=== PATIENT | male | born 1945 | race Two or more races ===

== ENCOUNTER → 2025-01-20 19:30 | Outpatient (REF) | payer OTHER, SELFPAY ==
--- OUTSIDE RECORDS SUMMARY | 2025-01-20 23:18 | XMS_ITS | Encounter Summary ---
Author Name [facility] [place] Address [address] [place] [id number] Care Team Providers Care Home Theater Experience Expert Name Role Phone KAJAL RUCKER Primary Care Provider Unavail able Insurance Providers: All historical and current Section Date Range: From patient's date of to the date document was created. This section includes the names of all active insurance providers for the patient. Insurance Provider Type of Coverage Plan Name Start of Policy Coverage End of Policy Coverage Group Number Member ID Insurance Provider's Telephone Number Policy Hilton's Name Patient's Relationship to Policy Hilton TITLE 19 MEDICAID TITLE 19 Nov 19, 2010 [id number] STEPHON BAUMANN [place] PATIENT Selected Encounter This section includes the information on record at [place] for the Encounter. Date/Time Encounter Type Encounter Description Reason Provider Source Nov 26, 2024 11:00 AM OFF/OP EST MARCH X REQ PHY/QHP PRIMARY CARE/MEDICINE ICD-10-CM Z71.89 Other specified counseling MARÍA GARCIA [facility] Encounter Template Text not used by [place] Assessments - Encounter Diagnoses This section includes the primary and secondary diagnoses documented for the Encounter. Date/Time Primary/Secondary Diagnosis Diagnosis Name Provider Source Nov 26, 2024 11:10 AM PRIMARY Other specified counseling [facility]ÍA [facility] [employer] Plan of Treatment: Future Appointments (+ 6 months) and Future Tests (+/- 45 days) The Plan of Treatment section includes future care activities for the patient from all [place] [facility]. This section includes future appointments and future orders which are active, pending or scheduled. Future Appointments This section includes appointments that were scheduled to occur 6 months from the date of the Encounter, up to a maximum of 20 appointments. The data comes from all [facility]. Appointment Date/Time Appointment Type Appointme nt Facility Name Dec 04, 2024 10:00 AM AMBULATORY - NONE [facility] Jan 28, 2025 12:30 PM AMBULATORY - MEDICINE [facility] Feb 04, 2025 01:00 PM AMBULATORY - NONE [facility] Feb 27, 2025 09:45 AM AMBULATORY - NONE [facility] Active, Pending, and Scheduled Orders This section includes a listing of several types of active, pending, and scheduled orders, including clinic medications orders, diagnostic test orders, procedure orders and consult orders; where the start date of the order is 45 days before the date of the Encounter or 45 days after the date of theEncounter. The data comes from all [facility]. Test Date/Time Test Type Test Details Facility Name Nov 05, 2024 06:28 PM Consult Order COMMUNITY CARE-NEUROLOGY [facility] Dec 02, 2024 11:30 AM Consult Order COMMUNITY [facility]-SLEEP STUDY [facility] Dec 23, 2024 12:00 AM Laboratory - Chemi stry Order LIVER FUNCTION BLOOD (SST-SERUM) [facility] Dec 23, 2024 12:00 AM Laboratory - Chemi stry Order ELECTROLYTE PANEL BLOOD (SST-SERUM) [facility] Vital Signs: All taken on the encounter date This section contains inpatient and outpatient Vital Signs collected on the date of the Encounter. Date/Time Temperature Pulse Blood Pressure Respiratory Rate SP02 Pain Height Weight Body Mass Index Source Nov 26, 2024 11:00 AM 97.6 58 148/92 18 95 161.6 26 [facility] Social History: Smoking Status (Most current) and Tobacco Use (All prior to encounter date) This section includes the most current, and the historical, smoking and tobacco- related health factors from the [place] facility where the Encounter took place. Current Smoking Status This section includes the most current smoking, or tobacco-related health factor, from the [place] facility where the Encounter took place. Date/Time Current Smoking Status Comment Ziyad granda Nov 29, 2023 12:43 PM VA-TOBACCO FORMER USER [facility] Tobacco Use History This section includes a history of the smoking, or tobacco-related health factors, that were collected on or before the date of the Encounter. The data comes from the [place] facility where the Encounter took place. Date/Time Smoking Status/Tobacco Use Comment F acian Nov 29, 2023 12:43 PM VA-TOBACCO QUIT 15 YRS OR MORE [facility] [employer] Nov 10, 2022 01:28 PM VA-TOBACCO [facility]ER [facility] [employer] Nov 10, 2022 01:28 PM [place]-TOBACCO QUIT 15 YRS OR MORE [facility] Advance Directives: All historical and current Section Date Range: From patient's date of to the date document was created. This section includes ALL of a patient's completed or amended [place] Advance and Rescinded Directives. The entries below indicate that a directive exists for the patient, but an actual copy is not included with this document. The data comes from all [place] facilities. Date Advance Directives Provider Source Dec 30, 2024 ADVANCE DIRECTIVE DISCUSSION JEFFREY BECKHAM Dec 09, 2010 ADVANCE DIRECTIVE CARINA AVERY Encounter Notes: All associated encounter notes This section contains the clinical notes associated to the Encounter. Date/Time Encounter Note(s) Provider Source Nov 26, 2024 11:01 AM PRIMARY CARE OUTCT RAYMUNDO NOTE: LOCAL TITLE: AMBULATORY/OUTPATIENT CARE NOTE STANDARD TITLE: PRIMARY CARE OUTPATIENT NOTE DATE OF NOTE: NOV 26, 2024@11:01 ENTRY DATE: NOV 26, 2024@11:01:32 AUTHOR: MARYJANE GARCIA EXP COSIGNER: URGENCY: STATUS: COMPLETED AMBULATORY/OUTPATIENT CARE NOTE Has ADDENDA F: Low back pain D&A: [place] presents to sick call endorsing x 1 month right sided low back pain with parestheias radiating down the right calf. Denies any issues with moving bowels, has dx of benign hypertrophy of prostate. 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 Infant And Toddler Teacher will reach out to pact team with addendum to this note. R: To be evaluated by sick call provider SHEYLA Blood Pressure: 148/92 (11/26/2024 11:00) Pain: 1 (11/05/2024 10:07) Patient Height: 66 in [167.6 cm] (05/23/2022 15:05) Patient Weight: 161.6 lb [73.30 kg] (11/26/2024 11:00) Pulse: 58 (11/26/2024 11:00) Respiration: 18 (11/26/2024 11:00) Temperature: 97.6 F [36.4 C] (11/26/2024 11:00) /ethan/ MARYJANE GARCIA Registered Nurse Signed: 11/26/2024 11:11 Receipt Acknowledged By: 11/26/2024 11:36 /ROSALIA Lin RN-BC REGISTERED NURSE 11/26/2024 ADDENDUM STATUS: COMPLETED Comment added to CC neurology consult requesting cc staff follow up with to update on status of consult. /ROSALIA Lin RN-BC REGISTERED NURSE Signed: 11/26/2024 11:31 MARYJANE GARCIA [place] [facility]
--- OUTSIDE RECORDS SUMMARY | 2025-01-20 23:18 | XMS_ITS | Encounter Summary ---
Author Name [facility] [place] Address [address] [place] [id number] Care Team Providers Care Sane Nurse Name Role Phone KAJAL RUCKER Primary Care [...] 19 MEDICAID TITLE 19 Nov 19, 2010 [id number] STEPHON BAUMANN [place] PATIENT Selected Encounter This section includes the information on record at [place] for the Encounter. Date/Time Encounter Type Encounter Description Reason Pro vider Source Dec 22, 2024 03:06 PM Outpatient Encounter PRIMARY CARE/MEDICINE IHE Encounter Template Text not used by [place] Plan of Treatment: Future Appointments (+ 6 months) and Future Tests (+/- 45 days) The Plan of Treatment section includes future care activities for the patient from all [place] treatmentfacilities. This section includes future appointments and future orders which are active, pending or scheduled. Future Appointments This section includes appointments that were scheduled to occur 6 months from the date of the Encounter, up to a maximum of 20 appointments. The data comes from all [place] treatment facilities. Appointment Date/Time Appointment Type Appointme nt Facility Name Jan 28, 2025 12:30 PM AMBULATORY - MEDICINE [facility] Feb 04, 2025 01:00 PM AMBULATORY - NONE [place] [facility] [place] [facility] Feb 27, 2025 09:45 AM [facility] [place] [facility] Active, Pending, and Scheduled Orders This section includes a listing of several types of active, pending, and scheduled orders, including clinic medications orders, diagnostic test orders, procedure orders and consult orders; where the start date of the order is 45 days before the date of the Encounter or 45 days after the date of theEncounter. The data comes from all [place] treatment facilities. Test Date/Time Test Type Test Details Facility Name Dec 02, 2024 11:30 AM Consult Order COMM[facility]ITY [facility]-SLEEP STUDY Cons Payment Rep's [facility] Dec 23, 2024 12:00 AM Laboratory - Chemi stry Order LIVER FUNCTION BLOOD (SST-SERUM) [facility] Dec 23, 2024 12:00 AM Laboratory - Chemi stry Order ELECTROLYTE PANEL BLOOD (SST-SERUM) [facility] Jan 20, 2025 01:59 PM Consult Order [facility]-PULMONARY Cons Payment Rep's [facility] Social History: Smoking Status (Most current) and Tobacco Use (All prior to encounter date) This section includes the most current, and the historical, smoking and tobacco- related health factors from the [place] facility where the Encounter took place. Current Smoking Status This section includes the most current smoking, or tobacco-related health factor, from the [place] facility where the Encounter took place. Date/Time Current Smoking Status Comment Facil ity Nov 29, 2023 12:43 PM VA-TOBACCO FORMER USER [facility] Tobacco Use History This section includes a history of the smoking, or tobacco-related health factors, that were collected on or before the date of the Encounter. The data comes from the [place] facility where the Encounter took place. Date/Time Smoking Status/Tobacco Use Comment F acility Nov 29, 2023 12:43 PM VA-TOBACCO QUIT 15 YRS OR MORE IN [facility] [place] [facility] Nov 10, 2022 01:28 PM VA-TOBACCO FORMER USER IN [facility] [place] [facility] Nov 10, 2022 01:28 PM VA-TOBACCO QUIT 15 YRS OR MORE [facility] Advance Directives: All historical and current Section Date Range: From patient's date of to the date document was created. This section includes ALL of a patient's completed or amended [place] Advance and Rescinded Directives. The entries below indicate that a directive exists for the patient, but an actual copy is not included with this document. The data comes from all [place] facilities. Date Advance Directives Provider Source Dec 30, 2024 ADVANCE DIRECTIVE DISCUSSION JEFFREY BECKHAM [place] Dec 09, 2010 ADVANCE DIRECTIVE CARINA AVERY JESUS Encounter Notes: All associated encounter notes This section contains the clinical notes associated to the Encounter. Date/Time Encounter Note(s) Provider Source Dec 22, 2024 03:11 PM ADDENDUM: LOCAL TITLE: Addendum STANDARD TITLE: ADDENDUM DATE OF NOTE: DEC 22, 2024@15:11:25 ENTRY DATE: DEC 22, 2024@15:11:26 AUTHOR: BG LAZAR COSIGNER: URGENCY: STATUS: COMPLETED Placed lab orders for electrolyte panel and liver function tests as recommended in [facility] discharge record noted above. /ethan/ ROSALIA BARRIOS RN-BC REGISTERED NURSE Signed: 12/22/2024 15:12 Receipt Acknowledged By: 12/23/2024 07:59 /ethan/ CANDACE ZABALA CERTIFIED NURSE PRACTITIONER ==== --- Original Document --- 12/22/24 NON-VA HOSPITALIZATIONS/ER: NON VA DISCHARGE SUMMARY This data contains relevant information copied & pasted from a NON [place] source. Efforts are made to ensure congruency between this note & the original. This note not DOES NOT contain the entirety of the original. Please see [employer] to view the original note/document. 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) General medical ([id number] ) GERD without esophagitis (K21.9) HLD (hyperlipidemia) (E78.5) Diarrhea (R19.7) Nausea and vomiting (R11.2) Disorder of electrolytes (E87.8) Transaminitis (R74.01) Vertigo (R42) _ Discharge Medications Albuterol (albuterol CFC free 90 mcg/inh inhalation aerosol) 2 puff(s) Inhalation Every 4 hours as needed as needed for wheezing Aspirin (aspirin 81 mg oral capsule) 1 capsule 81 Milligram By Mouth Daily Atorvastatin (Lipitor 40 mg oral tablet) 1 tab(s) 40 Milligram By Mouth Daily at bedtime Brimonidine Ophthalmic (brimonidine 0.2% ophthalmic solution) 1 Drops Eyes, Both Every 8 hours Finasteride (finasteride 5 mg oral tablet) 1 tab(s) 5 Milligram By Mouth Daily Fluticasone Nasal (fluticasone 50 mcg/inh nasal spray) 1 spray(s) Nares, Both 2 times a day Fluticasone-Salmeterol (Wixela Inhub 250 mcg-50 mcg inhalation powder) 1 inhalation Inhalation 2 times a day rinse mouth and throat after use Hydrochlorothiazide-Losartan (hydrochlorothiazide-losartan 25 mg-100 mg oral tablet) 1 tab(s) By Mouth Daily Loratadine (loratadine 10 mg oral tablet) 10 Milligram 1 tablet By Mouth Daily Montelukast (montelukast 10 mg oral tablet) 10 Milligram 1 tablet By Mouth Daily Omeprazole (omeprazole 20 mg oral delayed release tablet) 1 tab(s) 20 Milligram By Mouth Daily PCP Follow-Up/Heads-Up Electrolyte abnormalities/transaminitis - lab abnormalities found while inpatient like 2/2 norovirus gastroenteritis. Please monitor electrolytes and liver panel in 1 week. Patient Instructions You presented to the hospital for ongoing nausea, vomiting, and diarrhea. Testing was positive for norovirus which caused inflammation of your colon. Because of your vomiting and diarrhea you had some lab abnormalities that included low levels of electrolytes. Fortunately, your presenting symptoms have improved and your labs are normal. Please follow-up with your PCP to check your electrolytes in 1 week. Labs also showed possible inflammation of your liver. This may be due to to the viral infection. Please follow-up with your PCP to check liver tests to see if that has resolved. Upcoming Appointments: 01/28/2025 12:30 CWM/SO/PACT 7 02/04/2025 13:00 [facility] DMD 3 PM 02/27/2025 09:45 [facility] RDH 2 AM SENT TO SCANNING This note is entered for the sole purpose of scanning Non-VA documentation into [employer]. /ethan/ ROSALIA BARRIOS RN-BC REGISTERED NURSE Signed: 12/22/2024 15:09 BG LAZAR Dec 22, 2024 03:06 PM NONVA NOTE: LOCAL TITLE: NON-VA HOSPITALIZATIONS/ER STANDARD TITLE: NONVA NOTE DATE OF NOTE: DEC 22, 2024@15:06 ENTRY DATE: DEC 22, 2024@15:07:01 AUTHOR: BG LAZAR COSIGNER: URGENCY: STATUS: COMPLETED NON-VA HOSPITALIZATIONS/ER Has ADDENDA NON VA DISCHARGE SUMMARY This data contains relevant information copied & pasted from a NON [place] source. Efforts are made to ensure congruency between this note & the original. This note not DOES NOT contain the entirety of the original. Please see [employer] to view the original note/document. 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) General medical ([id number] ) GERD without esophagitis (K21.9) HLD (hyperlipidemia) (E78.5) Diarrhea (R19.7) Nausea and vomiting (R11.2) Disorder of electrolytes (E87.8) Transaminitis (R74.01) Vertigo (R42) _ Discharge Medications Albuterol (albuterol CFC free 90 mcg/inh inhalation aerosol) 2 puff(s) Inhalation Every 4 hours as needed as needed for wheezing Aspirin (aspirin 81 mg oral capsule) 1 capsule 81 Milligram By Mouth Daily Atorvastatin (Lipitor 40 mg oral tablet) 1 tab(s) 40 Milligram By Mouth Daily at bedtime Brimonidine Ophthalmic (brimonidine 0.2% ophthalmic solution) 1 Drops Eyes, Both Every 8 hours Finasteride (finasteride 5 mg oral tablet) 1 tab(s) 5 Milligram By Mouth Daily Fluticasone Nasal (fluticasone 50 mcg/inh nasal spray) 1 spray(s) Nares, Both 2 times a day Fluticasone-Salmeterol (Wixela Inhub 250 mcg-50 mcg inhalation powder) 1 inhalation Inhalation 2 times a day rinse mouth and throat after use Hydrochlorothiazide-Losartan (hydrochlorothiazide-losartan 25 mg-100 mg oral tablet) 1 tab(s) By Mouth Daily Loratadine (loratadine 10 mg oral tablet) 10 Milligram 1 tablet By Mouth Daily Montelukast (montelukast 10 mg oral tablet) 10 Milligram 1 tablet By Mouth Daily Omeprazole (omeprazole 20 mg oral delayed release tablet) 1 tab(s) 20 Milligram By Mouth Daily PCP Follow-Up/Heads-Up Electrolyte abnormalities/transaminitis - lab abnormalities found while inpatient like 2/2 norovirus gastroenteritis. Please monitor electrolytes and liver panel in 1 week. Patient Instructions You presented to the hospital for ongoing nausea, vomiting, and diarrhea. Testing was positive for norovirus which caused inflammation of your colon. Because of your vomiting and diarrhea you had some lab abnormalities that included low levels of electrolytes. Fortunately, your presenting symptoms have improved and your labs are normal. Please follow-up with your PCP to check your electrolytes in 1 week. Labs also showed possible inflammation of your liver. This may be due to to the viral infection. Please follow-up with your PCP to check liver tests to see if that has resolved. Upcoming Appointments: 01/28/2025 12:30 CWM/SO/PACT 7 02/04/2025 13:00 [facility] DMD 3 PM 02/27/2025 09:45 [facility] RDH 2 AM SENT TO SCANNING This note is entered for the sole purpose of scanning Non-VA documentation into [employer]. /ethan/ ROSALIA BARRIOS RN-BC REGISTERED NURSE Signed: 12/22/2024 15:09 12/22/2024 ADDENDUM STATUS: COMPLETED Placed lab orders for electrolyte panel and liver function tests as recommended in [facility] discharge record noted above. /ethan/ ROSALIA BARRIOS RN-BC REGISTERED NURSE Signed: 12/22/2024 15:12 Receipt Acknowledged By: * AWAITING SIGNATURE * CORAZON SIMPSON KRISTIN [place]
--- OUTSIDE RECORDS SUMMARY | 2025-01-20 23:18 | XMS_ITS | Encounter Summary ---
Author Name [facility] [place] Organization [place] Address [address] [place] [id number] Care Team Providers Care Manager Hospital Name Role Phone KAJAL RUCKER Primary Care [...] 19 MEDICAID TITLE 19 Nov 19, 2010 [id number] STEPHON BAUMANN [place] PATIENT Selected Encounter This section includes the information on record at [place] for the Encounter. Date/Time Encounter Type Encounter Description Reason Pro vider Source Jan 16, 2025 09:28 AM Outpatient Encounter PRIMARY CARE/MEDICINE IHE Encounter Template Text not used by [place] Plan of Treatment: Future Appointments (+ 6 months) and Future Tests (+/- 45 days) The Plan of Treatment section includes future care activities for the patient from all [place] treatmentfacilities. This section includes future appointments and future orders which are active, pending or scheduled. Future Appointments This section includes appointments that were scheduled to occur 6 months from the date of the Encounter, up to a maximum of 20 appointments. The data comes from all [place] treatment facilities. Appointment Date/Time Appointment Type Appointme nt Facility Name Jan 28, 2025 12:30 PM AMBULATORY - MEDICINE [facility] Feb 04, 2025 01:00 PM AMBULATORY - NONE [place] [facility] [place] [facility] Feb 27, 2025 09:45 AM [facility] [place] [facility] Active, Pending, and Scheduled Orders This section includes a listing of several types of active, pending, and scheduled orders, including clinic medications orders, diagnostic test orders, procedure orders and consult orders; where the start date of the order is 45 days before the date of the Encounter or 45 days after the date of theEncounter. The data comes from all [place] treatment facilities. Test Date/Time Test Type Test Details Facility Name Dec 02, 2024 11:30 AM Consult Order [facility]-SLEEP STUDY Cons Entry Writer's [facility] Dec 23, 2024 12:00 AM Laboratory - Chemi stry Order LIVER FUNCTION BLOOD (SST-SERUM) [facility] Dec 23, 2024 12:00 AM Laboratory - Chemi stry Order ELECTROLYTE PANEL BLOOD (SST-SERUM) [facility] Jan 20, 2025 01:59 PM Consult Order [facility]-PULMONARY Cons Entry Writer's [facility] Social History: Smoking Status (Most current) and Tobacco Use (All prior to encounter date) This section includes the most current, and the historical, smoking and tobacco- related health factors from the [place] facility where the Encounter took place. Current Smoking Status This section includes the most current smoking, or tobacco-related health factor, from the [place] facility where the Encounter took place. Date/Time Current Smoking Status Comment Facil ity Nov 29, 2023 12:43 PM [facility]ACCO [facility] Tobacco Use History This section includes a history of the smoking, or tobacco-related health factors, that were collected on or before the date of the Encounter. The data comes from the [place] facility where the Encounter took place. Date/Time Smoking Status/Tobacco Use Comment F acility Nov 29, 2023 12:43 PM VA-TOBACCO QUIT 15 YRS OR MORE [place] [facility] [place] [facility] Nov 10, 2022 01:28 PM VA-TOBACCO FORMER USER [place] [facility] [place] [facility] Nov 10, 2022 01:28 PM VA-TOBACCO QUIT 15 YRS OR MORE [facility] Advance Directives: All historical and current Section Date Range: From patient's date of to the date document was created. This section includes ALL of a patient's completed or amended [place] Advance and Rescinded Directives. The entries below indicate that a directive exists for the patient, but an actual copy is not included with this document. The data comes from all [place] facilities. Date Advance Directives Provider Source Dec 30, 2024 ADVANCE DIRECTIVE DISCUSSION JEFFREY BECKHAM Dec 09, 2010 ADVANCE DIRECTIVE CARINA AVERY Encounter Notes: All associated encounter notes This section contains the clinical notes associated to the Encounter. Date/Time Encounter Note(s) Provider Source Jan 16, 2025 09:28 AM MEDICATION MGT NOT E: LOCAL TITLE: MEDICATION RENEWAL STANDARD TITLE: MEDICATION MGT NOTE DATE OF NOTE: JAN 16, 2025@09:28 ENTRY DATE: JAN 16, 2025@09:28:43 AUTHOR: BG LAZAR EXP COSIGNER: URGENCY: STATUS: COMPLETED Please renew for mail HCTZ 25MG/LOSARTAN 100MG TAB TAKE 1 TABLET BY MOUTH ONCE ACTIVE DAILY Indication: FOR HIGH BLOOD PRESSURE /es/ ROSALIA BARRIOS RN-BC REGISTERED NURSE Signed: 01/16/2025 09:29 Receipt Acknowledged By: * AWAITING SIGNATURE * KAJAL RUCKER KRISTIN [place]
--- OUTSIDE RECORDS SUMMARY | 2025-01-20 23:18 | XMS_ITS | Encounter Summary ---
Author Name [facility] [place] Organization [facility] [place] Address [address] [place] [id number] Care Team Providers Care Control Systems Designer Name Role Phone KAJAL RUCKER Primary Care [...] 19 MEDICAID TITLE 19 Nov 19, 2010 [id number] STEPHON BAUMANN [place] PATIENT Selected Encounter This section includes the information on record at [place] for the Encounter. Date/Time Encounter Type Encounter Description Reason Provider Source Nov 05, 2024 09:45 AM OFF/OP EST [facility] PRIMARY CARE/MEDICINE ICD-10-CM H57.12 Ocular pain, left eye PARRISH,RAMONITA K Danisha Encounter Template Text not used by [facility] Assessments - Encounter Diagnoses This section includes the primary and secondary diagnoses documented for the Encounter. Date/Time Primary/Secondary Diagnosis Diagnosis Name Provider Source Nov 05, 2024 10:35 AM PRIMARY Ocular pain, left eye PARRISHRAMONITA K [place] Plan of Treatment: Future Appointments (+ 6 months) and Future Tests (+/- 45 days) The Plan of Treatment section includes future care activities for the patient from all VA treatmentfacilities. This section includes future appointments and future orders which are active, pending or scheduled. Future Appointments This section includes appointments that were scheduled to occur 6 months from the date of the Encounter, up to a maximum of 20 appointments. The data comes from all [facility]. Appointment Date/Time Appointment Type Appointme nt Facility Name Nov 26, 2024 10:00 AM AMBULATORY - NONE [facility] [place] [facility] Nov 26, 2024 11:00 AM AMBULATORY - MEDICINE [facility] [place] [facility] Nov 26, 2024 11:30 AM AMBULATORY - MEDICINE [facility] [place] [facility] Dec 04, 2024 10:00 AM AMBULATORY - NONE [facility] [place] [facility] Jan 28, 2025 12:30 PM [facility] Feb 04, 2025 01:00 PM AMBULATORY - NONE [facility] [place] [facility] Feb 27, 2025 09:45 AM [facility] Active, Pending, and Scheduled Orders This section includes a listing of several types of active, pending, and scheduled orders, including clinic medications orders, diagnostic test orders, procedure orders and consult orders; where the start date of the order is 45 days before the date of the Encounter or 45 days after the date of theEncounter. The data comes from all [facility]. Test Date/Time Test Type Test Details Facility Name Nov 05, 2024 06:28 PM Consult Order COMMUNITY [facility]-NEUROLOGY [facility] Dec 02, 2024 11:30 AM Consult Order COMM[facility]SLEEP STUDY [facility] Vital Signs: All taken on the encounter date This section contains inpatient and outpatient Vital Signs collected on the date of the Encounter. Date/Time Temperature Pulse Blood Pressure Respiratory Rate SP02 Pain Height Weight Body Mass Index Source Nov 05, 2024 10:07 AM 98 65 125/80 16 95 1 [place] Social History: Smoking Status (Most current) and Tobacco Use (All prior to encounter date) This section includes the most current, and the historical, smoking and tobacco- related health factors from the [place] facility where the Encounter took place. Current Smoking Status This section includes the most current smoking, or tobacco-related health factor, from the [place] facility where the Encounter took place. Date/Time Current Smoking Status Comment Ziyad granda Nov 28, 2021 01:00 PM VA-TOBACCO FORMER USER [place] Tobacco Use History This section includes a history of the smoking, or tobacco-related health factors, that were collected on or before the date of the Encounter. The data comes from the [place] facility where the Encounter took place. Date/Time Smoking Status/Tobacco Use Comment Alexandra acian Nov 28, 2021 01:00 PM VA-TOBACCO QUIT 15 YRS OR MORE [place] Feb 28, 2019 11:48 AM VA-TOBACCO FORMER USER [place] Feb 28, 2019 11:48 AM VA-TOBACCO QUIT 15 YRS OR MORE [place] Jan 30, 2018 11:32 AM QUIT TOBACCO USE IN PAST YEAR [place] April 02, 2017 10:33 AM QUIT TOBACCO USE IN PAST Y EAR reports quitting 4-5 months ago [place] May 01, 2016 02:52 PM QUIT TOBACCO USE > 7 YEARS AGO Last smoked when I was 23 [place] Dec 21, 2011 10:15 AM QUIT TOBACCO USE > 7 YEARS AGO Pt. quit when he was 23 years old. [place] Dec 01, 2010 01:04 PM QUIT TOBACCO USE 1 -7 YEARS AGO [place] Dec 01, 2010 01:04 PM QUIT TOBACCO USE IN PAST Y EAR Pt. quit smoking a few months ago!! [place] Advance Directives: All historical and current Section Date Range: From patient's date of to the date document was created. This section includes ALL of a patient's completed or amended [place] Advance and Rescinded Directives. The entries below indicate that a directive exists for the patient, but an actual copy is not included with this document. The data comes from all [place] facilities. Date Advance Directives Provider Source Dec 30, 2024 ADVANCE DIRECTIVE DISCUSSION JEFFREY BECKHAM [place] Dec 09, 2010 ADVANCE DIRECTIVE CARINA AVERY Encounter Notes: All associated encounter notes This section contains the clinical notes associated to the Encounter. Date/Time Encounter Note(s) Provider Source Nov 05, 2024 10:36 AM ADDENDUM: LOCAL TITLE: Addendum STANDARD TITLE: ADDENDUM DATE OF NOTE: NOV 05, 2024@10:36:03 ENTRY DATE: NOV 05, 2024@10:36:04 AUTHOR: RAMONITA SENIOR COSIGNER: URGENCY: STATUS: COMPLETED [place] was seen at [facility] on 10/26/24 for left arm numbness. I have pasted a part of note from [facility] in sick call note. He was told to follow up with neurology. I told him I would forward message to you to consider consult. /ethan/ RAMONITA SENIOR RN PRIMARY CARE RN Signed: 11/05/2024 10:37 Receipt Acknowledged By: 11/05/2024 18:23 /ethan/ CANDACE ZABALA CERTIFIED NURSE PRACTITIONER 11/06/2024 09:51 /ethan/ ZHANE PEREA RN REGISTERED NURSE ====== --- Original Document --- 11/05/24 WALK-IN NOTE PRIMARY CARE (T): Data: 79year old MALE [place] reports to Primary Care clinic for Walk-In visit. 's PCP is CORAZON SIMPSON, last visit with PCP was , next visit scheduled for . Today Vet walks in to clinic with complaint of left eye pain and states he was recently in ER states told to see neurology Last recorded Vital Signs are: Temperature:98 F [36.7 C] (11/05/2024 10:07) Pulse:65 (11/05/2024 10:07) Blood Pressure:125/80 (11/05/2024 10:07) Respiration:16 (11/05/2024 10:07) Pain:1 (11/05/2024 10:07) Vet reports current allergies are: Remote Allergy Data No Remote Allergy/ADR Data available for this patient Current Medications from Active Med list include: Active Outpatient Medications (including Supplies): Active Outpatient Medications Status ====== 1) ALBUTEROL 90MCG (CFC-F) 200D ORAL INHL INHALE 2 PUFFS BY ACTIVE MOUTH EVERY 4 HOURS NEEDED COUGH,WHEEZING OR SHORTNESS OF BREATH 2) ASPIRIN 81MG EC TAB TAKE ONE TABLET BY MOUTH ONCE DAILY TO ACTIVE PREVENT STROKE/HEART ATTACK 3) ATORVASTATIN CALCIUM 80MG TAB TAKE ONE-HALF TABLET BY MOUTH ACTIVE ONCE DAILY AT BEDTIME FOR CHOLESTEROL 4) CELECOXIB 200MG CAP TAKE ONE CAPSULE BY MOUTH TWICE DAILY ACTIVE FOR Indication: ARTHRITIS 5) COAL TAR 0.5% SHAMPOO SUFFICIENT AMOUNT TOPICALLY ACTIVE ONCE DAILY NEEDED Indication: FOR SEBORRHEIC DERMATITIS 6) FINASTERIDE 5MG TAB TAKE ONE TABLET BY MOUTH ONCE DAILY ACTIVE DIRECTED BY PROVIDER 7) FLUTICAS 250/SALMETEROL 50 INHL DISK 60 INHALE 1 PUFF BY ACTIVE MOUTH TWICE DAILY - RINSE MOUTH AFTER USE 8) FLUTICASONE PROP 50MCG 120D NASAL INHL INSTILL 1 SPRAY INTO ACTIVE EACH NOSTRIL ONCE DAILY Indication: FOR NASAL IRRITATION/INFLAMMATION 9) HCTZ 25MG/LOSARTAN 100MG TAB TAKE 1 TABLET BY MOUTH ONCE ACTIVE DAILY Indication: FOR HIGH BLOOD PRESSURE 10) HYDROPHILIC (EQV EUCERIN) TOP CREAM APPLY A SMALL AMOUNT ACTIVE TOPICALLY ONCE DAILY TO DRY,CRACKED SKIN ON FEET Indication: FOR DRY SKIN FEET 11) LORATADINE 10MG TAB TAKE ONE TABLET BY MOUTH ONCE DAILY FOR ACTIVE ALLERGY Indication: FOR ALLERGIC CONJUNCTIVITIS 12) MIRABEGRON 50MG SA TAB TAKE ONE TABLET BY MOUTH ONCE DAILY ACTIVE 13) MONTELUKAST NA 10MG TAB TAKE ONE TABLET BY MOUTH ONCE DAILY ACTIVE FOR ASTHMA Indication: FOR SEASONAL RUNNY NOSE 14) NAPHAZOLINE HCL 0.012% OPH SOLN INSTILL 1 DROP INTO EACH EYE ACTIVE TWICE DAILY NEEDED Indication: FOR EYE IRRITATION 15) TRIAMCINOLONE ACETONIDE 0.1% CREAM APPLY A THIN LAYER ACTIVE TOPICALLY TWICE DAILY NEEDED Indication: FOR ITCHING Action: reports 2 days of increase pain to the left eye. States left upper lid with pain, states eye feels like it is burning and feels irritated Denies visual changes Denies trauma Denies crusty drainage on waking up in am. Reports tearing more over the past 2 days. Left upper lid with some edema and erythema, noted with a small white pimple area on the middle part of the upper lid just on the underside. Advised on warm compresses throughout the day Advised to gently cleanse area with baby shampoo. Advised to use otc pain med for comfort. Return to clinic if no improvement or if condition worsens. [place] reports going to ED 10/26/24 [facility] paper work states the following On reevaluation patient appears well. No further symptoms, no return of any numbness. Mostly this reproducible numbness in the hands occurring in the morning after sleeping with his neck to 1 side. I believe this is more likely to be cervical radiculopathy. CT head CT angio head and neck no obvious occlusion, no mass, no subacute CVA to explain patient's symptoms. Feel less likely that this is TIA given he has had this nearly daily for almost a month. Discussed close PCP follow-up, strict return precautions states he was told by the ER to follow up with neurology Advised message to be sent to provider for consideration. Reminders Advance Directive Screen MH AD Nov 29 Suicide Screen Nov 29 Follow Up Colonoscopy Jan 05 Depression Screening Nov 29 Tobacco Use Screening Nov 29 Medication Reconciliation DUE NOW Td / Tdap Immunization Apr 19 Alcohol Use Screen (AUDIT-C) Nov 29 Sexual Orientation Nov 29 (Optional) Whole Health Documentation DUE NOW Suicide Screen: C-SSRS Screening [place] Suicide Severity Rating Scale (C-SSRS) screener 1. Over the past month, have you wished you were or wished you could go to sleep and not wake up? No 2. Over the past month, have you had any actual thoughts of killing yourself? No 3. Over the past month, have you been thinking about how you might do this? Response not required due to responses to other questions. 4. Over the past month, have you had these thoughts and had some intention of acting on them? Response not required due to responses to other questions. 5. Over the past month, have you started to work out or worked out the details of how to kill yourself? Response not required due to responses to other questions. 6. If yes, at any time in the past month did you intend to carry out this plan? Response not required due to responses to other questions. 7. In your lifetime, have you ever done anything, started to do anything, or prepared to do anything to end your life (for example, collected pills, obtained a gun, gave away valuables, went to the roof but didn't jump)? No 8. If YES, was this within the past 3 months? Response not required due to responses to other questions. Sexual Orientation: The patient thinks of their sexual orientation as: Straight or Heterosexual Alcohol Use Screen (AUDIT-C): Alcohol Screen: SCREEN FOR ALCOHOL (AUDIT-C) An alcohol screening test (AUDIT-C) was negative (score=1). 1. How often did you have a drink containing alcohol in the past year? Consider a drink to be a 12 ounce can or bottle of regular beer, 8 ounces of malt liquor, a 5 ounce glass of table wine, or a 1.5 ounce shot of liquor (like scotch, gin, or vodka). Monthly or less 2. How many drinks containing alcohol did you have on a typical day when you were drinking in the past year? One or two drinks 3. How often did you have six or more drinks on one occasion in the past year? Never /es/ RAMONITA SENIOR RN PRIMARY CARE RN Signed: 11/05/2024 10:35 RAMONITA SENIOR [place] Nov 05, 2024 10:08 AM PRIMARY CARE NOTE: LOCAL TITLE: WALK-IN NOTE PRIMARY CARE (T) STANDARD TITLE: PRIMARY CARE NOTE DATE OF NOTE: NOV 05, 2024@10:08 ENTRY DATE: NOV 05, 2024@10:08:05 AUTHOR: RAMONITA SENIOR EXP COSIGNER: URGENCY: STATUS: COMPLETED WALK-IN NOTE PRIMARY CARE (T) Has ADDENDA Data: 79year old MALE [place] reports to Primary Care clinic for Walk-In visit. 's PCP is CORAZON SIMPSON, last visit with PCP was , next visit scheduled for . Today Mike walks in to clinic with complaint of left eye pain and states he was recently in ER states told to see neurology Last recorded Vital Signs are: Temperature:98 F [36.7 C] (11/05/2024 10:07) Pulse:65 (11/05/2024 10:07) Blood Pressure:125/80 (11/05/2024 10:07) Respiration:16 (11/05/2024 10:07) Pain:1 (11/05/2024 10:07) Vet reports current allergies are: Remote Allergy Data No Remote Allergy/ADR Data available for this patient Current Medications from Active Med list include: Active Outpatient Medications (including Supplies): Active Outpatient Medications Status ====== 1) ALBUTEROL 90MCG (CFC-F) 200D ORAL INHL INHALE 2 PUFFS BY ACTIVE MOUTH EVERY 4 HOURS NEEDED COUGH,WHEEZING OR SHORTNESS OF BREATH 2) ASPIRIN 81MG EC TAB TAKE ONE TABLET BY MOUTH ONCE DAILY TO ACTIVE PREVENT STROKE/HEART ATTACK 3) ATORVASTATIN CALCIUM 80MG TAB TAKE ONE-HALF TABLET BY MOUTH ACTIVE ONCE DAILY AT BEDTIME FOR CHOLESTEROL 4) CELECOXIB 200MG CAP TAKE ONE CAPSULE BY MOUTH TWICE DAILY ACTIVE FOR Indication: ARTHRITIS 5) COAL TAR 0.5% SHAMPOO SUFFICIENT AMOUNT TOPICALLY ACTIVE ONCE DAILY NEEDED Indication: FOR SEBORRHEIC DERMATITIS 6) FINASTERIDE 5MG TAB TAKE ONE TABLET BY MOUTH ONCE DAILY ACTIVE DIRECTED BY PROVIDER 7) FLUTICAS 250/SALMETEROL 50 INHL DISK 60 INHALE 1 PUFF BY ACTIVE MOUTH TWICE DAILY - RINSE MOUTH AFTER USE 8) FLUTICASONE PROP 50MCG 120D NASAL INHL INSTILL 1 SPRAY INTO ACTIVE EACH NOSTRIL ONCE DAILY Indication: FOR NASAL IRRITATION/INFLAMMATION 9) HCTZ 25MG/LOSARTAN 100MG TAB TAKE 1 TABLET BY MOUTH ONCE ACTIVE DAILY Indication: FOR HIGH BLOOD PRESSURE 10) HYDROPHILIC (EQV EUCERIN) TOP CREAM APPLY A SMALL AMOUNT ACTIVE TOPICALLY ONCE DAILY TO DRY,CRACKED SKIN ON FEET Indication: FOR DRY SKIN FEET 11) LORATADINE 10MG TAB TAKE ONE TABLET BY MOUTH ONCE DAILY FOR ACTIVE ALLERGY Indication: FOR ALLERGIC CONJUNCTIVITIS 12) MIRABEGRON 50MG SA TAB TAKE ONE TABLET BY MOUTH ONCE DAILY ACTIVE 13) MONTELUKAST NA 10MG TAB TAKE ONE TABLET BY MOUTH ONCE DAILY ACTIVE FOR ASTHMA Indication: FOR SEASONAL RUNNY NOSE 14) NAPHAZOLINE HCL 0.012% OPH SOLN INSTILL 1 DROP INTO EACH EYE ACTIVE TWICE DAILY NEEDED Indication: FOR EYE IRRITATION 15) TRIAMCINOLONE ACETONIDE 0.1% CREAM APPLY A THIN LAYER ACTIVE TOPICALLY TWICE DAILY NEEDED Indication: FOR ITCHING Action: [place] reports 2 days of increase pain to the left eye. States left upper lid with pain, states eye feels like it is burning and feels irritated Denies visual changes Denies trauma Denies crusty drainage on waking up in am. Reports tearing more over the past 2 days. Left upper lid with some edema and erythema, noted with a small white pimple area on the middle part of the upper lid just on the underside. Advised on warm compresses throughout the day Advised to gently cleanse area with baby shampoo. Advised to use otc pain med for comfort. Return to clinic if no improvement or if condition worsens. [place] reports going to ED 10/26/24 [facility] paper work states the following On reevaluation patient appears well. No further symptoms, no return of any numbness. Mostly this reproducible numbness in the hands occurring in the morning after sleeping with his neck to 1 side. I believe this is more likely to be cervical radiculopathy. CT head CT angio head and neck no obvious occlusion, no mass, no subacute CVA to explain patient's symptoms. Feel less likely that this is TIA given he has had this nearly daily for almost a month. Discussed close PCP follow-up, strict return precautions [place] states he was told by the ER to follow up with neurology Advised message to be sent to provider for consideration. Reminders Advance Directive Screen MH AD Nov 29 Suicide Screen Nov 29 Follow Up Colonoscopy Jan 05 Depression Screening Nov 29 Tobacco Use Screening Nov 29 Medication Reconciliation DUE NOW Td / Tdap Immunization Apr 19 Alcohol Use Screen (AUDIT-C) Nov 29 Sexual Orientation Nov 29 (Optional) Whole Health Documentation DUE NOW Suicide Screen: C-SSRS Screening [place] Suicide Severity Rating Scale (C-SSRS) screener 1. Over the past month, have you wished you were or wished you could go to sleep and not wake up? No 2. Over the past month, have you had any actual thoughts of killing yourself? No 3. Over the past month, have you been thinking about how you might do this? Response not required due to responses to other questions. 4. Over the past month, have you had these thoughts and had some intention of acting on them? Response not required due to responses to other questions. 5. Over the past month, have you started to work out or worked out the details of how to kill yourself? Response not required due to responses to other questions. 6. If yes, at any time in the past month did you intend to carry out this plan? Response not required due to responses to other questions. 7. In your lifetime, have you ever done anything, started to do anything, or prepared to do anything to end your life (for example, collected pills, obtained a gun, gave away valuables, went to the roof but didn't jump)? No 8. If YES, was this within the past 3 months? Response not required due to responses to other questions. Sexual Orientation: The patient thinks of their sexual orientation as: Straight or Heterosexual Alcohol Use Screen (AUDIT-C): Alcohol Screen: SCREEN FOR ALCOHOL (AUDIT-C) An alcohol screening test (AUDIT-C) was negative (score=1). 1. How often did you have a drink containing alcohol in the past year? Consider a drink to be a 12 ounce can or bottle of regular beer, 8 ounces of malt liquor, a 5 ounce glass of table wine, or a 1.5 ounce shot of liquor (like scotch, gin, or vodka). Monthly or less 2. How many drinks containing alcohol did you have on a typical day when you were drinking in the past year? One or two drinks 3. How often did you have six or more drinks on one occasion in the past year? Never /ethan/ RAMONITA SENIOR RN PRIMARY CARE RN Signed: 11/05/2024 10:35 11/05/2024 ADDENDUM STATUS: COMPLETED [place] was seen at [facility] on 10/26/24 for left arm numbness. I have pasted a part of note from [facility] in sick call note. He was told to follow up with neurology. I told him I would forward message to you to consider consult. /ethan/ RAMONITA SENIOR RN PRIMARY CARE RN Signed: 11/05/2024 10:37 Receipt Acknowledged By: * AWAITING SIGNATURE * CORAZON SIMPSON * AWAITING SIGNATURE * ZHANE PEREA ERIC [place]
--- OUTSIDE RECORDS SUMMARY | 2025-01-20 23:18 | XMS_ITS | Encounter Summary ---
Author Name [facility] [place] [facility] [place] Organization [facility] [place] [facility] [place] Address [address] [place] [id number] Care Team Providers Care Chemistry Technical Officer Name Role Phone KAJAL RUCKER Primary Care [...] 19 MEDICAID TITLE 19 Nov 19, 2010 [id number] STEPHON BAUMANN [place] PATIENT Selected Encounter This section includes the information on record at [place] for the Encounter. Date/Time Encounter Type Encounter Description Reason Provider Source Jan 23, 2024 11:30 AM OFF/OP EST [facility] PRIMARY CARE/MEDICINE ICD-10-CM R68.89 Other general symptoms and signs RAMONITA SENIOR [facility] Encounter Template Text not used by [place] Assessments - Encounter Diagnoses This section includes the primary and secondary diagnoses documented for the Encounter. Date/Time Primary/Secondary Diagnosis Diagnosis Name Provider Source Jan 23, 2024 11:52 AM PRIMARY Other general symptoms and signs RAMONITA SENIOR DAVID Plan of Treatment: Future Appointments (+ 6 [...] 20 appointments. The data comes from all [place] treatment facilities. Appointment Date/Time Appointment Type Appointme nt Facility Name Jan 24, 2024 11:30 AM AM[place]UL[place]ORY [place]IC[place] [facility] [place] [facility] Feb 25, 2024 08:00 AM [facility] Feb 27, 2024 09:15 AM [facility] Feb 27, 2024 09:30 AM [facility] Mar 06, 2024 11:15 AM [facility] Mar 07, 2024 03:00 PM [facility] May 21, 2024 12:45 PM AMBULATORY - NONE [facility] [place] [facility] May 30, 2024 01:30 PM [facility] May 30, 2024 03:00 PM [facility] Jun 17, 2024 03:00 PM AMBULATORY - NONE [place] [facility] [place] [facility] Jun 20, 2024 11:30 AM [facility] Jul 09, 2024 07:30 AM AMBULATORY - NONE [facility] [place] [facility] Jul 16, 2024 10:10 AM [place] [facility] [place] [facility] Jul 17, 2024 09:10 AM [place] [facility] [place] [facility] Vital Signs: All taken on the encounter date This section contains inpatient and outpatient Vital Signs collected on the date of the Encounter. Date/Time Temperature Pulse Blood Pressure Respiratory Rate SP02 Pain Height Weight Body Mass Index Source Jan 23, 2024 11:40 AM 97 72 122/75 16 92 0 [place] Jan 23, 2024 09:17 AM 72 122/75 [place] Social History: Smoking Status (Most current) and Tobacco Use (All prior to encounter date) This section includes the most current, and the historical, smoking and tobacco- related health factors from the [facility] facility where the Encounter took place. Current Smoking Status This section includes the most current smoking, or tobacco-related health factor, from the [facility] facility where the Encounter took place. Date/Time Current Smoking Status Comment Facil ity Nov 28, 2021 01:00 PM VA-TOBACCO FORMER USER [facility] Tobacco Use History This section includes a history of the smoking, or tobacco-related health factors, that were collected on or before the date of the Encounter. The data comes from the [place] facility where the Encounter took place. Date/Time Smoking Status/Tobacco Use Comment Alexandra maxwell Nov 28, 2021 01:00 PM VA-TOBACCO QUIT 15 YRS OR MORE [facility] Feb 28, 2019 11:48 AM VA-TOBACCO FORMER USER [facility] Feb 28, 2019 11:48 AM VA-TOBACCO QUIT 15 YRS OR MORE [facility] Jan 30, 2018 11:32 AM QUIT TOBACCO USE IN PAST YEAR [facility] April 02, 2017 10:33 AM QUIT TOBACCO USE IN PAST Y EAR reports quitting 4-5 months ago [facility] May 01, 2016 02:52 PM QUIT TOBACCO USE > 7 YEARS AGO Last smoked when I was 23 [facility] Dec 21, 2011 10:15 AM QUIT TOBACCO USE > 7 YEARS AGO Pt. quit when he was 23 years old. [facility] Dec 01, 2010 01:04 PM QUIT TOBACCO USE 1 -7 YEARS AGO [facility] Dec 01, 2010 01:04 PM QUIT TOBACCO USE IN PAST Y EAR Pt. quit smoking a few months ago!! [facility] Advance Directives: All historical and current Section Date Range: From patient's date of to the date document was created. This section includes ALL of a patient's completed or amended [place] Advance and Rescinded Directives. The entries below indicate that a directive exists for the patient, but an actual copy is not included with this document. The data comes from all [facility]. Date Advance Directives Provider Source Dec 30, 2024 ADVANCE DIRECTIVE DISCUSSION JEFFREY BECKHAM [facility] Dec 09, 2010 ADVANCE DIRECTIVE CARINA AVERY Encounter Notes: All associated encounter notes This section contains the clinical notes associated to the Encounter. Date/Time Encounter Note(s) Provider Source Jan 23, 2024 11:42 AM PRIMARY CARE NOTE: LOCAL TITLE: WALK-IN NOTE PRIMARY CARE (T) STANDARD TITLE: PRIMARY CARE NOTE DATE OF NOTE: JAN 23, 2024@11:42 ENTRY DATE: JAN 23, 2024@11:42:20 AUTHOR: DAYO BOWEN COSIGNER: URGENCY: STATUS: COMPLETED <====Click to Start Advanced Medical Support presents to the Primary Care clinic with the following request: [ ]Medication Renewal/Refill [ ]Consultation with Team RN [ X ]Symptoms [ ]Other The Bude states they are: [ X ]Waiting [ ]Not Waiting Yes Walk in visit scheduled with PACT Nurse [ X ] At this encounter the Bude's demographics were verified. [ X ] At this encounter the 's Insurance information was verified. [ ] At this encounter the below scheduled visits for the Bude were discussed and appointment reminder card was offered. Future appointments: 01/23/2024 11:45 CWM/SO/SICK CALL SNOWBOARDER 01/24/2024 11:30 CWM/NO/PODIATRY A 05/21/2024 16:00 CWM/NO/DENTAL/DMD3 PM 05/30/2024 13:00 CWM/SO/PACT 4 06/17/2024 15:00 CWM/NO/DENTAL/DMD3 PM 07/04/2024 11:00 CWM/NO/DENTAL/RDH1 AM 07/15/2024 13:45 CWM/NO/DENTAL/DMD3 PM 08/12/2024 13:45 CWM/NO/DENTAL/DMD3 PM 09/09/2024 13:45 CWM/NO/DENTAL/DMD3 PM 10/07/2024 13:45 CWM/NO/DENTAL/DMD3 PM SICK CALL removal of ana in head /es/ DAYO BOWEN ADVANCED HOT METAL MIXER OPERATOR HELPER Signed: 01/23/2024 11:43 Receipt Acknowledged By: 01/23/2024 11:46 /es/ CANDACE ZABALA CERTIFIED NURSE PRACTITIONER 01/23/2024 13:03 /es/ RAMONITA SENIOR RN PRIMARY CARE RN 01/23/2024 11:50 /es/ ZHANE PEREA RN REGISTERED NURSE DAYO BOWEN Jan 23, 2024 11:41 AM PRIMARY CARE NOTE: LOCAL TITLE: WALK-IN NOTE PRIMARY CARE (T) STANDARD TITLE: PRIMARY CARE NOTE DATE OF NOTE: JAN 23, 2024@11:41 ENTRY DATE: JAN 23, 2024@11:41:22 AUTHOR: RAMONITA SENIOR EXP COSIGNER: URGENCY: STATUS: COMPLETED Data: 78year old MALE Bude reports to Primary Care clinic for Walk-In visit. Bude's PCP is WONG VALENCIA Today Vet walks in to clinic with complaint of needing ana removed. Last recorded Vital Signs are: Temperature:97 F [36.1 C] (01/23/2024 11:40) Pulse:72 (01/23/2024 11:40) Blood Pressure:122/75 (01/23/2024 11:40) Respiration:16 (01/23/2024 11:40) Pain:0 (01/23/2024 11:40) Vet reports current allergies are:Remote Allergy Data No Remote Allergy/ADR Data available for this patient Current Medications from Active Med list include: Active Outpatient Medications (including Supplies): Active Outpatient Medications Status === 1) ALBUTEROL 90MCG (CFC-F) 200D ORAL INHL INHALE 2 PUFFS ACTIVE BY MOUTH EVERY 4 HOURS NEEDED COUGH,WHEEZING OR SHORTNESS OF BREATH 2) ATORVASTATIN CALCIUM 80MG TAB TAKE ONE-HALF TABLET BY ACTIVE MOUTH ONCE DAILY AT BEDTIME FOR CHOLESTEROL 3) CARBOXYMETHYLCELLULOSE NA 0.5% OPH SOLN INSTILL 1 ACTIVE DROP INTO EACH EYE FOUR TIMES DAILY NEEDED 4) CELECOXIB 200MG CAP TAKE ONE CAPSULE BY MOUTH TWICE ACTIVE DAILY FOR ARTHRITIS 5) CETIRIZINE HCL 10MG TAB TAKE ONE TABLET BY MOUTH ONCE ACTIVE DAILY 6) DEXAMETHASONE 0.1/TOBRAMYC 0.3% OPH SUSP INSTILL 1 ACTIVE DROP INTO EACH EYE THREE TIMES A DAY 7) FLUTICAS 250/SALMETEROL 50 INHL DISK 60 INHALE 1 PUFF ACTIVE BY MOUTH TWICE DAILY - RINSE MOUTH AFTER USE 8) FLUTICASONE PROP 50MCG 120D NASAL INHL INSTILL 1 ACTIVE SPRAY INTO EACH NOSTRIL ONCE DAILY PLEASE SPRAY 2 SPRAYS IN EACH NOSTRIL DAILY FOR 3-4 WEEKS , THEN DECREASE TO 1 SPRAY DAILY THEREAFTER 9) HCTZ 25MG/LOSARTAN 100MG TAB TAKE 1 TABLET BY MOUTH ACTIVE ONCE DAILY 10) LUBRICATING (PF) OPH OINT APPLY SMALL AMOUNT INTO ACTIVE EACH EYE AT BEDTIME NEEDED 11) MIRABEGRON 50MG SA TAB TAKE ONE TABLET BY MOUTH ONCE ACTIVE DAILY 12) SILDENAFIL CITRATE 25MG TAB TAKE ONE TABLET BY MOUTH ACTIVE ONCE DAILY NEEDED FOR ERECTILE DYSFUNCTION TAKE 1 HOUR PRIOR TO SEXUAL ACTIVITY 13) TRIAMCINOLONE ACETONIDE 0.1% CREAM APPLY A THIN LAYER ACTIVE TOPICALLY TWICE DAILY NEEDED Action: Bude states he fell over a week ago hitting his head requiring ana. States he went to ED today for removal, [facility] come to [facility]. denies headache or dizziness 6 ana left front of scalp scabbing noted, no drainage removed without concern educated signs of infection. Verbalized understanding. Reminders Homelessness/Food Insecurity Screen Jan 12 [facility] Referral DUE NOW Medication Reconciliation DUE NOW RHS Screen DUE NOW /ethan/ RAMONITA SENIOR RN PRIMARY CARE RN Signed: 01/23/2024 11:52 RAMONITA SENIOR [facility]
--- OUTSIDE RECORDS SUMMARY | 2025-01-20 23:18 | XMS_ITS | Encounter Summary ---
Author Organization [facility] Address [address] [place] [address] Care Team Providers Care Hydrochloric Manufacturing Supervisor Name Role Phone Chica Harmon MD Primary Care Provider [phone] Encounter Details Date Type Department Care Team (Late st Contact Info) Description 12/29/2024 Nurse Triage Adult [address] [phone] Edelmira Marquez, RN Social History Tobacco Use Types Packs/Day Years Used Date Smoking Tobacco: Former Cigarettes Q uit: 11/19/1969 Smokeless Tobacco: Never Alcohol Use Standard Drinks/Week Comments Yes 2 (1 standard drink = 0.6 oz pur e alcohol) Sex and Gender Information Value Date Recorded Sex Assigned at Not on file Legal Sex Male 10:45 AM EST Gender Identity Not on file Sexual Orientation Not on file documented as of this encounter Progress Notes * Edelmira Marquez RN - 12/29/2024 11:04 AM EST Pt received in the Adult Medicine [facility] waiting room. He was reporting shortness of breath and dizziness. He follows with Valentina, tearoom host, at [address] [place] [address]. He states he has had intermittent shortness of breath and dizziness for years worsening over past 6months to 1 year. He rates his dizziness as 5/10 currently. His industrial/organizational psychologist strengths are equal bilaterally. No facial droop noted. He is alert and oriented. Symptoms reviewed with Dr. Erickson. Per Dr. Erickson pt should follow up with his PCP. He was instructed to follow up with his PCP and tearoom host. He is in agreement with this plan. Reason for Disposition ??? [1] MODERATE longstanding difficulty breathing (e.g., speaks in phrases, SOB even at rest, pulse 100-120) AND [2] SAME as normal Answer Assessment - Initial Assessment Questions 1. RESPIRATORY STATUS: Describe your breathing? (e.g., wheezing, shortness of breath, unable to speak, severe coughing) He reports shortness of breath which is improving. 2. ONSET: When did this breathing problem begin? Years ago. Today his symptoms started 10 minutes ago 3. PATTERN Does the difficult breathing come and go, or has it been constant since it started? Intermittent 4. SEVERITY: How bad is your breathing? (e.g., mild, moderate, severe) - MILD: No SOB at rest, mild SOB with walking, speaks normally in sentences, can lie down, no retractions, pulse < 100. - MODERATE: SOB at rest, SOB with minimal exertion and prefers to sit, cannot lie down flat, speaksin phrases, mild retractions, audible wheezing, pulse 100 to 120. - SEVERE: Very SOB at rest, speaks in single words, struggling to breathe, sitting hunched forward,retractions, pulse > 120 He reports shortness of breath with activity 5. RECURRENT SYMPTOM: Have you had difficulty breathing before? If Yes, ask: When was the last time? and What happened that time? Yes. Pt was admitted to [facility] approximately 2 weeks ago for similar symptoms and norovirus 6. CARDIAC HISTORY: Do you have any history of heart disease? (e.g., heart attack, angina, bypasssurgery, angioplasty) No history of heart disease 7. LUNG HISTORY: Do you have any history of lung disease? (e.g., pulmonary embolus, asthma, emphysema) Pingeon lung 8. CAUSE: What do you think is causing the breathing problem? He states he was on supplemental oxygen in the past and it was stopped a couple of years ago. He thinks he needs oxygen again 9. OTHER SYMPTOMS: Do you have any other symptoms? (e.g., chest pain, cough, dizziness, fever, runny nose) No chest pain, He is reporting dizziness but states it is improving. 10. O2 SATURATION MONITOR: Do you use an oxygen saturation monitor (pulse oximeter) at home? If Yes, ask: What is your reading (oxygen level) today? What is your usual oxygen saturation reading? (e.g., 95%) He does not have a pulse oximeter at home 11. : Is there any chance you are ? When was your last menstrual period? No. Pt is a male. 12. TRAVEL: Have you traveled out of the country in the last month? (e.g., travel history, exposures) No. Protocols used: Breathing [id number] documented in this encounter Plan of Treatment Upcoming Encounters Date Type Department Care Team ([facility] st Contact Info) Description 02/04/2025 1:40 PM EDT Office Visit Pulmonolgy - [place] [address] [facility] [address] [place] [phone] Jennie Gonzalez NP [address] [phone] documented as of this encounter Visit Diagnoses Not on filedocumented in this encounter Care Teams Hydrochloric Manufacturing Supervisor Relationship Specialty Start Date End Date Chica Harmon MD [address] [place] [phone] PCP - General 06/20/23 documented as of this encounter
--- OUTSIDE RECORDS SUMMARY | 2025-01-20 23:18 | XMS_ITS ---
Author Name [facility] Organization [facility] [place] Address [address] [place] [address] Care Team Providers Care Train Dispatcher Name Role Phone CHAIM KAJAL Primary Care Provider Unavail able Insurance Providers: [...] 19 MEDICAID TITLE 19 Nov 19, 2010 [id number] STEPHON BAUMANN [place] PATIENT Selected Encounter This section includes the information on record at [place] for the Encounter. Date/Time Encounter Type Encounter Description Reason Provider Source Nov 26, 2024 11:30 AM OFFICE O/P EST MOD 30 MIN PRIMARY CARE/MEDICINE ICD-10-CM M54.50 Low back pain, unspecified ZBIGNIEW [place] [facility] Encounter Template Text not used by [place] Assessments - Encounter Diagnoses This section includes the primary and secondary diagnoses documented for the Encounter. Date/Time Primary/Secondary Diagnosis Diagnosis Name Provider Source Nov 26, 2024 03:09 PM PRIMARY Low back pain, unspecified ZBIGNIEW [place] [facility] [place] [facility] Nov 26, 2024 03:09 PM SECONDARY Essential (primary) hypertension [place],[facility] Plan of Treatment: Future Appointments (+ 6 months) and Future Tests (+/- 45 days) The Plan of Treatment section includes future care activities for the patient [facility] This section includes future appointments and future orders which are active, pending or scheduled. Future Appointments This section includes appointments that were scheduled to occur 6 months from the date of the Encounter, up to a maximum of 20 appointments. The data comes from all [facility]. Appointment Date/Time Appointment Type Appointme nt Facility Name Dec 04, 2024 10:00 AM AMBULATORY - NONE [facility] Jan 28, 2025 12:30 PM AMBULATORY - MEDICINE [facility] Feb 04, 2025 01:00 PM AMBULATORY - NONE [facility] Feb 27, 2025 09:45 AM AMBULATORY - NONE [facility] Active, Pending, and Scheduled Orders This section includes a listing of several types of active, pending, and scheduled orders, including clinic medications orders, diagnostic test orders, procedure orders and consult orders; where the start date of the order is 45 days before the date of the Encounter or 45 days after the date of theEncounter. The data comes from all [facility]. Test Date/Time Test Type Test Details Facility Name Nov 05, 2024 06:28 PM Consult Order COMMUNITY CARE-NEUROLOGY [facility] [employer] Operator's [facility] Dec 02, 2024 11:30 AM Consult Order COMMUNITY [facility]-SLEEP STUDY [facility] [employer] [facility] Dec 23, 2024 12:00 AM Laboratory - Chemi stry Order LIVER FUNCTION BLOOD (SST-SERUM) [facility] Dec 23, 2024 12:00 AM Laboratory - Chemi stry Order ELECTROLYTE PANEL BLOOD (SST-SERUM) [facility] Vital Signs: All taken on the encounter date This section contains inpatient and outpatient Vital Signs collected on the date of the Encounter. Date/Time Temperature Pulse Blood Pressure Respiratory Rate SP02 Pain Height Weight Body Mass Index Source Nov 26, 2024 11:00 AM 97.6 58 148/92 18 95 161.6 26 [facility] Social History: Smoking Status (Most current) and Tobacco Use (All prior to encounter date) This section includes the most current, and the historical, smoking and tobacco- related health factors from the [place] facility where the Encounter took place. Current Smoking Status This section includes the most current smoking, or tobacco-related health factor, from the [place] facility where the Encounter took place. Date/Time Current Smoking Status Comment Ziyad granda Nov 29, 2023 12:43 PM VA-TOBACCO FORMER USER [facility] Tobacco Use History This section includes a history of the smoking, or tobacco-related health factors, that were collected on or before the date of the Encounter. The data comes from the [place] facility where the Encounter took place. Date/Time Smoking Status/Tobacco Use Comment Alexandra maxwell Nov 29, 2023 12:43 PM VA-TOBACCO QUIT 15 YRS OR MORE [facility] Nov 10, 2022 01:28 PM VA-TOBACCO FORMER USER [facility] Nov 10, 2022 01:28 PM VA-TOBACCO QUIT 15 YRS OR MORE [facility] Advance Directives: All historical and current Section Date Range: From patient's date of to the date document was created. This section includes ALL of a patient's completed or amended [place] Advance and Rescinded Directives. The entries below indicate that a directive exists for the patient, but an actual copy is not included with this document. The data comes from all [place] facilities. Date Advance Directives Provider Source Dec 30, 2024 ADVANCE DIRECTIVE DISCUSSION JEFFREY BECKHAM Dec 09, 2010 ADVANCE DIRECTIVE CARINA AVERY Encounter Notes: All associated encounter notes This section contains the clinical notes associated to the Encounter. Date/Time Encounter Note(s) Provider Source Nov 26, 2024 11:24 AM PHYSICIAN COOLER TENDER NOTE: LOCAL TITLE: PA NOTE STANDARD TITLE: PHYSICIAN COOLER TENDER NOTE DATE OF NOTE: NOV 26, 2024@11:24 ENTRY DATE: NOV 26, 2024@11:24:30 AUTHOR: ZBIGNIEW [place]ROE EXP COSIGNER: URGENCY: STATUS: COMPLETED SICK CALL VISIT HPI: 79 year old male presents with below noted PMHx endorsing 1 month of right sided LBP with sharp pain radiating down to the right calf. He has no change in B/B control; no other paraesthesias. He is able to walk. He has had relief from using his mother's (age 96 years) Lidocaine patches and would like to have the prescribed for himself. He is also agreeable to use of diclofenac gel 1% to the area. He also mentions he has a massage scheduled today. REVIEW OF SYSTEMS: A 12 point review of systems is negative except as noted in the HPI. 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 02/14/2021 WILIAM CARDOZA Osteoarthritis of multiple joints M 10/26/2024 CORAZON SIMPSON Recurrent sinusitis R69. 10/26/2024 KELLY GARCIA Colonoscopy Screening R69. 06/18/2020 WILIAM CARDOZA Pulmonary fibrosis J84.10 10/26/2024 TELLY RUBIO Hypertension I10. 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 06/18/2020 WILIAM CARDOZA Bradycardia R69. 06/18/2020 WILIAM CARDOZA Benign prostatic hypertrophy withou 10/26/2024 WILIAM CARDOZA Cortical senile cataract (ICD-9-CM 02/10/2011 TRINY RHODES Hyperlipidemia E78.2 07/05/2020 WILIAM CARDOZA Allergic rhinitis J30.9 07/05/2020 WILIAM CARDOZA History of cholecystectomy R69., On 06/18/2020 WILIAM CARDOZA Meds: Active Outpatient Medications (including Supplies): ALBUTEROL 90MCG (CFC-F) 200D ORAL INHL INHALE 2 PUFFS BY ACTIVE MOUTH EVERY 4 HOURS NEEDED COUGH,WHEEZING OR SHORTNESS OF BREATH ATORVASTATIN CALCIUM 80MG TAB TAKE ONE-HALF TABLET BY ACTIVE MOUTH ONCE DAILY AT BEDTIME FOR CHOLESTEROL CELECOXIB 200MG CAP TAKE ONE CAPSULE BY MOUTH TWICE DAILY ACTIVE FOR Indication: ARTHRITIS COAL TAR 0.5% SHAMPOO SHAMPOO SUFFICIENT AMOUNT TOPICALLY ACTIVE ONCE DAILY NEEDED Indication: FOR SEBORRHEIC DERMATITIS DICLOFENAC NA 1% TOP GEL APPLY 4 GRAMS TOPICALLY FOUR PENDING TIMES A DAY FOR OSTEOARTHRITIS - USE DOSING CARD PROVIDED IN BOX Indication: FOR JOINT PAIN FINASTERIDE 5MG TAB TAKE ONE TABLET BY MOUTH ONCE DAILY ACTIVE DIRECTED BY PROVIDER FLUTICAS 250/SALMETEROL 50 INHL DISK 60 INHALE 1 PUFF BY ACTIVE MOUTH TWICE DAILY - RINSE MOUTH AFTER USE FLUTICASONE PROP 50MCG 120D NASAL INHL INSTILL 1 SPRAY ACTIVE INTO EACH NOSTRIL ONCE DAILY Indication: FOR NASAL IRRITATION/INFLAMMATION HCTZ 25MG/LOSARTAN 100MG TAB TAKE 1 TABLET BY MOUTH ONCE ACTIVE DAILY Indication: FOR HIGH BLOOD PRESSURE HYDROPHILIC (EQV EUCERIN) TOP CREAM APPLY A SMALL AMOUNT ACTIVE TOPICALLY ONCE DAILY TO DRY,CRACKED SKIN ON FEET Indication: FOR DRY SKIN FEET LIDOCAINE 5% PATCH APPLY 1 PATCH TOPICALLY ONCE DAILY PENDING NEEDED (LEAVE PATCH ON FOR 12 HOURS, THEN REMOVE PATCH) Indication: FOR NERVE PAIN LORATADINE 10MG TAB TAKE ONE TABLET BY MOUTH ONCE DAILY ACTIVE FOR ALLERGY Indication: FOR ALLERGIC CONJUNCTIVITIS MIRABEGRON 50MG SA TAB TAKE ONE TABLET BY MOUTH ONCE DAILY ACTIVE MONTELUKAST NA 10MG TAB TAKE ONE TABLET BY MOUTH ONCE ACTIVE DAILY FOR ASTHMA Indication: FOR SEASONAL RUNNY NOSE NAPHAZOLINE HCL 0.012% OPH SOLN INSTILL 1 DROP INTO EACH ACTIVE EYE TWICE DAILY NEEDED Indication: FOR EYE IRRITATION TRIAMCINOLONE ACETONIDE 0.1% CREAM APPLY A THIN LAYER ACTIVE TOPICALLY TWICE DAILY NEEDED Indication: FOR ITCHING Allergies: POLLEN, ANTIVERT Date Vital Measurement Qualifiers 11/26/2024 11:00 Temp F (C) 97.6 (36.4) Pulse 58 Respir 18 BP 148/92 Wt lbs (kg)[BMI] 161.6 (73.30)[26] POx (L/Min)(%) 95 At Rest FOCUSED EXAMINATION GEN: WDWN, able to bear own weight, moving about the room freely without external display of weakness/pain Vascular: well perfused Neuro: nonfocal MSK: SP/PSP bilat of the LS spine is NTTP. Tenderness of the right QL region with palpable ropey texture without spasm noted. No tenderness of the trocanteric region. Calves are bilaterally unremarkable. ROM uninhibited MDM: No evidence of acute NV/NS or gross functional deficit. Lidocaine patches and Diclofenac gel 1% 4 g as prescribed. Continue with conservative measures. RTC PRN. ASSESSMENT/PLAN Low back pain HTN: slight elevation without symptoms: follow as above On this date of the encounter, I spent 30 minutes on some or all of the following: chart review, history, physical examination, treatment planning, education and counseling of the patient/family/resident care associate, placing orders, communicating with other health care providers and documentation in the electronic health record. able to verbalize understanding of plan of care and agrees. >> MEDICATIONS Reviewed and reconciled with /ethan/ ZBIGNIEW PUGA MS,PA-C PHYSICIAN COOLER TENDER Signed: 11/26/2024 15:09 ZBIGNIEW [place] [facility]
--- OUTSIDE RECORDS SUMMARY | 2025-01-20 23:18 | XMS_ITS | Clinical Summary ---
Author Organization [address] [facility] Address [address] [place] [address] Phone Care Team Providers Care Biometrics Head Name Role Phone Chica Harmon MD Primary Care Provider [phone] Allergies Active Allergy Reactions Criticality Noted Date Comments Grass Pollen 03/01/2020 House Dust Low 01/20/2020 Other Reaction(s): sneezing, watery eyes, itching Meclizine Nausea And Vomiting 03/05/2020 Medications omeprazole 20 mg tablet,disinteg rat, delay rel Take 20 mg by mouth 1 (one) time each day. Active simvastatin (ZOCOR) 10 mg tablet Take 0.5 tablets (5 mg total) by mouth at bedtime. Active naproxen (NAPROSYN) 250 mg tablet Take 250 mg by mouth every 6 hours Active hydroCHLOROthia zide (HYDRODIURIL) 25 mg tablet Take 1 tablet (25 mg total) by mouth 1 (one) time each day. Active fluticasone propionate (FLONASE) 50 mcg/actuation nasal spray 1 [place] by Nasal route daily. Please spray 2 sprays in each nostrils daily for 3-4 weeks, then down to 1 spray in each nostril daily 06/20/2023 Active fluticasone-bereket meterol (ADVAIR DISKUS) 250-50 mcg/dose diskus inhaler Inhale 1 Puff into the lungs 2 times daily. 06/20/2023 Active finasteride (PROSCAR) 5 mg tablet Take 1 tablet (5 mg total) by mouth at bedtime. 02/07/2020 Active cetirizine (ZyrTEC) 10 mg tablet Take 1 tablet (10 mg total) by mouth 1 (one) time each day. 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 Cardiac dysrhythmia 03/05/2020 Hypertension 03/05/2020 Hyperlipidemia 03/05/2020 Prediabetes 03/05/2020 GERD (gastroesophageal reflux disease) 0 Polycythemia 03/05/2020 BPH (benign prostatic hyperplasia) 03/05/2020 Migraine 03/05/2020 Mood disorder 03/05/2020 Allergic rhinitis 03/05/2020 Cataract 03/05/2020 [place]' lung 03/05/2020 RSV (respiratory syncytial virus pneumonia) 02/17 Overview (08/22/2024): 02/11/20 [place] Nursing Telephone Note: Pt states was admitted to [facility] on 02/06/20 for cough, sob, & congestion which ended up being RSV pneumonia, was given antibiotics & steroids & was d/c'd after 1 1/2 days with a steroid inhaler & po prednisone. He was tested for coronavirus, but had not heard the results. Was urged to self quarrantine for 14 days Encounters Date Type Department Care Team Description 12/29/2024 Nurse Triage Adult Medicine [address] [phone] Edelmira Marquez, KODI from Last 3 Months Immunizations Name Administration Dates Next Due Moderna SARS-CoV-2 COVID-19, mRNA, LNP-S, preservative free 10/20/2021,02/19/2021,01/22/2021 Pneumococcal polysaccharide 23 valent (Pneumovax 23) 2yo and older 06/20/2023 Tdap Tetanus diptheria acell ular pertussis (Boostrix; Adacel) 7yo and older 01/15/2024 Surgical History Surgery Date Site/Laterality Comments UPPER GASTROINTESTINAL ENDOSCOPY 03/03/2020 PROCEDURE: ID UPPER GI ENDOSCOPY PERFORMED; COMMENT: Normal COLONOSCOPY 12/31/2014 PROCEDURE: HISTORICAL COLONOSCOPY; COMMENT: Normal, Repeat 10 yrs CHOLECYSTECTOMY 1994 PROCEDURE: ID LAPAROSCOPY SURG CHOLECYSTECTOMY Medical History Medical History Date Comments Odynophagia 03/05/2020 DX:Odynophagia GERD (gastroesophageal reflux disease) 03/05/2020 DX:GERD (gastroesophageal reflux disease) BPH (benign prostatic hyperplasia) 03/05/2020 DX:BPH (benign prostatic hyperplasia) Allergic rhinitis 03/05/2020 DX:Allergic rh initis Hyperlipidemia 03/05/2020 DX:Hyperlipidemi a Hypertension 03/05/2020 DX:Hypertension [place]' lung (CMS/HCC) 03/05/2020 DX:[place]' lung (HCC) Prediabetes 03/05/2020 DX:Prediabetes Liver function study, abnormal 03/05/2020 D X:Liver function study, abnormal Cardiac dysrhythmia 03/05/2020 DX:Cardiac d ysrhythmia Chronic periodontitis 03/05/2020 DX:Chronic periodontitis Disease of gallbladder 03/05/2020 DX:Diseas e of gallbladder Enlarged lymph nodes 03/05/2020 DX:Enlarged lymph nodes Polycythemia 03/05/2020 DX:Polycythemia Cataract 03/05/2020 DX:Cataract Mood disorder (CMS/HCC) 03/05/2020 DX:Mood disorder (HCC) History of traumatic brain injury 03/05/2020 DX:History of traumatic brain injury Migraine 03/05/2020 DX:Migraine RSV (respiratory syncytial v irus pneumonia) 03/05/2020 DX:RSV (respiratory syncytia l virus pneumonia); COMMENT: 02/11/20 [place] [facility] Telephone Note: Pt states was admitted to [facility] on 02/06/20 for cough, sob, & congestion which ended up being RSV pneumonia, was given antibiotics & steroids & was d/c'd after 1 1/2 days with a steroid inhaler & po prednisone. He was tested for coronavirus, but had not heard the results. Was urged to self quarrantine for 14 d* Ground glass opacity present on imaging of lung 05/30/2020 DX:Ground glass opacity pres ent on imaging of lung Interstitial pulmonary fibro sis (CMS/HCC) 05/30/2020 DX:Interstitial pulmonary fi brosis (HCC) Family History Medical History Relation Name Comments Heart attack Father Hypertension Father DANTE disease Mother Hypertension Mother DANTE disease Sister Relation Name Status Comments Father Maternal Grandfather Maternal Grandmother Mother Alive Paternal Grandfather Paternal Grandmother Sister Alive Social History Tobacco Use Types Packs/Day Years [...] on file Sexual Orientation Not on file Obstetrics History Last Filed Vital Signs Vital Sign Reading Time Taken Comments Blood Pressure 118/70 07/16/2024 10:22 AM EDT Pulse 74 07/16/2024 10:22 AM EDT Temperature - - Respiratory Rate - - Oxygen Saturation - - Inhaled Oxygen Concentration - - Weight 70.8 kg (156 lb) 07/16/2024 10:22 AM EDT Height 167.6 cm (5' 6 ) 07/16/2024 10:22 AM EDT Body Mass Index 25.18 07/16/2024 10:22 AM EDT Plan of Treatment Upcoming Encounters Date Type Department Care Team (Late st Contact Info) Description 02/04/2025 1:40 PM EDT Office Visit Pulmonolgy - [place] [address] [facility] [address] [place] [phone] Jennie Gonzalez NP [address] [place] [address] Health Maintenance Due Date Last Done Comments Zoster Vaccines (1 of 2) 1997 RSV Immunization Patients 60+ Years Old (1 - 1-dose 75+ series) 2022 Cholesterol Screening (Lipid Panel) 10/28/2022 Depression Screening 10/28/2022 Falls Risk Assessment 10/28/2022 Hepatitis C Screening 10/28/2022 Social Influencers of Health Screening 10/28/2022 Hypertension/CHF/CAD Annual BMP Blood Test 01/05/2023 01/05/2022 Pneumococcal Vaccine: 50+ Years (2 of 2 - PCV) 06/20/2024 06/20/2023, 07/31/2011, 11/05/1995 COVID-19 Vaccine ( - season) 2024 10/20/2021, 02/19/2021, 01/22/2021 Influenza Vaccine (#1) 2024 1, 11/04/2009, 09/01/2009, Additional history exists DTaP,Tdap,and Td Vaccines (4 - Td or Tdap) 01/15/2034 01/15/2024, 04/30/2008, 11/05/1994 Hepatitis B Vaccines Completed 12/06/2006, 01/11/2004, 12/04/2003 HIB Vaccines Aged Out No longer eligi ble based on patient's age to complete this topic HPV Vaccines Aged Out No longer eligi ble based on patient's age to complete this topic Hepatitis A Vaccines Aged Out No long er eligible based on patient's age to complete this topic IPV Vaccines Aged Out No longer eligi ble based on patient's age to complete this topic MMR Vaccines Aged Out No longer eligi ble based on patient's age to complete this topic Meningococcal ACWY Vaccine Aged Out N o longer eligible based on patient's age to complete this topic Meningococcal B Vacine Aged Out No lo nger eligible based on patient's age to complete this topic RSV Immunization Patients Under 20 months Aged Out No longer eligible based on patient's age to complete this topic Varicella Vaccines Aged Out No longer eligible based on patient's age to complete this topic Procedures Procedure Name Priority Date/Time Associated Diagnosis Comments ANNUAL BMP BLOOD TEST Routine 01/05/2022 from Last 3 Months or Most Recently Relevant to Health Maintenance Results * Annual BMP Blood Test (01/05/2022) Annual BMP Blood Test Abstracted Historical Provider HEALTH MAINTENANCE Final Result from Last 3 Months or Most Recently Relevant to Health Maintenance Insurance [facility] Care Teams Biometrics Head Relationship Specialty Start Date End Date Chica Harmon MD [address] [place] [address] [facility] - General 06/20/23
--- OUTSIDE RECORDS SUMMARY | 2025-01-20 23:19 | XMS_ITS ---
Author Name [facility] [place] Organization [facility] [place] Address [address] [place] [address] Care Team Providers Care Magician Helper Name Role Phone KAJAL RUCKER Primary Care [...] 19 MEDICAID TITLE 19 Nov 19, 2010 [id number] STEPHON BAUMANN [place] PATIENT Selected Encounter This section includes the information on record at [place] for the Encounter. Date/Time Encounter Type Encounter Description Reason Pro vider Source Jan 16, 2025 08:46 AM Outpatient Encounter ADMIN PAT ACTIVTIES (MASNONCT) IHE Encounter Template Text not used by MS Plan of Treatment: Future Appointments (+ 6 months) and Future Tests (+/- 45 days) The Plan of Treatment section includes future care activities for the patient from all [place] treatmentfacilities. This section includes future appointments and future orders which are active, pending or scheduled. Future Appointments This section includes appointments that were scheduled to occur 6 months from the date of the Encounter, up to a maximum of 20 appointments. The data comes from all [place] treatment facilities. Appointment Date/Time Appointment Type Appointme nt Facility Name Jan 28, 2025 12:30 PM [facility] Feb 04, 2025 01:00 PM AMBULATORY - NONE [facility] [place] [facility] Feb 27, 2025 09:45 AM AMBULATORY - NONE [facility] [place] [facility] Active, Pending, and Scheduled Orders This section includes a listing of several types of active, pending, and scheduled orders, including clinic medications orders, diagnostic test orders, procedure orders and consult orders; where the start date of the order is 45 days before the date of the Encounter or 45 days after the date of theEncounter. The data comes from all [place] treatment facilities. Test Date/Time Test Type Test Details Facility Name Dec 02, 2024 11:30 AM Consult Order [facility]-SLEEP STUDY Cons [facility] Dec 23, 2024 12:00 AM Laboratory - Chemi stry Order LIVER FUNCTION BLOOD (SST-SERUM) [facility] Dec 23, 2024 12:00 AM Laboratory - Chemi stry Order ELECTROLYTE PANEL BLOOD (SST-SERUM) [facility] Jan 20, 2025 01:59 PM Consult Order COMMUNITY CARE-PULMONARY [facility] Social History: Smoking Status (Most current) and Tobacco Use (All prior to encounter date) This section includes the most current, and the historical, smoking and tobacco- related health factors from the [place] facility where the Encounter took place. Current Smoking Status This section includes the most current smoking, or tobacco-related health factor, from the [place] facility where the Encounter took place. Date/Time Current Smoking Status Comment Facil ity Nov 29, 2023 12:43 PM VA-TOBACCO [facility] Tobacco Use History This section includes a history of the smoking, or tobacco-related health factors, that were collected on or before the date of the Encounter. The data comes from the [place] facility where the Encounter took place. Date/Time Smoking Status/Tobacco Use Comment F acility Nov 29, 2023 12:43 PM VA-TOBACCO QUIT 15 YRS OR MORE [facility] [place] [facility] Nov 10, 2022 01:28 PM VA-TOBACCO [facility] Nov 10, 2022 01:28 PM VA-TOBACCO QUIT 15 YRS OR MORE [facility] Advance Directives: All historical and current Section Date Range: From patient's date of to the date document was created. This section includes ALL of a patient's completed or amended [place] Advance and Rescinded Directives. The entries below indicate that a directive exists for the patient, but an actual copy is not included with this document. The data comes from all [place] facilities. Date Advance Directives Provider Source Dec 30, 2024 ADVANCE DIRECTIVE DISCUSSION JEFFREY BECKHAMFIELD Dec 09, 2010 ADVANCE DIRECTIVE CARINA AVERY Encounter Notes: All associated encounter notes This section contains the clinical notes associated to the Encounter. Date/Time Encounter Note(s) Provider Source Jan 16, 2025 08:46 AM ADMINISTRATIVE NOTE: LOCAL TITLE: CCC: SCHEDULING ADMINISTRATION STANDARD TITLE: ADMINISTRATIVE NOTE DATE OF NOTE: JAN 16, 2025@08:46:10 ENTRY DATE: JAN 16, 2025@08:46:10 AUTHOR: DOROTEO VALDIVIA EXP COSIGNER: URGENCY: STATUS: COMPLETED Patient Demographics Patient Name: LEONOR BAUMANN Patient Primary Phone: [phone] Patient Primary Address: [address] [place] [address] Patient : 1945 Patient Age: 79 Caller/Recipient Relation to Patient: Self Caller Name: LEONOR BAUMANN Administrative Administrative Note Reason: Medication Renewal [place] Medications Refill/Renewal Request: 1. HCTZ 25MG/LOSARTAN 100MG TAB () - to be mailed. IMPORTANT: This note was created by [facility] Contact [facility] staff. Please do not alert the staff member by adding them as a signer for future communications. Alerts are not monitored by this user. /ethan/ DOROTEO VIZCAINO 1 [facility] AMSA Signed: 01/16/2025 08:46 Receipt Acknowledged By: * AWAITING SIGNATURE * KAJAL RUCKER 01/16/2025 09:28 /ethan/ KRISTI BARRIOSN RN-BC REGISTERED NURSE DOROTEO VALDIVIA [facility]
--- OUTSIDE RECORDS SUMMARY | 2025-01-20 23:19 | XMS_ITS | Encounter Summary ---
Author Name [facility] [place] [facility] Address [address] [place] [id number] Care Team Providers Care Junior Loan Processor Name Role Phone DEVINRICHAR THOMASRALPHROGERIO Primary Care Provider Unavail able Insurance Providers: [...] 19 MEDICAID TITLE 19 Nov 19, 2010 [id number] STEPHON BAUMANN [place] PATIENT Selected Encounter This section includes the information on record at [place] for the Encounter. Date/Time Encounter Type Encounter Description Reason Provider Source Feb 27, 2024 09:30 AM OFFICE O/P EST MOD 30 MIN PRIMARY CARE/MEDICINE ICD-10-CM J30.2 Other seasonal allergic rhinitis CORAZON SIMPSON Danisha Encounter Template Text not used by [facility] Assessments - Encounter Diagnoses This section includes the primary and secondary diagnoses documented for the Encounter. Date/Time Primary/Secondary Diagnosis Diagnosis Name Provider Source Feb 27, 2024 02:45 PM PRIMARY Other seasonal allergic rhinitis CORAZON SIMPSON DAVID Feb 27, 2024 02:45 PM SECONDARY Other chronic allergic conjunctivitis CORAZON SIMPSON DAVID Plan of Treatment: Future Appointments (+ 6 months) and Future Tests (+/- 45 days) The Plan of Treatment section includes future care activities for the patient from all [place] [facility]. This section includes future appointments and future orders which are active, pending or scheduled. Future Appointments This section includes appointments that were scheduled to occur 6 months from the date of the Encounter, up to a maximum of 20 appointments. The data comes from all [place] treatment facilities. Appointment Date/Time Appointment Type Appointme nt Facility Name Mar 06, 2024 11:15 AM [facility]ULATORY - [facility]ICINE [facility] Mar 07, 2024 03:00 PM AMBULATORY - MEDICINE [facility] May 21, 2024 12:45 PM AMBULATORY - NONE [facility] [place] [facility] May 30, 2024 01:30 PM AM[facility]ULATORY - MEDICINE [facility] May 30, 2024 03:00 PM AMBULATORY - MEDICINE [facility] Jun 17, 2024 03:00 PM AMBULATORY - NONE [facility] [place] [facility] Jun 20, 2024 11:30 AM AMBULATORY - MEDICINE [facility] Jul 09, 2024 07:30 AM AMBULATORY - NONE [facility] [place] [facility] Jul 16, 2024 10:10 AM AMBULATORY - MEDICINE [facility] [place] [facility] Jul 17, 2024 09:10 AM AMBULATORY - MEDICINE [facility] [place] [facility] Aug 12, 2024 01:30 PM AMBULATORY - NONE [facility] [place] [facility] Aug 19, 2024 03:00 PM [facility]ATORY - MEDICINE [facility] Vital Signs: All taken on the encounter date This section contains inpatient and outpatient Vital Signs collected on the date of the Encounter. Date/Time Temperature Pulse Blood Pressure Respiratory Rate SP02 Pain Height Weight Body Mass Index Source Feb 27, 2024 10:06 AM 97.8 84 129/72 18 93 0 [place] Social History: Smoking Status (Most current) and Tobacco Use (All prior to encounter date) This section includes the most current, and the historical, smoking and tobacco- related health factors from the [place] facility where the Encounter took place. Current Smoking Status This section includes the most current smoking, or tobacco-related health factor, from the [place] facility where the Encounter took place. Date/Time Current Smoking Status Simon granda Nov 28, 2021 01:00 PM VA-TOBACCO FORMER USER [facility] Tobacco Use History This section includes a history of the smoking, or tobacco-related health factors, that were collected on or before the date of the Encounter. The data comes from the [place] facility where the Encounter took place. Date/Time Smoking Status/Tobacco Use Comment F acility Nov 28, 2021 01:00 PM VA-TOBACCO QUIT 15 YRS OR MORE [facility] Feb 28, 2019 11:48 AM VA-TOBACCO FORMER USER [facility] Feb 28, 2019 11:48 AM VA-TOBACCO QUIT 15 YRS OR MORE [facility] Jan 30, 2018 11:32 AM QUIT TOBACCO USE IN PAST YEAR [facility] April 02, 2017 10:33 AM QUIT TOBACCO USE IN PAST Y EAR reports quitting 4-5 months ago [facility] May 01, 2016 02:52 PM QUIT TOBACCO USE > 7 YEARS AGO Last smoked when I was 23 [facility] Dec 21, 2011 10:15 AM QUIT TOBACCO USE > 7 YEARS AGO Pt. quit when he was 23 years old. [facility] Dec 01, 2010 01:04 PM QUIT TOBACCO USE 1 -7 YEARS AGO [facility] Dec 01, 2010 01:04 PM QUIT TOBACCO USE IN PAST Y EAR Pt. quit smoking a few months ago!! [facility] Advance Directives: All historical and current Section Date Range: From patient's date of to the date document was created. This section includes ALL of a patient's completed or amended [place] Advance and Rescinded Directives. The entries below indicate that a directive exists for the patient, but an actual copy is not included with this document. The data comes from all [facility]. Date Advance Directives Provider Source Dec 30, 2024 ADVANCE DIRECTIVE DISCUSSION JEFFREY BECKHAM [facility] Dec 09, 2010 ADVANCE DIRECTIVE CARINA AVERY Encounter Notes: All associated encounter notes This section contains the clinical notes associated to the Encounter. Date/Time Encounter Note(s) Provider Source Feb 27, 2024 10:08 AM NURSE PRACTITIONER NOTE: LOCAL TITLE: NURSE PRACTIONER/SICK VISIT STANDARD TITLE: NURSE PRACTITIONER NOTE DATE OF NOTE: FEB 27, 2024@10:08 ENTRY DATE: FEB 27, 2024@10:08:47 AUTHOR: CORAZON SIMPSON EXP COSIGNER: URGENCY: STATUS: COMPLETED SICK CALL VISIT LEONOR BAUMANN is a 78 y/o DECLINED TO ANSWER MALE who presents to [facility] sick call with c/o Seasonal allergies, sneezing and itchy watery eyes. Has occasional wheezing, [place]. Has been taking cetirizine without relief, has also tried Benadryl. Reports multiple outdoor allergens and [place] 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 Followed by pulmonology. [facility] PCP: ======= ANATOLY CASTAÑEDA VITAL SIGNS: Blood Pressure: 129/72 (02/27/2024 10:06) Pain: 0 (02/27/2024 10:06) Patient Height: 66 in [167.6 cm] (05/23/2022 15:05) Patient Weight: 156.6 lb [71.03 kg] (11/29/2023 12:38) Pulse: 84 (02/27/2024 10:06) Respiration: 18 (02/27/2024 10:06) Temperature: 97.8 F [36.6 C] (02/27/2024 10:06) REVIEW OF SYSTEMS: see HPI PHYSICAL EXAMINATION: General: Well-appearing [place] in no obvious distress. Mental Status: Alert and oriented x4. Head: no frontal or maxillary sinus pain with palpation Eyes: PERRL. EOMI. Eyes are tearing. Conjunctivae clear. ENT: TM and ear canals normal bilaterally. Nares boggy, congested, clear rhinorrhea. Moist oral mucosa. Posterior pharynx unremarkable. Neck: Supple. No lymphadenopathy. Lungs: CTAB. Normal chest excursion. Eupneic respirations. CV: Heart tones S1, S2. RRR. No M/G/R. Psych: Normal mood and affect. Normal judgment. Cooperative with exam, follows commands. ASSESSMENT/PLAN: 1. allergic rhinitis - stop cetirizine and Benadryl. Trial loratadine daily. Adding Singulair daily as well for chronic symptoms. 2. allergic conjunctivitis - naphazoline eye drops PRN ordered. Avoid allergy triggers when able. MEDICATIONS reviewed with [place] FOLLOW UP: Return to clinic 3-5 days if no improvement in symptoms. UPCOMING APPOINTMENTS: No data available /ethan/ CANDACE ZABALA CERTIFIED NURSE PRACTITIONER Signed: 02/27/2024 14:45 CORAZON SIMPSON [facility]
--- OUTSIDE RECORDS SUMMARY | 2025-01-20 23:19 | XMS_ITS | Continuity of Care Document ---
Author Name [facility] Organization [facility] Care Team Providers Care Silver [place]are Assembler Name Role Phone [facility] Unavailable Unavailable Problems Combined list of problems from Department of Defense and Veterans Affairs facilities. It does not include entries that were removed or entered in error. 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 [facility] Allergic rhinitis Active Condition [place] Bwvrw-1-elzwdwbzzzq deficiency Active Condition May 23, 2022 Entered By: WILIAM CARDOZA Comment: Seen by [facility] liver clinic 12/22/21Jul 2021 Entered By: WILIAM CARDOZA Comment: Has a low protein level and genotype associated with severe deficiency (~35% of normal)May 23, 2022 Entered By: WILIAM CARDOZA Comment: From a liver perspective, management is supportive, avoid alcoholDec 2023 Entered By: CORAZON SIMPSON Comment: 08/12/24 HGB 18, AST 52, ALT 85 [facility] Benign prostatic hypertrophy without outflow obstruction Active Condition Oct 26, 2024 Entered By: CORAZON SIMPSON Comment: with [facility] DAVID Bradycardia Active Condition [place] Chronic periodontitis Active Condition [facility] Colonoscopy Screening Active Condition Jun 18, 2020 Entered By: WILIAM CARDOZA Comment: 12/31/14 - repeat 10 yrs [facility] Cortical senile cataract (ICD-9-CM 366.15/366.10) Active Condition [facility] Gastroesophageal reflux disease Active Condition [facility] Hyperlipidemia Active Condition Nov Entered By: DOMENICA DUNCAN Comment: no primary arterial vascular disease [facility] Hypertension Active Condition [facility] Lymphadenopathy * (ICD-9-CM 785.6) Active Condition [facility] Migraine Active Condition Oct 26 Entered By: CORAZON SIMPSON Comment: hx TBI [facility] Osteoarthritis of multiple joints Active Condition Oct 26, 2024 Entered By: CORAZON SIMPSON Comment: on CelebrexDec 2023 Entered By: CORAZON SIMPSON Comment: low back pain - MRI 11/27/22 [facility] Polycythemia Active Condition Oct 07, 2018 Entered By: RAVEN HU Comment: 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 [facility] Pulmonary fibrosis Active Condition A ug 2021 Entered By: TELLY RUBIO Comment: Request Surveillance CT of Thorax; h/o Pulmo FibrosisAug 2021 Entered By: TELLY RUBIO Comment: Incidental Finding on CT of ABD/Pelvis Done ED JUN 30;Jul 06, 2022 Entered By: TELLY RUBIO Comment: CT Done to Eval ABD and Flank Pain (was a stone)Jul 06, 2022 Entered By: TELLY RUBIO Comment: Incidental Baslilar Fibrosis Bilat Lungs Noted;Jul 06, 2022 Entered By: TELLY RUBIO Comment: Is Progression of ILD; Get Full Lung CT in AUG 10Sep 2021 Entered By: TELLY RUBIO Comment: CT, Throax AUG 10: +Progression Interstitial Lung DiseaseDec 2023 Entered By: CORAZON SIMPSON Comment: hx [place] Breeders Disease [facility] Recurrent sinusitis Active Condition Feb 11, 2021 Entered By: ANGELA GARCIA Comment: followed of [facility] 2023 Entered By: CORAZON SIMPSON Comment: 01/12/23 CT sinuses [facility] Seborrheic dermatitis of scalp Active Condition [facility] Abnormal Liver Function Tests (ICD-9-CM 794.8) Inactive Condition 06/18/2020 Mar 19, 201 3 Entered By: TELLY RUBIO Comment: US, ABD JAN 29: Unremarkable Liver [place] Atypical Chest Pain Inactive Condition 03/28/2019 Dec 01, 2010 Entered By: CRISTINA MORRELL RA Comment: 09-28: [facility]: CP r/o AL [facility] Carbuncle and furuncle of hand Inactive Condition 08/23/2015 [facility] Inactive Condition 11/20/2013 [place] Dizziness and giddiness Inactive Condition 03/28/2019 [place] FAM HX-[facility] DIS Inactive Condition 11/20/2013 Dec 01, 2010 Entered By: CRISTINA MORRELL RA Comment: CAD DM [facility] Gross Hematuria Inactive Condition 08/23/2015 [facility] Impaired Fasting Glucose (ICD-9-CM 790.21) Inactive Condition 11/20/2013 [place] Itching (SNOMED CT [id number]) Inactive Condition 10/26/2024 Jun 23, 2022 Entered By: ANGELA GARCIA Comment: Blood panel testing May 2022 [facility] Kidney stone Inactive Condition 10/26/2024Jun Entered By: TELLY RUBIO Comment: Seen ED JUL 10: Dx of Non-Obstruc Renal Stone Right SideAug 2021 Entered By: TELLY RUBIO Comment: Self-Resolved; Pt. Sees No Need to Consult [facility] at this Time [place] Knee: arthralgia Inactive Condition 03/28/2019 Ja n 2010 Entered By: CRISTINA MORRELL RA Comment: Right Knee Pain [facility] Low Back Pain Inactive Condition 06/18/2020 [facility] Microscopic Hematuria Inactive Condition 06/18/2020 [place] Microscopic Hematuria (ICD-9-CM 599.72) Inactive Condition 02/16/2012 [facility] Mother: yfn; [id number] Inactive Condition 11/20/2013 [place] Obesity * (ICD-9-CM 278.00) Inactive Condition 02/16/2012 [place] Other Malaise and Fatigue (ICD-9-CM 780.79) Inactive Condition 06/18/2020 [place] PCP: Gracia Sandoval MD: [facility] Inactive Condition 11/20/2013 [place] Tinea * (ICD-9-CM 110.9) Inactive Condition 06/18/2020 [place] Diagnosis: ICD-10-CM Z71.9 Counseling, unspecified Active Diagnosis [place] Diagnosis: ICD-10-CM K08.9 Disorder of teeth and supporting structures, unspecified Active Diagnosis [facility] Diagnosis: ICD-10-CM M54.50 Low back pain, unspecified Active Diagnosis [facility] Diagnosis: ICD-10-CM Z71.89 Other specified counseling Active Diagnosis [facility] Diagnosis: ICD-10-CM H57.12 Ocular pain, left eye Active Diagnosis [place] Diagnosis: ICD-10-CM K03.6 Deposits [accretions] on teeth Active Diagnosis [facility] Diagnosis: ICD-10-CM I10 Essential (primary) hypertension Active Diagnosis [place] Diagnosis: ICD-10-CM Z23 Encounter for immunization Active Diagnosis [place] Diagnosis: ICD-10-CM K08.409 Partial loss of teeth, unspecified cause, unspecified class Active Diagnosis [facility] Diagnosis: ICD-10-CM H61.23 Impacted cerumen, bilateral Active Diagnosis [place] Diagnosis: ICD-10-CM R05.9 Cough, unspecified Active Diagnosis [facility] Diagnosis: ICD-10-CM J30.2 Other seasonal allergic rhinitis Active Diagnosis [facility] [place] Diagnosis: ICD-10-CM R06.7 Sneezing Active Diagnosis [place] Diagnosis: ICD-10-CM Q66.50 Congenital pes planus, unspecified foot Active Diagnosis [facility] Diagnosis: ICD-10-CM S01.01XS Laceration without foreign body of scalp, sequela Active Diagnosis [facility] Diagnosis: ICD-10-CM R68.89 Other general symptoms and signs Active Diagnosis [facility] Diagnosis: ICD-10-CM R23.2 [place] Active Diagnosis [place] Diagnosis: ICD-10-CM L71.8 Other rosacea Active Diagnosis [facility] Diagnosis: ICD-10-CM H02.846 Edema of left eye, unspecified eyelid Active Diagnosis [facility] Diagnosis: ICD-10-CM K76.0 Fatty (change of) liver, not elsewhere classified Active Diagnosis [facility] Diagnosis: ICD-10-CM R35.0 Frequency of micturition Active Diagnosis [place] Medications Combined list of outpatient medications from Department of Defense and Veterans Affairs facilities.Medications provided include 1) outpatient medications from the last 15 months, and 2) patient-reported medications. Medication Details Route Status Patient Instructions Prescription Expires Prescription Number Last Dispense Date Ordering Provider Order Date Order Qty Source ALBUTEROL 90MCG/ACTUA T (CFC-F) INHL,ORAL,8 .5GM DOSE COUNTER INHALE 2 PUFFS BY MOUTH EVERY 4 HOURS NEEDED COUGH,WH EEZING OR SHORTNES S OF BREATH RESPIR ATORY (INHAL ATION) ACTIVE 08/20/2025 [id number] ADRIANA CASTAÑEDA RMEN F 2023 3 [place] ALBUTEROL 90MCG/ACTUA T (CFC-F) INHL,ORAL,8 .5GM DOSE COUNTER INHALE 2 PUFFS BY MOUTH EVERY 4 HOURS NEEDED COUGH,WH EEZING OR SHORTNES S OF BREATH RESPIR ATORY (INHAL ATION) DISCONT INUED 06/20/2024 [id number] 4 NATHAN OVA,DENIZ MARKY 2022 3 [place] AMOXICILLIN TRIHYDRATE 875MG/CLAVU LANATE K 125MG TAB TAKE 1 TABLET BY MOUTH TWICE DAILY FOR 5 DAYS FOR INFECTIO N ORAL DISCONT INUED BY LORENA R 03/29/2024 [id number] 4 OCTAVIO DE LA O MMABen 2023 10 [place] ASPIRIN 81MG TAB,EC TAKE ONE TABLET BY MOUTH ONCE DAILY TO PREVENT STROKE/H EART ATTACK ORAL 11/25/2024 [id number] 4 DARRON MCFARLANE 2023 30 [place] ATORVASTATI N CA 80MG TAB TAKE ONE-HALF TABLET BY MOUTH ONCE DAILY AT BEDTIME FOR CHOLESTE ROL ORAL ACTIVE 05/31/2025 [id number] 5 ADRIANA CASTAÑEDA F 2023 45 [place] ATORVASTATI N CA 80MG TAB TAKE ONE-HALF TABLET BY MOUTH ONCE DAILY AT BEDTIME FOR CHOLESTE ROL ORAL DISCONT INUED 08/06/2024 [id number] 4 ADRIANA CASTAÑEDA F 2023 45 [place] ATORVASTATI N CA 80MG TAB TAKE ONE-HALF TABLET BY MOUTH ONCE DAILY AT BEDTIME FOR CHOLESTE ROL ORAL DISCONT INUED 04/03/2024 [id number] 4 IDALIA YOU 2022 45 [place] AZITHROMYCI N 250MG TAB TAKE TWO TABLETS BY MOUTH ONCE DAILY FOR 5 DAYS ORAL DISCONT INUED BY PROVIDE R 03/29/2024 [id number] 4 OCTAVIO DE LA O MMABen 2023 10 [place] CARBAMIDE PEROXIDE 6.5%/GLYCER IN SOLN,OTIC INSTILL 5 DROPS INTO THE AFFECTED EAR(S) TWICE DAILY FOR EAR WAX BLOCKAGE AURICU LAR (OTIC) 2024 [id number] 4 ADRIANA CSATAÑEDA RMMIGUEL ÁNGEL F 2023 15 [place] CEFUROXIME AXETIL 500MG TAB TAKE ONE TABLET BY MOUTH TWICE DAILY ORAL 11/22/2023 [id number] BLOCK,YOT AM 2022 10 [place] CELECOXIB 200MG CAP TAKE ONE CAPSULE BY MOUTH TWICE DAILY FOR ARTHRITI S ORAL ACTIVE 12/02/2025 [id number] 5 Boris SIMPSON 2024 180 [place] CELECOXIB 200MG CAP TAKE ONE CAPSULE BY MOUTH TWICE DAILY FOR ARTHRITI S ORAL DISCONT INUED 11/29/2024 [id number] 4 IDALIA YOU 2023 60 [place] CELECOXIB 200MG CAP TAKE ONE CAPSULE BY MOUTH TWICE DAILY FOR ARTHRITI S ORAL DISCONT INUED (EDIT) 11/28/2024 [id number] 4 IDALIA YOU 2023 60 [place] CETIRIZINE HCL 10MG TAB TAKE ONE TABLET BY MOUTH ONCE DAILY FOR ALLERGIE S ORAL DISCONT INUED BY PROVIDE R 05/31/2025 [id number] 4 ADRIANA CASTAÑEDA RMMIGUEL ÁNGEL F 2023 90 [place] CETIRIZINE HCL 10MG TAB TAKE ONE TABLET BY MOUTH ONCE DAILY ORAL DISCONT INUED BY PROVIDE R 06/20/2024 [id number] 4 DENIZ GUTIERREZ MARKY 2022 90 [place] COAL TAR 0.5% SHAMPOO SHAMPOO SUFFICIE NT AMOUNT TOPICALL Y ONCE DAILY NEEDED FOR SEBORRHE IC DERMATIT IS TOPICA L ACTIVE 05/31/2025 [id number] 4 ADRIANA CASTAÑEDA RMEN F 2023 255 [place] DEXTROMETHO RPHAN HBR 10MG/GUAIFE NESIN 100MG/5ML (AF & SF) LIQUID TAKE 5 MLS BY MOUTH EVERY 4 HOURS NEEDED FOR 14 DAYS FOR COUGH ORAL DISCONT INUED BY PROVIDE R 04/09/2024 [id number] 4 ERIC AYALA MAN 2023 120 [place] DICLOFENAC NA 1% GEL,TOP APPLY 4 GRAMS TOPICALL Y FOUR TIMES A DAY DIRECTED FOR JOINT PAIN - USE DOSING CARD PROVIDED IN BOX TOPICA L 12/26/2024 [id number] 5 AV MONROE 2024 200 [facility] DOXYCYCLINE HYCLATE 100MG TAB TAKE ONE TABLET BY MOUTH TWICE DAILY ORAL 11/22/2023 [id number] 3 VENKATESH TRAN AM 2022 10 [place] FINASTERIDE 5MG TAB TAKE ONE TABLET BY MOUTH ONCE DAILY DIRECTED BY PROVIDER ORAL ACTIVE 12/02/2025 [id number] 5 Boris SIMPSON 2024 90 [place] FINASTERIDE 5MG TAB TAKE ONE TABLET BY MOUTH ONCE DAILY DIRECTED BY PROVIDER ORAL DISCONT INUED 08/01/2025 [id number] 4 TREVON RHODES RY D 2023 90 [place] FLUTICASONE 250MCG/SALM ETEROL 50MCG INHL,ORAL,D ISKUS,60 INHALE 1 PUFF BY MOUTH TWICE DAILY - RINSE MOUTH AFTER USE RESPIR ATORY (INHAL ATION) ACTIVE 07/17/2025 [id number] 4 DENIZ GUTIERREZ MARKY 2023 3 [place] FLUTICASONE 250MCG/SALM ETEROL 50MCG INHL,ORAL,D ISKUS,60 INHALE 1 PUFF BY MOUTH TWICE DAILY - RINSE MOUTH AFTER USE RESPIR ATORY (INHAL ATION) 06/20/2024 [id number] 4 DENIZ GUTIERREZ 2022 3 [place] FLUTICASONE PROPIONATE 50MCG/SPRAY SOLN,NASAL, 16GM INSTILL 1 SPRAY INTO EACH NOSTRIL ONCE DAILY FOR NASAL IRRITATI ON/INFLA MMATION NASAL ACTIVE 07/17/2025 [id number] 4 NATHAN GILMORE,DENIZ MARKY 2023 3 [place] FLUTICASONE PROPIONATE 50MCG/SPRAY SOLN,NASAL, 16GM INSTILL 1 SPRAY INTO EACH NOSTRIL ONCE DAILY PLEASE SPRAY 2 SPRAYS IN EACH NOSTRIL DAILY FOR 3-4 WEEKS , THEN DECREASE TO 1 SPRAY DAILY THEREAFT ER NASAL 06/20/2024 [id number] 4 DENIZ GUTIERREZ MARKY 2022 3 [place] HYDROCHLORO THIAZIDE 25MG/LOSART AN POTASSIUM 100MG TAB TAKE 1 TABLET BY MOUTH ONCE DAILY ORAL ACTIVE 05/31/2025 [id number] 4 ADRIANA CASTAÑEDA RMMIGUEL ÁNGEL F 2023 90 [place] HYDROCHLORO THIAZIDE 25MG/LOSART AN POTASSIUM 100MG TAB TAKE 1 TABLET BY MOUTH ONCE DAILY ORAL DISCONT INUED 02/11/2025 [id number] 4 ADRIANA CASTAÑEDA RMMIGUEL ÁNGEL F 2023 60 [place] HYDROCHLORO THIAZIDE 25MG/LOSART AN POTASSIUM 100MG TAB TAKE 1 TABLET BY MOUTH ONCE DAILY ORAL DISCONT INUED 11/29/2024 [id number] 4 IDALIA YOU 2023 60 [place] HYDROPHILIC (EQV EUCERIN) CREAM,TOP APPLY A SMALL AMOUNT TOPICALL Y ONCE DAILY TO DRY,CRAC KED SKIN ON FEET TOPICA L ACTIVE 01/24/2025 [id number] 4 KELLIE MURDOKC D 2023 454 [facility] LIDOCAINE 5% PATCH APPLY 1 PATCH TOPICALL Y ONCE DAILY NEEDED FOR NERVE PAIN (LEAVE PATCH ON FOR 12 HOURS, THEN REMOVE PATCH) TOPICA L 12/26/2024 [id number] 5 AV MONROE 2024 30 [facility] LORATADINE 10MG TAB TAKE ONE TABLET BY MOUTH ONCE DAILY FOR ALLERGY ORAL ACTIVE 07/04/2025 [id number] 5 ADRIANA CASTAÑEDA RMMIGUEL ÁNGEL F 2023 90 [place] LORATADINE 10MG TAB TAKE ONE TABLET BY MOUTH ONCE DAILY FOR ALLERGY ORAL DISCONT INUED BY LORENA R 02/27/2025 [id number] 4 Boris SIMPSON 2023 90 [place] LOSARTAN POTASSIUM 100MG TAB TAKE ONE TABLET BY MOUTH ONCE DAILY FOR BLOOD PRESSURE /HEART ORAL DISCONT INUED 09/17/2024 [id number] 4 IDALIA YOU 2022 90 [facility] MECLIZINE HCL 25MG TAB TAKE ONE TABLET BY MOUTH TWICE DAILY NEEDED FOR VERTIGO ORAL 09/18/2024 [id number] 4 ADRIANA CASTAÑEDA RMEN F 2023 30 [place] MINERAL OIL,LIGHT/P ETROLATUM (PF) OINT,OPH APPLY SMALL AMOUNT INTO EACH EYE AT BEDTIME NEEDED OPHTHA LMIC 08/14/2024 [id number] 4 Leodan MCCRAY ICHELE 2022 3 [facility] MIRABEGRON 50MG TAB,SA TAKE ONE TABLET BY MOUTH ONCE DAILY ORAL ACTIVE 07/08/2025 [id number] 4 TREVON RHODES D 2023 90 [place] MIRABEGRON 50MG TAB,SA TAKE ONE TABLET BY MOUTH ONCE DAILY ORAL DISCONT INUED 11/08/2024 [id number] 4 TREVON RHODES RY D 2022 90 [place] MONTELUKAST NA 10MG TAB TAKE ONE TABLET BY MOUTH ONCE DAILY FOR ASTHMA ORAL ACTIVE 02/27/2025 [id number] 4 Boris SIMPSON 2023 90 [place] NAPHAZOLINE HCL 0.012% SOLN,OPH INSTILL 1 DROP INTO EACH EYE TWICE DAILY NEEDED FOR EYE IRRITATI ON OPHTHA LMIC ACTIVE 02/27/2025 [id number] 4 Boris SIMPSON 2023 45 [place] OSELTAMIVIR PO4 75MG CAP TAKE ONE CAPSULE BY MOUTH TWICE DAILY FOR 3 DAYS ORAL DISCONT INUED BY PROVIDE R 04/09/2024 [id number] 4 ERIC AYALA MAN 2023 6 [place] PREDNISONE 20MG TAB TAKE TWO TABLETS BY MOUTH ONCE DAILY ORAL DISCONT INUED 04/10/2024 [id number] 4 JANENEMARYSOLY C 2023 8 [place] TRIAMCINOLO NE ACETONIDE 0.1% CREAM,TOP APPLY A THIN LAYER TOPICALL Y TWICE DAILY NEEDED TOPICA L 11/29/2024 [id number] 4 IDALIA YOU 2023 454 [place] Allergies, Adverse Reactions, Alerts Combined list of allergies from Department of Defense and Veterans Affairs facilities. It does not include entries that were removed or entered in error. Substance Category Reaction Severity Reaction type Status Date Reported Comments Source ANTIVERT Propensity to adverse reactions to drug (finding) Nausea and vomiting active 9 [facility] POLLEN Propensity to adverse reaction (finding) Sneezing active 1 [facility] Immunizations Combined list of available immunizations from the Department of Defense and Veterans Affairs facilities. Immunization Series Date Given Administered By Site Reaction Lot Number CVX Code Drug Aircraft Stress Analyst Status Comments Source COVID-19 (MODERNA), MRNA, LNP-S, PF, 50 MCG/0.5 ML (AGES 12+ YEARS) 2023 MILTON WREN RIGHT DELTO ID [id number] 312 complet ed [place] INFLUENZA, HIGH-DOSE, TRIVALENT, PF 2023 MIL[place] WREN LEFT DELTO ID [id number] A 135 complet ed [place] COVID-19 (MODERNA), MRNA, LNP-S, PF, 50 MCG/0.5 ML (AGES 12+ YEARS) 2023 YANIRA VANEGAS ABBEY RIGHT DELTO ID [id number] 312 complet ed [place] INFLUENZA, HIGH-DOSE, QUADRIVALENT 2022 MACEY PEREA COLE RIGHT DELTO ID [id number] A 197 complet ed [place] COVID-19 (MODERNA), MRNA, LNP-S, BIVALENT BOOSTER, PF, 50 MCG/0.5 ML OR 25MCG/0.25 ML DOSE 1 2022 BG LAZAR RIGHT DELTO ID [id number] 229 complet ed [place] COVID-19 (MODERNA), MRNA, LNP-S, BIVALENT BOOSTER, PF, 50 MCG/0.5 ML OR 25MCG/0.25 ML DOSE 1 2021 229 complet ed MOD; [id number]; 3 [place] INFLUENZA, UNSPECIFIED FORMULATION 2021 88 complet ed [facility] COVID-19 (MODERNA), MRNA, LNP-S, PF, 100 MCG/0.5ML DOSE OR 50 MCG/0.25ML DOSE 4 2021 207 complet ed MOD; [id number]; 2 [facility] [place] COVID-19 (MODERNA), MRNA, LNP-S, PF, 100 MCG OR 50 MCG DOSE 3 2020 207 complet ed MOD; [id number]; 2 [facility] [place] INFLUENZA VACCINE, QUADRIVALENT, ADJUVANTED 2020 205 complet ed [place] ZOSTER RECOMBINANT 2 2020 187 complet ed [place] ZOSTER RECOMBINANT 1 2020 187 complet ed [place] COVID-19 (MODERNA), MRNA, LNP-S, PF, 100 MCG/0.5 ML DOSE 2 2020 207 complet ed MOD; [id number]; 1 [place] COVID-19 (MODERNA), MRNA, LNP-S, PF, 100 MCG/0.5 ML DOSE 1 2020 207 complet ed MOD; [id number]; 1 [place] INFLUENZA, INJECTABLE, QUADRIVALENT, PRESERVATIVE FREE 2019 150 complet ed [place] INFLUENZA, INJECTABLE, QUADRIVALENT, PRESERVATIVE FREE 2018 150 complet ed Site: Left Deltoid [place] INFLUENZA, SEASONAL, INJECTABLE 2017 141 complet ed [place] PNEUMOCOCCAL POLYSACCHARID E [id number] 2017 33 complet ed [place] FLU,3 YRS (HISTORICAL) 2016 88 complet ed Site: Right Deltoid [place] PNEUMOCOCCAL CONJUGATE PCV 13 2016 133 complet ed [place] FLU,3 YRS (HISTORICAL) 2015 88 complet ed Site: Right Deltoid [place] FLU,3 YRS (HISTORICAL) 2014 88 complet ed Site: Left Deltoid [place] DTAP, UNSPECIFIED FORMULATION 2014 107 complet ed [place] FLU,3 YRS (HISTORICAL) 2013 88 complet ed Site: Left Deltoid [place] FLU,3 YRS (HISTORICAL) 2012 88 complet ed Site: Right Deltoid [place] ZOSTER LIVE 2012 121 complet ed [place] FLU,3 YRS (HISTORICAL) 2011 88 complet ed Pt. was vaccinate d at [facility] HistoryFile [employer] [facility] DTAP, UNSPECIFIED FORMULATION 2011 107 complet ed Site: Right Deltoid [place] FLU,3 YRS (HISTORICAL) 2010 88 complet ed Site: Left Deltoid [place] PNEUMOCOCCAL, UNSPECIFIED FORMULATION 2010 109 complet ed Site: Right Deltoid [place] PNEUMOCOCCAL, UNSPECIFIED FORMULATION 2010 109 complet ed pt does not remember getting this vaccine, [place] form [place] [facility]File [employer] [place] [employer] [facility] FLU,3 YRS (HISTORICAL) 2009 88 complet ed Pt. was admittted to [facility] he got his vacine!! [place] [facility]FileR [employer] [facility] Results Combined list of recent chemistry, hematology and other laboratory results from Department of Defense and Veterans Affairs, ranging from 15 months to all on record, depending upon the facility. Order Name Results Value Reference Range Date Interpretation Specimen Comments Source LIPID PANEL FASTING CHOLESTERO L [MASS/VOLU ME] IN SERUM OR PLASMA 119 mg/dL 08/12 Specimen Type: SERUM No comment entered. Ordering Provider: AVERY CASTAÑEDA Report Released Date/Time: Aug 07, 2024 08:33 AM Reporting Lab: [facility] [address] [address] Performing Lab: [facility] [address] [place] LIPID PANEL FASTING TRIGLYCERI DE [MASS/VOLU ME] IN SERUM OR PLASMA 62 mg/dL 0 - 150 08/12 Specimen Type: SERUM No comment entered. Ordering Provider: AVERY CASTAÑEDA Report Released Date/Time: Aug 07, 2024 08:33 AM Reporting Lab: [facility] [address] Performing Lab: [facility] [address] [place] LIPID PANEL FASTING CHOLESTERO L IN LDL [MASS/VOLU ME] IN SERUM OR PLASMA BY CALCCHRISTIANE N 67 mg/dL 0 - 129 08/12 Specimen Type: SERUM No comment entered. Ordering Provider: AVERY CASTAÑEDA Report Released Date/Time: Aug 07, 2024 08:33 AM Reporting Lab: [facility] [address] [address] Performing Lab: [facility] [address] [address] [place] LIPID PANEL FASTING CHOLESTERO L.TOTAL/CH OLESTEROL IN HDL [MASS RATIO] IN SERUM OR PLASMA 3.0 08/12 Specimen Type: SERUM No comment entered. Ordering Provider: AVERY CASTAÑEDA Report Released Date/Time: Aug 07, 2024 08:33 AM Reporting Lab: [facility] [address] Performing Lab: [facility] [address] [facility] [address] [place] LIPID PANEL FASTING CHOLESTERO L IN HDL [MASS/VOLU ME] IN SERUM OR PLASMA 40 mg/dL 40 - 60 08/12 Specimen Type: SERUM No comment entered. Ordering Provider: AVERY CASTAÑEDA Report Released Date/Time: Aug 07, 2024 08:33 AM Reporting Lab: [facility] [address] [address] Performing Lab: [facility] [address] [address] [place] TSH THYROTROPI N [UNITS/VOL UME] IN SERUM OR PLASMA 2.07 u[IU]/mL 0.35 - 5.00 08/12 Specimen Type: SERUM No comment entered. Ordering Provider: AVERY CASTAÑEDA Report Released Date/Time: Aug 07, 2024 08:33 AM Reporting Lab: [facility] [address] Performing Lab: [facility] [address] [place] LIVER FUNCTION PROTEIN [MASS/VOLU ME] IN SERUM OR PLASMA 8.1 g/dL 6.0 - 8.3 08/12 Specimen Type: SERUM Comment: Hemolysis present analysis cannot be performed. Hemolysis present may falsly elevate Potassium Total and Direct Bili, Iron, AST, %Fe. BILIRUBIN, TOTAL reported incorrectly as 1.2 by [[id number] 31]. Changed to comment on Aug 12, 2024@11:39 by [[id number] 31]. BILIRUBIN, DIRECT reported incorrectly as 0.4 by [[id number] 31]. Changed to comment on Aug 12, 2024@11:39 by [[id number] 31]. Ordering Provider: AVERY CASTAÑEDA Report Released Date/Time: Aug 07, 2024 08:33 AM Reporting Lab: [facility] [address] [address] Performing Lab: [address] [address] [facility] LIVER FUNCTION ALBUMIN [MASS/VOLU ME] IN SERUM OR PLASMA 4.4 g/dL 3.5 - 5.0 08/12 Specimen Type: SERUM Comment: Hemolysis present analysis cannot be performed. Hemolysis present may falsly elevate Potassium Total and Direct Bili, Iron, AST, %Fe. BILIRUBIN, TOTAL reported incorrectly as 1.2 by [[id number] 31]. Changed to comment on Aug 12, 2024@11:39 by [[id number]]. BILIRUBIN, DIRECT reported incorrectly as 0.4 by [[id number]]. Changed to comment on Aug 12, 2024@11:39 by [[id number] 31]. Ordering Provider: AVERY CASTAÑEDA Report Released Date/Time: Aug 07, 2024 08:33 AM Reporting Lab: [address] [id number] Performing Lab: [address] [id number] [facility] LIVER FUNCTION ALKALINE PHOSPHATAS E [ENZYMATIC ACTIVITY/V OLUME] IN SERUM OR PLASMA 68 U/L 40 - 150 08/12 Specimen Type: SERUM Comment: Hemolysis present analysis cannot be performed. Hemolysis present may falsly elevate Potassium Total and Direct Bili, Iron, AST, %Fe. BILIRUBIN, TOTAL reported incorrectly as 1.2 by [[id number] 31]. Changed to comment on Aug 12, 2024@11:39 by [[id number] 31]. BILIRUBIN, DIRECT reported incorrectly as 0.4 by [[id number] 31]. Changed to comment on Aug 12, 2024@11:39 by [[id number] 31]. Ordering Provider: AVERY CASTAÑEDA Report Released Date/Time: Aug 07, 2024 08:33 AM Reporting Lab: [address] [address] Performing Lab: [address] [address] [facility] LIVER FUNCTION ASPARTATE AMINOTRANS FERASE [ENZYMATIC ACTIVITY/V OLUME] IN SERUM OR PLASMA 52 U/L 5 - 34 08/12 H Specimen Type: SERUM Comment: Hemolysis present analysis cannot be performed. Hemolysis present may falsly elevate Potassium Total and Direct Bili, Iron, AST, %Fe. BILIRUBIN, TOTAL reported incorrectly as 1.2 by [[id number] 31]. Changed to comment on Aug 12, 2024@11:39 by [[id number] 31]. BILIRUBIN, DIRECT reported incorrectly as 0.4 by [[id number] 31]. Changed to comment on Aug 12, 2024@11:39 by [[id number] 31]. Ordering Provider: AVERY CASTAÑEDA Report Released Date/Time: Aug 07, 2024 08:33 AM Reporting Lab: [address] [address] Performing Lab: [address] [address] [facility] LIVER FUNCTION ALANINE AMINOTRANS FERASE [ENZYMATIC ACTIVITY/V OLUME] IN SERUM OR PLASMA 85 U/L 08/12 H Specimen Type: SERUM Comment: Hemolysis present analysis cannot be performed. Hemolysis present may falsly elevate Potassium Total and Direct Bili, Iron, AST, %Fe. BILIRUBIN, TOTAL reported incorrectly as 1.2 by [[id number] 31]. Changed to comment on Aug 12, 2024@11:39 by [[id number] 31]. BILIRUBIN, DIRECT reported incorrectly as 0.4 by [[id number] 31]. Changed to comment on Aug 12, 2024@11:39 by [[id number] 31]. Ordering Provider: AVERY CASTAÑEDA Report Released Date/Time: Aug 07, 2024 08:33 AM Reporting Lab: [address] [address] Performing Lab: [address] [address] [facility] LIVER FUNCTION BILIRUBIN. TOTAL [MASS/VOLU ME] IN SERUM OR PLASMA commentm g/dL 0.2 - 1.2 08/12 Specimen Type: SERUM Comment: Hemolysis present analysis cannot be performed. Hemolysis present may falsly elevate Potassium Total and Direct Bili, Iron, AST, %Fe. BILIRUBIN, TOTAL reported incorrectly as 1.2 by [[id number] 31]. Changed to comment on Aug 12, 2024@11:39 by [[id number] 31]. BILIRUBIN, DIRECT reported incorrectly as 0.4 by [[id number] 31]. Changed to comment on Aug 12, 2024@11:39 by [[id number] 31]. Ordering Provider: AVERY CASTAÑEDA Report Released Date/Time: Aug 07, 2024 08:33 AM Reporting Lab: [address] [address] Performing Lab: [address] [address] [place] L[place] FUNCTION BILIRUBIN. DIRECT [MASS/VOLU ME] IN SERUM OR PLASMA commentm g/dL 0 - 0.5 08/12 Specimen Type: SERUM Comment: Hemolysis present analysis cannot be performed. Hemolysis present may falsly elevate Potassium Total and Direct Bili, Iron, AST, %Fe. BILIRUBIN, TOTAL reported incorrectly as 1.2 by [[id number] 31]. Changed to comment on Aug 12, 2024@11:39 by [[id number] 31]. BILIRUBIN, DIRECT reported incorrectly as 0.4 by [[id number] 31]. Changed to comment on Aug 12, 2024@11:39 by [[id number] 31]. Ordering Provider: AVERY CASTAÑEDA Report Released Date/Time: Aug 07, 2024 08:33 AM Reporting Lab: [address] [address] Performing Lab: [address] [address] [place] BASIC METABOLI C PANEL (fasting ) UREA NITROGEN [MASS/VOLU ME] IN SERUM OR PLASMA 12 mg/dL 7 - 25 08/12 Specimen Type: SERUM No comment entered. Ordering Provider: AVERY CASTAÑEDA Report Released Date/Time: Aug 07, 2024 08:33 AM Reporting [facility]: [facility] [address] [facility] [address] Performing Lab: [facility] [address] [facility] [address] [place] BASIC METABOLI C PANEL (fasting ) GLUCOSE [MASS/VOLU ME] IN SERUM OR PLASMA 107 mg/dL 65 - 100 08/12 H Specimen Type: SERUM No comment entered. Ordering Provider: AVERY CASTAÑEDA Report Released Date/Time: Aug 07, 2024 08:33 AM Reporting Lab: [address] [address] Performing Lab: [facility] [address] [address] [place] BASIC METABOLI C PANEL (fasting ) SODIUM [MOLES/VOL UME] IN SERUM OR PLASMA 132 mmol/L 135 - 145 08/12 L Specimen Type: SERUM No comment entered. Ordering Provider: AVERY CASTAÑEDA Report Released Date/Time: Aug 07, 2024 08:33 AM Reporting Lab: [address] [address] Performing Lab: [facility] [address] [address] [place] BASIC METABOLI C PANEL (fasting ) POTASSIUM [MOLES/VOL UME] IN SERUM OR PLASMA 4.3 mmol/L 3.5 - 5.0 08/12 Specimen Type: SERUM No comment entered. Ordering Provider: AVERY CASTAÑEDA Report Released Date/Time: Aug 07, 2024 08:33 AM Reporting Lab: [facility] [address] [address] Performing Lab: [facility] [address] [address] [place] BASIC METABOLI C PANEL (fasting ) CHLORIDE [MOLES/VOL UME] IN SERUM OR PLASMA 97 mmol/L 100 - 110 08/12 L Specimen Type: SERUM No comment entered. Ordering Provider: AVERY CASTAÑEDA Report Released Date/Time: Aug 07, 2024 08:33 AM Reporting Lab: [facility] [address] [address] Performing Lab: [facility] [address] [address] [place] BASIC METABOLI C PANEL (fasting ) CARBON DIOXIDE, TOTAL [MOLES/VOL UME] IN SERUM OR PLASMA 27 meq/L 20 - 30 08/12 Specimen Type: SERUM No comment entered. Ordering Provider: AVERY CASTAÑEDA Report Released Date/Time: Aug 07, 2024 08:33 AM Reporting Lab: [facility] [address] [address] Performing Lab: [facility] [address] [address] [place] BASIC METABOLI C PANEL (fasting ) CREATININE [MASS/VOLU ME] IN SERUM OR PLASMA 0.84 mg/dL 0.50 - 1.40 08/12 Specimen Type: SERUM No comment entered. Ordering Provider: AVERY CASTAÑEDA Report Released Date/Time: Aug 07, 2024 08:33 AM Reporting Lab: [facility] [address] [address] Performing Lab: [facility] [address] [address] [place] BASIC METABOLI C PANEL (fasting ) GLOMERULAR FILTRATION RATE/1.73 SQ M.PREDICTE D [VOLUME RATE/AREA] IN SERUM, PLASMA OR BLOOD BY CREATININE -BASED FORMULA (CKD-EPI 2020) 90 mL/min 60 08/12 Specimen Type: SERUM No comment entered. Ordering Provider: AVERY CASTAÑEDA Report Released Date/Time: Aug 07, 2024 08:33 AM Reporting Lab: [facility] [address] [address] Performing Lab: [facility] [address] [address] [place] CBC AND DIFF (AUTO) LEUKOCYTES [#/VOLUME] IN BLOOD BY AUTOMATED COUNT 10.65 10*3/uL 4.50 - 11.00 08/12 Specimen Type: BLOOD No comment entered. Ordering Provider: AVERY CASTAÑEDA Report Released Date/Time: Aug 07, 2024 08:33 AM Reporting Lab: [facility] [address] [facility] [address] Performing Lab: [facility] [address] [address] [place] CBC AND DIFF (AUTO) ERYTHROCYT ES [#/VOLUME] IN BLOOD BY AUTOMATED COUNT 6.09 10*6/uL 4.23 - 5.66 08/12 H Specimen Type: BLOOD No comment entered. Ordering Provider: AVERY CASTAÑEDA Report Released Date/Time: Aug 07, 2024 08:33 AM Reporting Lab: [facility] [address] [address] Performing Lab: [facility] [address] [address] [place] CBC AND DIFF (AUTO) HEMOGLOBIN [MASS/VOLU ME] IN BLOOD 18.0 g/dL 12.8 - 17 08/12 H Specimen Type: BLOOD No comment entered. Ordering Provider: AVERY CASTAÑEDA Report Released Date/Time: Aug 07, 2024 08:33 AM Reporting Lab: [facility] [address] [address] Performing Lab: [facility] [address] [address] [place] CBC AND DIFF (AUTO) HEMATOCRIT [VOLUME FRACTION] OF BLOOD BY AUTOMATED COUNT 52.1 39.2 - 50.4 08/12 H Specimen Type: BLOOD No comment entered. Ordering Provider: AVERY CASTAÑEDA Report Released Date/Time: Aug 07, 2024 08:33 AM Reporting Lab: [facility] [address] [address] Performing Lab: [facility] [address] [address] [place] CBC AND DIFF (AUTO) MCV [ENTITIC VOLUME] BY AUTOMATED COUNT 85.6 fL 82 - 99 08/12 Specimen Type: BLOOD No comment entered. Ordering Provider: AVERY CASTAÑEDA Report Released Date/Time: Aug 07, 2024 08:33 AM Reporting Lab: [facility] [address] [address] Performing Lab: [facility] [address] [place] CBC AND DIFF (AUTO) MCHC [MASS/VOLU ME] BY AUTOMATED COUNT 34.5 g/dL 30.8 - 35.1 08/12 Specimen Type: BLOOD No comment entered. Ordering Provider: AVERY CASTAÑEDA Report Released Date/Time: Aug 07, 2024 08:33 AM Reporting Lab: [facility] [address] [address] Performing Lab: [facility] [address] [place] CBC AND DIFF (AUTO) PLATELETS [#/VOLUME] IN BLOOD BY AUTOMATED COUNT 126 10*3/uL 140 - 360 08/12 L Specimen Type: BLOOD No comment entered. Ordering Provider: AVERY CASTAÑEDA Report Released Date/Time: Aug 07, 2024 08:33 AM Reporting Lab: [facility] [address] [address] Performing Lab: [facility] [address] [address] [place] CBC AND DIFF (AUTO) ERYTHROCYT E DISTRIBUTI ON WIDTH [RATIO] BY AUTOMATED COUNT 13.6 12.0 - 16.0 08/12 Specimen Type: BLOOD No comment entered. Ordering Provider: AVERY CASTAÑEDA Report Released Date/Time: Aug 07, 2024 08:33 AM Reporting Lab: [facility] [address] Performing Lab: [facility] [address] [place] CBC AND DIFF (AUTO) MONOCYTES [#/VOLUME] IN BLOOD BY AUTOMATED COUNT 0.74 10*3/uL 0.30 - 1.10 08/12 Specimen Type: BLOOD No comment entered. Ordering Provider: AVERY CASTAÑEDA Report Released Date/Time: Aug 07, 2024 08:33 AM Reporting Lab: [facility] [place] [address] [address] Performing Lab: [facility] [place] [address] [address] [place] CBC AND DIFF (AUTO) MCH [ENTITIC MASS] BY AUTOMATED COUNT 29.6 pg 26.2 - 32.6 08/12 Specimen Type: BLOOD No comment entered. Ordering Provider: AVERY CASTAÑEDA Report Released Date/Time: Aug 07, 2024 08:33 AM Reporting Lab: [facility] [place] [address] [address] Performing Lab: [facility] [place] [address] [address] [place] CBC AND DIFF (AUTO) NEUTROPHIL S/100 LEUKOCYTES IN BLOOD BY AUTOMATED COUNT 44.3 43.7 - 75.8 08/12 Specimen Type: BLOOD No comment entered. Ordering Provider: AVERY CASTAÑEDA Report Released Date/Time: Aug 07, 2024 08:33 AM Reporting Lab: [facility] [place] [address] [address] Performing Lab: [facility] [place] [address] [address] [place] CBC AND DIFF (AUTO) LYMPHOCYTE S/100 LEUKOCYTES IN BLOOD BY AUTOMATED COUNT 44.1 14.0 - 42.3 08/12 H Specimen Type: BLOOD No comment entered. Ordering Provider: AVERY CASTAÑEDA Report Released Date/Time: Aug 07, 2024 08:33 AM Reporting Lab: [facility] [place] [address] [address] Performing Lab: [facility] [place] [address] [address] [place] CBC AND DIFF (AUTO) MONOCYTES/ 100 LEUKOCYTES IN BLOOD BY AUTOMATED COUNT 6.9 5.1 - 13.7 08/12 Specimen Type: BLOOD No comment entered. Ordering Provider: AVERY CASTAÑEDA Report Released Date/Time: Aug 07, 2024 08:33 AM Reporting Lab: [facility] [place] [address] [address] Performing Lab: [facility] [address] [address] [place] CBC AND DIFF (AUTO) EOSINOPHIL S/100 LEUKOCYTES IN BLOOD BY AUTOMATED COUNT 3.5 0.4 - 6.8 08/12 Specimen Type: BLOOD No comment entered. Ordering Provider: AVERY CASTAÑEDA Report Released Date/Time: Aug 07, 2024 08:33 AM Reporting Lab: [facility] [address] [address] Performing Lab: [facility] [address] [address] [place] CBC AND DIFF (AUTO) BASOPHILS/ 100 LEUKOCYTES IN BLOOD BY AUTOMATED COUNT 1.0 0.1 - 2.0 08/12 Specimen Type: BLOOD No comment entered. Ordering Provider: AVERY CASTAÑEDA Report Released Date/Time: Aug 07, 2024 08:33 AM Reporting Lab: [facility] [address] [address] Performing Lab: [facility] [place] [address] [address] [place] CBC AND DIFF (AUTO) NEUTROPHIL S [#/VOLUME] IN BLOOD BY AUTOMATED COUNT 4.71 10*3/uL 2.20 - 7.60 08/12 Specimen Type: BLOOD No comment entered. Ordering Provider: AVERY CASTAÑEDA Report Released Date/Time: Aug 07, 2024 08:33 AM Reporting Lab: [facility] [address] [address] Performing Lab: [facility] [place] [address] [place] CBC AND DIFF (AUTO) LYMPHOCYTE S [#/VOLUME] IN BLOOD BY AUTOMATED COUNT 4.70 10*3/uL 1.00 - 3.20 08/12 H Specimen Type: BLOOD No comment entered. Ordering Provider: AVERY CASTAÑEDA Report Released Date/Time: Aug 07, 2024 08:33 AM Reporting Lab: [facility] [address] [address] Performing Lab: [facility] [address] [place] CBC AND DIFF (AUTO) EOSINOPHIL S [#/VOLUME] IN BLOOD BY AUTOMATED COUNT 0.37 10*3/uL 0.03 - 0.44 08/12 Specimen Type: BLOOD No comment entered. Ordering Provider: AVERY CASTAÑEDA Report Released Date/Time: Aug 07, 2024 08:33 AM Reporting Lab: [facility] [address] [address] Performing Lab: [facility] [address] [address] [place] CBC AND DIFF (AUTO) BASOPHILS [#/VOLUME] IN BLOOD BY AUTOMATED COUNT 0.11 10*3/uL 0.01 - 0.13 08/12 Specimen Type: BLOOD No comment entered. Ordering Provider: AVERY CASTAÑEDA Report Released Date/Time: Aug 07, 2024 08:33 AM Reporting Lab: [facility] [address] [address] Performing Lab: [facility] [address] [address] [place] CBC AND DIFF (AUTO) IMMATURE GRANULOCYT ES/100 LEUKOCYTES IN BLOOD BY AUTOMATED COUNT 0.2 0.0 - 0.7 08/12 Specimen Type: BLOOD No comment entered. Ordering Provider: AVERY CASTAÑEDA Report Released Date/Time: Aug 07, 2024 08:33 AM Reporting Lab: [facility] [address] Performing Lab: [facility] [place] [address] [address] [place] CBC AND DIFF (AUTO) IMMATURE GRANULOCYT ES [#/VOLUME] IN BLOOD 0.02 10*3/uL 0.00 - 0.06 08/12 Specimen Type: BLOOD No comment entered. Ordering Provider: AVERY CASTAÑEDA Report Released Date/Time: Aug 07, 2024 08:33 AM Reporting Lab: [facility] [place] [address] [address] Performing Lab: [facility] [address] [address] [place] CBC AND DIFF (AUTO) NRBC % 0.0 0.0 - 0.0 08/12 Specimen Type: BLOOD No comment entered. Ordering Provider: AVERY CASTAÑEDA Report Released Date/Time: Aug 07, 2024 08:33 AM Reporting Lab: [facility] [place] [address] [address] Performing Lab: [facility] [place] [address] [address] [place] CBC AND DIFF (AUTO) NRBC, ABS 0.00 10*3/uL 0.00 - 0.00 08/12 Specimen Type: BLOOD No comment entered. Ordering Provider: AVERY CASTAÑEDA Report Released Date/Time: Aug 07, 2024 08:33 AM Reporting Lab: [facility] [place] [address] [address] Performing Lab: [facility] [place] [address] [address] [place] MICROALB UMIN CREATINI NE RATIO PANEL MICROALBUM IN/CREATIN INE [MASS RATIO] IN URINE 23.7 mg/g 0 - 29.9 11/23 Specimen Type: URINE No comment entered. Ordering Provider: CHAMP YOU Report Released Date/Time: Nov 01, 2023 01:25 PM Reporting Lab: [place] [facility] [place] [address] [address] Performing Lab: [address] [address] [place] MICROALB UMIN CREATINI NE RATIO PANEL MICROALBUM IN [MASS/VOLU ME] IN URINE 1.0 mg/dL 11/23 Specimen Type: URINE No comment entered. Ordering Provider: CHAMP YOU IE Report Released Date/Time: Nov 01, 2023 01:25 PM Reporting Lab: [address] [address] Performing Lab: [address] [address] [place] MICROALB UMIN CREATINI NE RATIO PANEL CREATININE [MASS/VOLU ME] IN URINE 42.17 mg/dL 11/23 Specimen Type: URINE No comment entered. Ordering Provider: CHAMP YOU IE Report Released Date/Time: Nov 01, 2023 01:25 PM Reporting Lab: [address] [address] Performing Lab: [address] [address] [place] HEMOGLOB IN A1C PANEL HEMOGLOBIN A1C/HEMOGL OBIN.TOTAL IN BLOOD BY HPLC 5.8 4.0 - 5.6 11/23 H Specimen Type: BLOOD Comment: Values obtained from A1C measurement s can vary. For atypical A1C assays, a reported value of 7.0 could actually be between 6.72 and 7.28 if measured by a reference method. A reported value of 9.0 could actually be between 8.73 and 9.27. Ref: http://www. ngsp.org/[place] Pdata.asp Ordering Provider: CHAMP YOU IE Report Released Date/Time: Nov 01, 2023 01:27 PM Reporting Lab: [address] [address] Performing Lab: [address] [address] [place] BASIC METABOLI C PANEL (fasting ) UREA NITROGEN [MASS/VOLU ME] IN SERUM OR PLASMA 10 mg/dL 7 - 25 11/23 Specimen Type: SERUM No comment entered. Ordering Provider: CHAMP OYU IE Report Released Date/Time: Nov 01, 2023 01:27 PM Reporting Lab: [facility] [address] [facility] [address] Performing Lab: [address] [address] [place] BASIC METABOLI C PANEL (fasting ) GLUCOSE [MASS/VOLU ME] IN SERUM OR PLASMA 92 mg/dL 65 - 100 11/23 Specimen Type: SERUM No comment entered. Ordering Provider: CHAMP YOU IE Report Released Date/Time: Nov 01, 2023 01:27 PM Reporting Lab: [address] [address] Performing Lab: [address] [address] [place] BASIC METABOLI C PANEL (fasting ) SODIUM [MOLES/VOL UME] IN SERUM OR PLASMA 137 mmol/L 135 - 145 11/23 Specimen Type: SERUM No comment entered. Ordering Provider: CHAMP YOU IE Report Released Date/Time: Nov 01, 2023 01:27 PM Reporting Lab: [address] [address] Performing Lab: [address] [address] [place] BASIC METABOLI C PANEL (fasting ) POTASSIUM [MOLES/VOL UME] IN SERUM OR PLASMA 4.1 mmol/L 3.5 - 5.0 11/23 Specimen Type: SERUM No comment entered. Ordering Provider: CHAMP YOU IE Report Released Date/Time: Nov 01, 2023 01:27 PM Reporting Lab: [address] [address] Performing Lab: [address] [address] [place] BASIC METABOLI C PANEL (fasting ) CHLORIDE [MOLES/VOL UME] IN SERUM OR PLASMA 104 mmol/L 100 - 110 11/23 Specimen Type: SERUM No comment entered. Ordering Provider: CHAMP YOU IE Report Released Date/Time: Nov 01, 2023 01:27 PM Reporting Lab: [facility] [address] [address] Performing Lab: [address] [address] [place] BASIC METABOLI C PANEL (fasting ) CARBON DIOXIDE, TOTAL [MOLES/VOL UME] IN SERUM OR PLASMA 25 meq/L 20 - 30 11/23 Specimen Type: SERUM No comment entered. Ordering Provider: CHAMP YOU IE Report Released Date/Time: Nov 01, 2023 01:27 PM Reporting Lab: [address] [address] Performing Lab: [address] [address] [place] BASIC METABOLI C PANEL (fasting ) CREATININE [MASS/VOLU ME] IN SERUM OR PLASMA 0.79 mg/dL 0.50 - 1.40 11/23 Specimen Type: SERUM No comment entered. Ordering Provider: CHAMP YOU IE Report Released Date/Time: Nov 01, 2023 01:27 PM Reporting Lab: [address] [address] Performing Lab: [address] [address] [place] BASIC METABOLI C PANEL (fasting ) GLOMERULAR FILTRATION RATE/1.73 SQ M.PREDICTE D [VOLUME RATE/AREA] IN SERUM, PLASMA OR BLOOD BY CREATININE -BASED FORMULA (CKD-EPI 2020) >90mL/mi n 60 11/23 Specimen Type: SERUM No comment entered. Ordering Provider: CHAMP YOU IE Report Released Date/Time: Nov 01, 2023 01:27 PM Reporting Lab: [address] [address] Performing Lab: [address] [address] [place] URINALYS IS CLEAN CATCH COLOR OF URINE Light-Ye llow 11/23 Specimen Type: URINE Comment: If Glucose = >500 and Ketones are positive, please alert the Physician. Ordering Provider: CHAMP YOU Report Released Date/Time: Nov 01, 2023 01:25 PM Reporting Lab: [facility] [address] [address] Performing Lab: [facility] [place] [address] [address] [place] URINALYS IS CLEAN CATCH APPEARANCE OF URINE Clear 11/23 Specimen Type: URINE Comment: If Glucose = >500 and Ketones are positive, please alert the Physician. Ordering Provider: CHAMP YOU Report Released Date/Time: Nov 01, 2023 01:25 PM Reporting Lab: [facility] [address] Performing [facility]: [facility] [address] [address] [place] URINALYS IS CLEAN CATCH GLUCOSE [MASS/VOLU ME] IN URINE NEGATIVE mg/dL 11/23 Specimen Type: URINE Comment: If Glucose = >500 and Ketones are positive, please alert the Physician. Ordering Provider: CHAMP YOU Report Released Date/Time: Nov 01, 2023 01:25 PM Reporting Lab: [facility] [address] [address] Performing Lab: [facility] [place] [address] [address] [place] URINALYS IS CLEAN CATCH KETONES [MASS/VOLU ME] IN URINE BY TEST STRIP NEGATIVE mg/dL 11/23 Specimen Type: URINE Comment: If Glucose = >500 and Ketones are positive, please alert the Physician. Ordering Provider: CHAMP YOU Report Released Date/Time: Nov 01, 2023 01:25 PM Reporting Lab: [facility] [place] [address] [address] Performing Lab: [email or web address] [address] [place] URINALYS IS CLEAN CATCH ERYTHROCYT ES [PRESENCE] IN URINE SEDIMENT BY LIGHT MICROSCOPY NEGATIVE mg/dL 11/23 Specimen Type: URINE Comment: If Glucose = >500 and Ketones are positive, please alert the Physician. Ordering Provider: CHAMP YOU IE Report Released Date/Time: Nov 01, 2023 01:25 PM Reporting Lab: [facility] [address] Performing Lab: [facility] [address] [place] URINALYS IS CLEAN CATCH PROTEIN [MASS/VOLU ME] IN URINE BY TEST STRIP NEGATIVE mg/dL 11/23 Specimen Type: URINE Comment: If Glucose = >500 and Ketones are positive, please alert the Physician. Ordering Provider: CHAMP YOU IE Report Released Date/Time: Nov 01, 2023 01:25 PM Reporting Lab: [facility] [address] [address] Performing Lab: [facility] [address] [place] URINALYS IS CLEAN CATCH NITRITE [PRESENCE] IN URINE NEGATIVE mg/dL 11/23 Specimen Type: URINE Comment: If Glucose = >500 and Ketones are positive, please alert the Physician. Ordering Provider: CHAMP YOU IE Report Released Date/Time: Nov 01, 2023 01:25 PM Reporting Lab: [facility] [address] [address] Performing Lab: [facility] [address] [place] URINALYS IS CLEAN CATCH BILIRUBIN. TOTAL [PRESENCE] IN URINE NEGATIVE mg/dL 11/23 Specimen Type: URINE Comment: If Glucose = >500 and Ketones are positive, please alert the Physician. Ordering Provider: CHAMP YOU IE Report Released Date/Time: Nov 01, 2023 01:25 PM Reporting Lab: [facility] [address] Performing Lab: [facility] [address] [facility] [address] [place] URINALYS IS CLEAN CATCH SPECIFIC GRAVITY OF URINE BY REFRACTOME TRY 1.008 1.016 - 1.022 11/23 L Specimen Type: URINE Comment: If Glucose = >500 and Ketones are positive, please alert the Physician. Ordering Provider: CHAMP YOU IE Report Released Date/Time: Nov 01, 2023 01:25 PM Reporting Lab: [address] [address] Performing Lab: [address] [address] [place] URINALYS IS CLEAN CATCH PH OF URINE BY TEST STRIP 6.5 5.0 - 9.0 11/23 Specimen Type: URINE Comment: If Glucose = >500 and Ketones are positive, please alert the Physician. Ordering Provider: CHAMP YOU IE Report Released Date/Time: Nov 01, 2023 01:25 PM Reporting Lab: [address] [address] Performing Lab: [address] [address] [place] URINALYS IS CLEAN CATCH UROBILINOG EN [MASS/VOLU ME] IN URINE BY TEST STRIP <2.0mg/d L <2.0 - 2.0 11/23 Specimen Type: URINE Comment: If Glucose = >500 and Ketones are positive, please alert the Physician. Ordering Provider: CHAMP YOU IE Report Released Date/Time: Nov 01, 2023 01:25 PM Reporting Lab: [address] [address] Performing Lab: [address] [address] [place] URINALYS IS CLEAN CATCH LEUKOCYTE ESTERASE [PRESENCE] IN URINE BY TEST STRIP NEGATIVE 11/23 Specimen Type: URINE Comment: If Glucose = >500 and Ketones are positive, please alert the Physician. Ordering Provider: CHAMP YOU IE Report Released Date/Time: Nov 01, 2023 01:25 PM Reporting Lab: [facility] [address] Performing Lab: [facility] [address] [address] [place] URINALYS IS COLOR OF URINE Colorles s 08/01 Specimen Type: URINE Comment: If Glucose = >500 and Ketones are positive, please alert the Physician. Ordering Provider: CHAMP YOU IE Report Released Date/Time: Aug 01, 2023 09:58 AM Reporting Lab: [facility] [address] [address] Performing Lab: [address] [address] [place] URINALYS IS APPEARANCE OF URINE Clear 08/01 Specimen Type: URINE Comment: If Glucose = >500 and Ketones are positive, please alert the Physician. Ordering Provider: CHAMP YOU IE Report Released Date/Time: Aug 01, 2023 09:58 AM Reporting Lab: [facility] [address] [address] Performing Lab: [facility] [address] [address] [place] URINALYS IS GLUCOSE [MASS/VOLU ME] IN URINE NEGATIVE mg/dL 08/01 Specimen Type: URINE Comment: If Glucose = >500 and Ketones are positive, please alert the Physician. Ordering Provider: CHAMP YOU IE Report Released Date/Time: Aug 01, 2023 09:58 AM Reporting Lab: [facility] [address] [address] Performing Lab: [facility] [address] [place] URINALYS IS KETONES [MASS/VOLU ME] IN URINE BY TEST STRIP NEGATIVE mg/dL 08/01 Specimen Type: URINE Comment: If Glucose = >500 and Ketones are positive, please alert the Physician. Ordering Provider: CHAMP YOU IE Report Released Date/Time: Aug 01, 2023 09:58 AM Reporting Lab: [address] [address] Performing Lab: [facility] [address] [facility] [address] [place] URINALYS IS ERYTHROCYT ES [PRESENCE] IN URINE SEDIMENT BY LIGHT MICROSCOPY NEGATIVE mg/dL 08/01 Specimen Type: URINE Comment: If Glucose = >500 and Ketones are positive, please alert the Physician. Ordering Provider: CHAMP YOU IE Report Released Date/Time: Aug 01, 2023 09:58 AM Reporting Lab: [address] [address] Performing Lab: [address] [address] [place] URINALYS IS PROTEIN [MASS/VOLU ME] IN URINE BY TEST STRIP NEGATIVE mg/dL 08/01 Specimen Type: URINE Comment: If Glucose = >500 and Ketones are positive, please alert the Physician. Ordering Provider: CHAMP YOU IE Report Released Date/Time: Aug 01, 2023 09:58 AM Reporting Lab: [address] [address] Performing Lab: [address] [address] [place] URINALYS IS NITRITE [PRESENCE] IN URINE NEGATIVE mg/dL 08/01 Specimen Type: URINE Comment: If Glucose = >500 and Ketones are positive, please alert the Physician. Ordering Provider: CHAMP YOU IE Report Released Date/Time: Aug 01, 2023 09:58 AM Reporting Lab: [address] [address] Performing Lab: [address] [address] [place] URINALYS IS BILIRUBIN. TOTAL [PRESENCE] IN URINE NEGATIVE mg/dL 08/01 Specimen Type: URINE Comment: If Glucose = >500 and Ketones are positive, please alert the Physician. Ordering Provider: CHAMP YOU IE Report Released Date/Time: Aug 01, 2023 09:58 AM Reporting Lab: [facility] [address] [address] Performing Lab: [address] [address] [place] URINALYS IS SPECIFIC GRAVITY OF URINE BY REFRACTOME TRY 1.003 1.016 - 1.022 08/01 L Specimen Type: URINE Comment: If Glucose = >500 and Ketones are positive, please alert the Physician. Ordering Provider: CHAMP YOU IE Report Released Date/Time: Aug 01, 2023 09:58 AM Reporting Lab: [address] [address] Performing Lab: [address] [address] [place] URINALYS IS PH OF URINE BY TEST STRIP 7.0 5.0 - 9.0 08/01 Specimen Type: URINE Comment: If Glucose = >500 and Ketones are positive, please alert the Physician. Ordering Provider: CHAMP YOU Report Released Date/Time: Aug 01, 2023 09:58 AM Reporting Lab: [facility] [address] [address] Performing Lab: [address] [address] [place] URINALYS IS UROBILINOG EN [MASS/VOLU ME] IN URINE BY TEST STRIP <2.0mg/d L <2.0 - 2.0 08/01 Specimen Type: URINE Comment: If Glucose = >500 and Ketones are positive, please alert the Physician. Ordering Provider: CHAMP YOU IE Report Released Date/Time: Aug 01, 2023 09:58 AM Reporting Lab: [facility] [address] [address] Performing Lab: [address] [address] [place] URINALYS IS LEUKOCYTE ESTERASE [PRESENCE] IN URINE BY TEST STRIP NEGATIVE 08/01 Specimen Type: URINE Comment: If Glucose = >500 and Ketones are positive, please alert the Physician. Ordering Provider: CHAMP YOU Report Released Date/Time: Aug 01, 2023 09:58 AM Reporting Lab: [facility] [facility] [address] [facility] [address] Performing Lab: [facility] [place] [facility] [address] [facility] [address] [facility] Vital Signs Combined list of inpatient and outpatient Vital Signs from Department of Defense and Veterans Affairs, ranging from 12 months to all on record, depending upon the facility. Vital Sign Value Date Comments Source SYSTOLIC BLOOD PRESSURE 148 11/26/19 25 11:00:48 [facility] [place] [facility] DIASTOLIC BLOOD PRESSURE 92 025 11:00:48 [facility] [place] [facility] PULSE OXIMETRY 95 11/26/2024 11:00:48 [facility] [place] [facility] WEIGHT 161.6 11/26/2024 11:00:48 [facility] [place] [facility] BMI 26 kg/m2 11/26/2024 11[facility]00:48 [facility] [place] [facility] TEMPERATURE 97.6 11/26/2024 11:00:48 [facility] [place] [facility] PULSE 58 11/26/2024 11:00:48 [facility] [place] [facility] RESPIRATION 18 11/26/2024 11:00:48 [facility] [place] [facility] SYSTOLIC BLOOD PRESSURE 125 11/05/20 24 10:07:23 [facility] DIASTOLIC BLOOD PRESSURE 80 024 10:07:23 [facility] PULSE OXIMETRY 95 11/05/2024 10:07:23 [facility] PAIN 1 11/05/2024 10:07:23 [facility] TEMPERATURE 98 11/05/2024 10:07:23 [facility] PULSE 65 11/05/2024 10:07:23 [facility] RESPIRATION 16 11/05/2024 10:07:23 [facility] SYSTOLIC BLOOD PRESSURE 137 08/19/20 24 15:01:27 [facility] DIASTOLIC BLOOD PRESSURE 84 15:01:27 [facility] PULSE OXIMETRY 94 08/19/2024 15:01:27 [facility] WEIGHT 161 08/19/2024 15:01:27 [facility] BMI 26 kg/m2 08/19/2024 15:01:27 [facility] PULSE 64 08/19/2024 15:01:27 [facility] SYSTOLIC BLOOD PRESSURE 121 05/30/20 14:56:25 [facility] DIASTOLIC BLOOD PRESSURE 76 024 14:56:25 [facility] PULSE OXIMETRY 95 05/30/2024 14:56:25 [facility] WEIGHT 152 05/30/2024 14:56:25 [facility] BMI 25 kg/m2 05/30/2024 14:56:25 [facility] PULSE 62 05/30/2024 14:56:25 [facility] SYSTOLIC BLOOD PRESSURE 111 03/06/20 11:24:22 [facility] DIASTOLIC BLOOD PRESSURE 79 024 11:24:22 [facility] PULSE OXIMETRY 93 03/06/2024 11:24:22 [facility] PAIN 2 03/06/2024 11:24:22 [facility] TEMPERATURE 99.3 03/06/2024 11:24:22 [facility] PULSE 81 03/06/2024 11:24:22 [facility] RESPIRATION 18 03/06/2024 11:24:22 [facility] Encounters Combined list of: 1) Encounters from Department of Veterans Affairs facilities going backup to the last 18 months, not all [place] inpatient encounters are included; 2) Encounters from the Department of Defense facilities going backup to 280 months. Location Location Details Encounter Type Encounter Number Reason For Visit Attending Provider ADM Date DC Date Status Disposition Source [facility] Outpatient Encounter [id number] 07/31 [facility] [id number] 07/31 [facility] Out[facility] Encounter [id number] 08/01 [facility] [place] OFF/OP EST MAY X REQ PHY/QHP [id number] Diagnos is: ICD-10- CM R35.0 Frequen cy of micturi tion PARRISHRAJESH Escalante 08/01 [place] [facility] OFFICE O/P EST MOD 30-39 MIN [id number] Diagnos is: ICD-10- CM K76.0 Fatty (change of) liver, not elsewhe re classif ied PASTORA TEAGUE 08/02 [facility] [place] [facility] F[facility] [id number] Diagnos is: ICD-10- CM K76.0 Fatty (change of) liver, not elsewhe re classif ied PASTORA TEAGUE 08/02 [facility] [place] [facility] Outpatient Encounter [id number] 08/06 [facility] [place] OFF/OP EST MAY X REQ PHY/QHP [id number] Diagnos is: ICD-10- CM I10 Essenti al (primar y) hyperte ZHANE Lewis 08/09 [facility] [place] [facility] Outpatient Encounter [id number] 08/13 [facility] [place] OFF/OP EST MAY X REQ PHY/QHP [id number] Diagnos is: ICD-10- CM H02.846 Edema of left eye, unspeci fied eyelid PARRISHRAJESH 08/13 [place] [facility] Outpatient Encounter [id number] 08/13 [facility] Outpatient Encounter [id number] 08/13 [facility] EYE EXAM ESTABLISH PATIENT [id number] Diagnos is: ICD-10- CM L71.8 Other rosaPREETHI Chaney 08/14 [facility] En[facility] [id number] 08/14 [facility] En[facility] [id number] 09/10 [facility] En[facility] [id number] 09/20 [facility] [place] OFF/OP EST MARCH X REQ PHY/QHP [id number] Diagnos is: ICD-10- CM I10 Essenti al (primar y) hyperte nsion PARRISH,ER IC K 10/02 [place] [facility] En[facility] [id number] 10/02 [facility] En[facility] [id number] AKIKO HOUGH 10/13 [facility] En[facility] [id number] 10/15 [facility] En[facility] [id number] 10/16 [facility] En[facility] [id number] 10/22 [facility] En[facility] [id number] 11/03 [facility] En[facility] [id number] 11/06 [facility]counter [id number] 11[facility]06 [facility] [id number] 11/08 [facility] Encounter [id number] 11/23 [facility] [place] OFF/OP EST MAY X REQ PHY/QHP [id number] Diagnos is: ICD-10- CM Z23 Encount er for immuniz ation ZAKIYA VANEGAS YS 11/27 [place] [facility] Encounter [id number] 11/27 [facility] OFFICE O/P EST MOD 30 MIN [id number] Diagnos is: ICD-10- CM R23.2 LIDIA Duvall 11/29 [place] [facility] En[facility] [id number] 11/29 [facility] En[facility] [id number] 12/06 [facility] Outpatient Encounter [id number] 01/03 [facility] CASE [facility] LIT [id number] Diagnos is: ICD-10- CM K03.6 Deposit s [accret ions] on teeth DELIA DALLAS JOSE K 01/04 [facility] BRIEF ASSESSMENT [id number] Diagnos is: ICD-10- CM K08.409 Partial loss of teeth, unspeci fied cause, unspeci fied class [place] STRINGER 01/04 [facility] [place] Outpatient Encounter [id number] 01/09 [place] [facility] Outpatient Encounter [id number] 01/15 [facility] Outpatient Encounter [id number] 01/16 [facility] [place] OFF/OP EST MARCH X REQ PHY/QHP [id number] Diagnos is: ICD-10- CM I10 Essenti al (primar y) hyperte gianakatie ELIAZAR ZHANE 01/22 [place] OFF/OP EST MARCH X REQ PHY/QHP [id number] Diagnos is: ICD-10- CM R68.89 Other general symptom s and signs RAJESH SENIOR K 01/22 [place] OFFICE O/P EST LOW 20 MIN [id number] Diagnos is: ICD-10- CM S01.01X S Lacerat ion without foreign body of scalp, sequdolores SIMPSON,KE NDRA C 01/22 [place] [facility] OFF[facility] O/P EST LOW 20 MIN [id number] Diagnos is: ICD-10- CM Q66.50 Congeni tisha pes planus, unspeci fied foot NAYANA MURDOCK RLES D 01/23 [facility] En[facility] [id number] 01/27 [facility] En[facility] [id number] 02/04 [facility] En[facility] [id number] 02/05 [facility] En[facility] [id number] 02/24 [facility] En[facility] [id number] 02/24 [facility] [place] OFF/OP EST MAY X REQ PHY/QHP [id number] Diagnos is: ICD-10- CM R06.7 Eduard SENIOR,RAJESH IC K 02/24 [place] [facility] En[facility] [id number] 02/25 [facility] En[facility] [id number] 02/26 [facility] En[facility] [id number] 02/26 [facility] [place] OFF/OP EST MAY X REQ PHY/QHP [id number] Diagnos is: ICD-10- CM R06.7 Sneezin rosa maria SENIOR,ER IC K 02/26 [place] OFFICE O/P EST MOD 30 MIN [id number] Diagnos is: ICD-10- CM J30.2 Other seasona l allergi c rhiniti s TATIANA,KE NDRA C 02/26 [place] [facility] En[facility] [id number] 02/27 [facility] En[facility] [id number] 03/06 [facility] [place] OFF/OP EST MAY X REQ PHY/QHP [id number] Diagnos is: ICD-10- CM R05.9 Cough, unspeci fied PARRISH,ER IC K 03/06 [place] [facility] En[facility] [id number] 03/06 [facility] En[facility] [id number] 03/07 [facility] [place] Outpatient Encounter [id number] 03/07 [place] [facility] Out[facility] Encounter [id number] 03/10 [facility] [id number] 03/10 [facility] [id number] 03/17 [facility] En[facility] [id number] 03/19 [facility] [id number] 03/19 [facility] [id number] 03/21 [facility] En[facility] [id number] 03/26 [facility] En[facility] [id number] 03/27 [facility] En[facility] [id number] 04/01 [facility] [id number] 05/06 [facility] En[facility] [id number] 05/07 [facility] En[facility] [id number] 05/16 [facility] En[facility] [id number] 05/20 [facility] [place] OFFICE O/P EST MOD 30 MIN [id number] Diagnos is: ICD-10- CM I10 Essenti al (primar y) hyperte katy CASTAÑEDACAR CARLEY F 05/30 [place] [facility] En[facility] [id number] 05/30 [facility] [place] OFFICE O/P EST MOD 30 MIN [id number] 1BY. 96 Diagnos is: ICD-10- CM I10 Essenti al (primar y) hyperte NICOL Winter 05/30 [place] [facility] Outpatient Encounter [id number] 06/05 [facility] [id number] 06/10 [facility] En[facility] [id number] 06/16 [facility] REMOVABLE PROSTHODON TIC PROC [id number] Diagnos is: ICD-10- CM K08.409 Partial loss of teeth, unspeci fied cause, unspeci fied class [place] STR[place]ER 06/17 [facility] En[facility] [id number] 06/20 [facility] [place] OFF/OP EST MARCH X REQ PHY/QHP [id number] Diagnos is: ICD-10- CM H61.23 Impacte d cerumen , bilater al HARDY LAZAR MARLENE 06/20 [place] [facility] DENTURES ADJUST PART MAXILL [id number] 1. Diagnos is: ICD-10- CM K08.409 Partial loss of teeth, unspeci fied cause, unspeci fied class [place] STR[place]ER 07/09 [facility] En[facility] [id number] 07/09 [facility] En[facility] [id number] 07/16 [facility] En[facility] [id number] 07/29 [facility] En[facility] [id number] 07/31 [facility] En[facility] [id number] 08/11 [facility] REMOVABLE PROSTHODON TIC PROC [id number] Diagnos is: ICD-10- CM K08.409 Partial loss of teeth, unspeci fied cause, unspeci fied class [place] STRINGER 08/12 [facility] [place] OFF/OP EST MARCH X REQ PHY/QHP [id number] Diagnos is: ICD-10- CM Z23 Encount er for immuniz ation ALISE WREN 08/13 [facility] MOD 30 MIN [id number] 1BY. 19 Diagnos is: ICD-10- CM I10 Essenti al (primar y) hyperte nsion STELEA,CAR CARLEY F 08/19 [place] [facility] Out[facility] Encounter [id number] 08/28 [facility] PERIODONTA L MAINT PROCEDURES [id number] 1. Diagnos is: ICD-10- CM K03.6 Deposit s [accret ions] on teeth BLANCAN ADEGenetHDA 08/29 [facility] En[facility] [id number] 1.09/11 [facility] En[facility] [id number] 09/18 [facility] DENTURES ADJUST PART MAXILL [id number] Diagnos is: ICD-10- CM K08.9 Disorde r of teeth and support ing structu res, unspeci [place] Marrero 09/19 [facility] En[facility] [id number] 10/14 [facility] [place] [id number] 1. Diagnos is: ICD-10- CM K08.9 Disorde r of teeth and support ing structu res, unspeci [place] Marrero 10/15 [facility] Encounter [id number] 11/05 [facility] [place] OFF/OP EST MARCH X REQ PHY/QHP [id number] Diagnos is: ICD-10- CM H57.12 Ocular pain, left eye PARRISH,ER IC K 11/05 [place] [facility] Out[facility] Encounter [id number] 11/05 [facility] Out[facility] Encounter [id number] 1.11/06 [facility] Encounter [id number] 1[facility]11/10 [facility] [id number] [facility] DENTURES MAXILL PART METAL [id number] 1. 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 Belinda Augustine 11/26 [facility] OFFICE O/P EST MOD 30 MIN [id number] Diagnos is: ICD-10- CM M54.50 Low back pain, unspeci fied ANANT MONROE 11/26 [facility] En[facility] [id number] [facility] [facility] En[facility] [id number] 12/01 [facility] En[facility] [id number] 12/03 [facility] LIMIT ORAL EVAL PROBLM FOCUS [id number] Diagnos is: ICD-10- CM K08.9 Disorde r of teeth and support ing structu res, unspeci [place] Marrero 12/04 [facility] Encounter [id number] [facility] CASE MANAGEMENT [id number] Diagnos is: ICD-10- CM 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, 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 JEFFREY Berger 12/09 [place] [facility] Out[facility] Encounter [id number] 12/14 [facility] En[facility] [id number] 12/15 [facility] En[facility] [id number] 12/15 [facility] Encounter [id number] 12/18 [facility] Encounter [id number] 12/22 [facility] [place] PH1 ASSMT&MGMT NQHP 5-10 [id number] Diagnos is: ICD-10- CM Z71.9 Instructional Systems Design Consultant puja, JEFFREY Hidalgo 12/30 [facility] [place] [facility] Outpatient Encounter [id number] 01/16 [facility] Outpatient Encounter [id number] [facility] Outpatient Encounter [id number] [facility] Outpatient Encounter [id number] [facility] Social History Combined list of available smoking, tobacco, and other social history from Department of Defense and Veterans Affairs facilities. Social History Type Response Date Comment Source Tobacco smoking status [facility]-TOBACCO FORMER USER 11/29/2023 [facility] [place] [facility] History of tobacco use [place]-TOBACCO QUIT 15 YRS OR MORE 11/29/2023 [facility] [place] [facility] History of tobacco use [place]-TOBACCO FORMER USER 11/10/2022 [facility] [place] [facility] History of tobacco use [place]-TOBACCO FORMER USER 11/28/2021 [facility] History of tobacco use [place]-TOBACCO FORMER USER 02/28/2019 [facility] History of tobacco use QUIT TOBACCO USE IN PAST YEAR 01/30/2018 [facility] History of tobacco use QUIT TOBACCO USE IN PAST YEAR 04/02/2017 reports quitting 4-5 months ago [facility] History of tobacco use QUIT TOBACCO USE > 7 YEARS AGO 05/01/2016 Last smoked when I was 23 [facility] History of tobacco use QUIT TOBACCO USE > 7 YEARS AGO 12/21/2011 Pt. quit when he was 23 years old. [facility] History of tobacco use QUIT TOBACCO USE IN PAST YEAR 12/01/2010 Pt. quit smoking a few months ago!! [facility] Plan of Care List of future care activities from [facility] facilities. Additional future care activities may be listed in the Assessment and Plan section. Date/Time Care Activity Care Activity Detail Facili ty 01/28/2025 AMBULATORY - MEDICINE AMBULATORY - MEDICI [place] [facility] 02/04/2025 AMBULATORY - NONE AMBULATORY - NONE [email or web address] 02/27/2025 AMBULATORY - NONE AMBULATORY - NONE [place] [email or web address] 12/23/2024 Laboratory - Outside Energy Sales Representatives ry Order LIVER FUNCTION BLOOD (SST-SERUM) SP [facility] 12/23/2024 Laboratory - Outside Energy Sales Representatives ry Order ELECTROLYTE PANEL BLOOD (SST-SERUM) [facility] 01/20/2025 Consult Order COMMUNITY CARE-P ULMONARY Cons Street Light Wirer's Choice [facility] Advance Directives List of completed, amended, or rescinded Advance Directives on record at [facility] facilities. An actual copy of the Directive is not included. Date Advance Directive Provider Source 12/30/2024 ADVANCE DIRECTIVE DISCUSSION JEFFREY BECKHAM [facility] 12/09/2010 ADVANCE DIRECTIVE CARINA AVERY
--- OUTSIDE RECORDS SUMMARY | 2025-01-20 23:19 | XMS_ITS ---
Author Name [facility] [place] Organization [place] Address [address] [place] [address] Care Team Providers Care Concrete Engineering Technician Name Role Phone KAJAL RUCKER Primary Care [...] 19 MEDICAID TITLE 19 Nov 19, 2010 [id number] STEPHON BAUMANN [place] PATIENT Selected Encounter This section includes the information on record at [place] for the Encounter. Date/Time Encounter Type Encounter Description Reason Pro vider Source Jan 20, 2025 10:24 AM Outpatient Encounter COMMUNITY CARE CONSULT IHE Encounter Template Text not used by [facility] Plan of Treatment: Future Appointments (+ 6 [...] 20 appointments. The data comes from all [place] treatment facilities. Appointment Date/Time Appointment Type Appointme nt Facility Name Jan 28, 2025 12:30 PM AMBULATORY - MEDICINE [facility] Feb 04, 2025 01:00 PM AMBULATORY - NONE [place] [facility] [place] [facility] Feb 27, 2025 09:45 AM [facility] Active, Pending, and Scheduled Orders This section includes a listing of several types of active, pending, and scheduled orders, including clinic medications orders, diagnostic test orders, procedure orders and consult orders; where the start date of the order is 45 days before the date of the Encounter or 45 days after the date of theEncounter. The data comes from all [place] treatment facilities. Test Date/Time Test Type Test Details Facility Name Dec 23, 2024 12:00 AM Laboratory - Chemi stry Order LIVER FUNCTION BLOOD (SST-SERUM) [facility] Dec 23, 2024 12:00 AM Laboratory - Chemi stry Order ELECTROLYTE PANEL BLOOD (SST-SERUM) [facility] Jan 20, 2025 01:59 PM Consult Order COMMUNITY CARE-PULMONARY Cons Retail Security Professional's Choice [place] Social History: Smoking Status (Most current) and Tobacco Use (All prior to encounter date) This section includes the most current, and the historical, smoking and tobacco- related health factors from the [place] facility where the Encounter took place. Current Smoking Status This section includes the most current smoking, or tobacco-related health factor, from the [place] facility where the Encounter took place. Date/Time Current Smoking Status Comment Facil ity Nov 29, 2023 12:43 PM [facility]CO [facility] Tobacco Use History This section includes a history of the smoking, or tobacco-related health factors, that were collected on or before the date of the Encounter. The data comes from the [place] facility where the Encounter took place. Date/Time Smoking Status/Tobacco Use Comment F acility Nov 29, 2023 12:43 PM VA-TOBACCO QUIT 15 YRS OR MORE [place] [facility] [place] [facility] Nov 10, 2022 01:28 PM VA-TOBACCO FORMER USER [place] [facility] [place] [facility] Nov 10, 2022 01:28 PM VA-TOBACCO QUIT 15 YRS OR MORE [facility] Advance Directives: All historical and current Section Date Range: From patient's date of to the date document was created. This section includes ALL of a patient's completed or amended [place] Advance and Rescinded Directives. The entries below indicate that a directive exists for the patient, but an actual copy is not included with this document. The data comes from all [place] facilities. Date Advance Directives Provider Source Dec 30, 2024 ADVANCE DIRECTIVE DISCUSSION JEFFREY BECKHAM [place] Dec 09, 2010 ADVANCE DIRECTIVE CARINA AVERY SRINIVASBen Encounter Notes: All associated encounter notes This section contains the clinical notes associated to the Encounter. 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 Thank you. /mirna LUCIANO [facility] RN Signed: 01/20/2025 10:29 Receipt Acknowledged By: 01/20/2025 11:50 /ethan/ ROSALIA BARRIOS RN-BC REGISTERED NURSE 01/20/2025 ADDENDUM STATUS: COMPLETED Placed CC pulmonary continuation of care consult as requested and held for provider review. /ethan/ ROSALIA BARRIOS RN-BC REGISTERED NURSE Signed: 01/20/2025 12:02 PASTORA LUCIANO [place] [facility]
--- OUTSIDE RECORDS SUMMARY | 2025-01-20 23:19 | XMS_ITS | Encounter Summary ---
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 Date/Time Encounter Type Encounter Description Reason Provider Source Jan 23, 2024 11:45 AM OFFICE O/P EST LOW 20 MIN PRIMARY CARE/MEDICINE ICD-10-CM S01.01XS Laceration without foreign body of scalp, sequCORAZON Quintero Danisha Encounter Template Text not used by [place] Assessments - Encounter Diagnoses This section includes the primary and secondary diagnoses documented for the Encounter. Date/Time Primary/Secondary Diagnosis Diagnosis Name Provider Source Jan 23, 2024 11:44 AM PRIMARY Laceration without foreign body of scalp, CORAZON Vásquez [facility] Plan of Treatment: Future Appointments (+ 6 [...] 20 appointments. The data comes from all [place] treatment facilities. Appointment Date/Time Appointment Type Appointme nt Facility Name Jan 24, 2024 11:30 AM AMBULATORY - MEDICINE [place] [facility] [place] [facility] Feb 25, 2024 08:00 AM [facility] Feb 27, 2024 09:15 AM [facility] Feb 27, 2024 09:30 AM [facility] Mar 06, 2024 11:15 AM [facility] Mar 07, 2024 03:00 PM [facility] May 21, 2024 12:45 PM AMBULATORY - NONE [facility] [place] [facility] May 30, 2024 01:30 PM [facility] May 30, 2024 03:00 PM [facility] Jun 17, 2024 03:00 PM AMBULATORY - NONE [facility] [place] [facility] Jun 20, 2024 11:30 AM [facility] Jul 09, 2024 07:30 AM AMBULATORY - NONE [facility] [place] [facility] Jul 16, 2024 10:10 AM AMBULATORY - MEDICINE [place] [facility] [place] [facility] Jul 17, 2024 09:10 AM AMBULATORY - MEDICINE [place] [facility] [place] [facility] Vital Signs: All taken on [...] smoking, or tobacco-related health factor, from the [place] facility where the Encounter took place. Date/Time Current Smoking Status Comment Facil ity Nov 28, 2021 01:00 PM VA-TOBACCO FORMER USER [facility] Tobacco Use History This section includes a history of the smoking, or tobacco-related health factors, that were collected on or before the date of the Encounter. The data comes from the [place] facility where the Encounter took place. Date/Time Smoking Status/Tobacco Use Comment Alexandra maxwell Nov 28, 2021 01:00 PM VA-TOBACCO QUIT 15 YRS OR MORE [facility] Feb 28, 2019 11:48 AM VA-TOBACCO FORMER USER [facility] Feb 28, 2019 11:48 AM VA-TOBACCO QUIT 15 YRS OR MORE [facility] Jan 30, 2018 11:32 AM QUIT TOBACCO USE IN PAST YEAR [facility] April 02, 2017 10:33 AM QUIT TOBACCO USE IN PAST Y EAR reports quitting 4-5 months ago [facility] May 01, 2016 02:52 PM QUIT TOBACCO USE > 7 YEARS AGO Last smoked when I was 23 [facility] Dec 21, 2011 10:15 AM QUIT TOBACCO USE > 7 YEARS AGO Pt. quit when he was 23 years old. [facility] Dec 01, 2010 01:04 PM QUIT TOBACCO USE 1 -7 YEARS AGO [facility] Dec 01, 2010 01:04 PM QUIT TOBACCO USE IN PAST Y EAR Pt. quit smoking a few months ago!! [facility] Advance Directives: All historical and current Section Date Range: From patient's date of to the date document was created. This section includes ALL of a patient's completed or amended [place] Advance and Rescinded Directives. The entries below indicate that a directive exists for the patient, but an actual copy is not included with this document. The data comes from all [facility]. Date Advance Directives Provider Source Dec 30, 2024 ADVANCE DIRECTIVE DISCUSSION JEFFREY BECKHAM [facility] Dec 09, 2010 ADVANCE DIRECTIVE CARINA AVERY Encounter Notes: All associated encounter notes This section contains the clinical notes associated to the Encounter. Date/Time Encounter Note(s) Provider Source Jan 23, 2024 11:38 AM NURSE PRACTITIONER NOTE: LOCAL TITLE: NURSE PRACTIONER/SICK VISIT STANDARD TITLE: NURSE PRACTITIONER NOTE DATE OF NOTE: JAN 23, 2024@11:38 ENTRY DATE: JAN 23, 2024@11:38:12 AUTHOR: CORAZON SIMPSNO EXP COSIGNER: URGENCY: STATUS: COMPLETED NURSE PRACTIONER/SICK VISIT Has ADDENDA SICK CALL VISIT LEONOR BAUMANN is a 78 y/o DECLINED TO ANSWER MALE who presents to [facility] sick call with c/o f/u laceration left scalp. Patient fell after missing the bottom step 8 days ago. Sustained laceration to left scalp, received 7 ana. Here for staple removal. Denies pain to site VA PCP: ======= WONG [facility] VITAL SIGNS: Blood Pressure: 122/75 (01/23/2024 11:40) Pain: 0 (01/23/2024 11:40) Patient Height: 66 in [167.6 cm] (05/23/2022 15:05) Patient Weight: 156.6 lb [71.03 kg] (11/29/2023 12:38) Pulse: 72 (01/23/2024 11:40) Respiration: 16 (01/23/2024 11:40) Temperature: 97 F [36.1 C] (01/23/2024 11:40) REVIEW OF SYSTEMS: see HPI PHYSICAL EXAMINATION: General: Well-appearing in no obvious distress. Mental Status: Alert and oriented x4. Lungs: respirations easy and unlabored Integument: laceration with ana intact left frontal scalp, well approximated, dried blood present, no erythema or drainage, no s/s infection Psych: Normal mood and affect. Cooperative with exam, follows commands. ASSESSMENT/PLAN: 1. laceration left scalp - healing well without s/s infection, ana intact. OK for RN to remove today. MEDICATIONS reviewed with [facility] FOLLOW UP: Return to clinic 3-5 days if no improvement in symptoms. UPCOMING APPOINTMENTS: No data available /ethan/ CANDACE ZABALA CERTIFIED NURSE PRACTITIONER Signed: 01/23/2024 11:45 01/23/2024 ADDENDUM STATUS: COMPLETED correction 6 ana /ethan/ CANDACE ZABALA CERTIFIED NURSE PRACTITIONER Signed: 01/23/2024 11:45 CORAZON SIMPSON [facility]
--- OUTSIDE RECORDS SUMMARY | 2025-01-20 23:19 | XMS_ITS | Encounter Summary ---
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 Date/Time Encounter Type Encounter Description Reason Pro vider Source Jan 20, 2025 01:03 PM Outpatient Encounter PRIMARY CARE/MEDICINE IHE Encounter Template Text not used by [place] Plan of Treatment: Future Appointments (+ 6 months) and Future Tests (+/- 45 days) The Plan of Treatment section includes future care activities for the patient from all [place] treatmentfacilities. This section includes future appointments and future orders which are active, pending or scheduled. Future Appointments This section includes appointments that were scheduled to occur 6 months from the date of the Encounter, up to a maximum of 20 appointments. The data comes from all [place] treatment facilities. Appointment Date/Time Appointment Type Appointme nt Facility Name Jan 28, 2025 12:30 PM AMBULATORY - MEDICINE [facility] [place] Feb 04, 2025 01:00 PM AMBULATORY - NONE [place] [facility] [place] [facility] Feb 27, 2025 09:45 AM [facility] Active, Pending, and Scheduled Orders This section includes a listing of several types of active, pending, and scheduled orders, including clinic medications orders, diagnostic test orders, procedure orders and consult orders; where the start date of the order is 45 days before the date of the Encounter or 45 days after the date of theEncounter. The data comes from all [place] treatment facilities. Test Date/Time Test Type Test Details Facility Name Dec 23, 2024 12:00 AM Laboratory - Chemi stry Order LIVER FUNCTION BLOOD (SST-SERUM) [facility] Dec 23, 2024 12:00 AM Laboratory - Chemi stry Order ELECTROLYTE PANEL BLOOD (SST-SERUM) [facility] Jan 20, 2025 01:59 PM Consult Order COMMUNITY CARE-PULMONARY Cons Coal Dumping Equipment Operator's Choice [place] Social History: Smoking Status (Most current) and Tobacco Use (All prior to encounter date) This section includes the most current, and the historical, smoking and tobacco- related health factors from the [place] facility where the Encounter took place. Current Smoking Status This section includes the most current smoking, or tobacco-related health factor, from the [place] facility where the Encounter took place. Date/Time Current Smoking Status Comment Facil ity Nov 29, 2023 12:43 PM [facility] Tobacco Use History This section includes a history of the smoking, or tobacco-related health factors, that were collected on or before the date of the Encounter. The data comes from the [place] facility where the Encounter took place. Date/Time Smoking Status/Tobacco Use Comment F acility Nov 29, 2023 12:43 PM VA-TOBACCO QUIT 15 YRS OR MORE [place] [facility] [place] [facility] Nov 10, 2022 01:28 PM VA-TOBACCO FORMER USER [place] [facility] [place] [facility] Nov 10, 2022 01:28 PM VA-TOBACCO QUIT 15 YRS OR [facility] Advance Directives: All historical and current Section Date Range: From patient's date of to the date document was created. This section includes ALL of a patient's completed or amended [place] Advance and Rescinded Directives. The entries below indicate that a directive exists for the patient, but an actual copy is not included with this document. The data comes from all [place] facilities. Date Advance Directives Provider Source Dec 30, 2024 ADVANCE DIRECTIVE DISCUSSION JEFFREY BECKHAM Dec 09, 2010 ADVANCE DIRECTIVE CARINA AVERY Encounter Notes: All associated encounter notes This section contains the clinical notes associated to the Encounter. 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
--- OUTSIDE RECORDS SUMMARY | 2025-01-20 23:19 | XMS_ITS | Encounter Summary ---
Author Name [facility] [facility] [place] Address [address] [place] [id number] Care Team Providers Care Crankshaft Grinder Name Role Phone KAJAL RUCKER Primary Care [...] 19 MEDICAID TITLE 19 Nov 19, 2010 [id number] STEPHON BAUMANN [place] PATIENT Selected Encounter This section includes the information on record at [place] for the Encounter. Date/Time Encounter Type Encounter Description Reason Provider Source May 30, 2024 01:30 PM OFFICE O/P EST MOD 30 MIN PRIMARY CARE/MEDICINE ICD-10-CM I10 Essential (primary) hypertension ANATOLY CASTAÑEDA F E Encounter Template Text not used by [facility] Assessments - Encounter Diagnoses This section includes the primary and secondary diagnoses documented for the Encounter. Date/Time Primary/Secondary Diagnosis Diagnosis Name Provider Source May 30, 2024 01:30 PM PRIMARY Essential (primary) hypertension ANATOLY CASTAÑEDA F [place] May 30, 2024 01:30 PM SECONDARY Allergic rhinitis, unspecified BRAVOAANATOLY [place] May 30, 2024 01:30 PM SECONDARY Mixed hyperlipidemia ANATOLY CASTAÑEDA [place] May 30, 2024 01:30 PM SECONDARY Pulmonary fibrosis, unspecified VERONICAELIZABETHANATOLY Trevino [place] Plan of Treatment: Future Appointments (+ 6 months) and Future Tests (+/- 45 days) The Plan of Treatment section includes future care activities for the patient from all [place] [facility]. This section includes future appointments and future orders which are active, pending or scheduled. Future Appointments This section includes appointments that were scheduled to occur 6 months from the date of the Encounter, up to a maximum of 20 appointments. The data comes from all [place] treatment facilities. Appointment Date/Time Appointment Type Appointme nt Facility Name Jun 17, 2024 03:00 PM AMBULATORY - NONE [facility] Jun 20, 2024 11:30 AM AMBULATORY - MEDICINE [facility] Jul 09, 2024 07:30 AM AMBULATORY - NONE [facility] Jul 16, 2024 10:10 AM [facility] Jul 17, 2024 09:10 AM [facility] Aug 12, 2024 01:30 PM AMBULATORY - NONE [facility] Aug 19, 2024 03:00 PM AMBULATORY - MEDICINE [facility] Aug 29, 2024 08:30 AM AMBULATORY - NONE [facility] Sep 19, 2024 07:30 AM AMBULATORY - NONE [facility] Oct 15, 2024 02:00 PM AMBULATORY - NONE [facility] Nov 05, 2024 09:45 AM AMBULATORY - [facility]IC[facility] Nov 26, 2024 10:00 AM AMBULATORY - NONE [facility] Nov 26, 2024 11:00 AM [facility] Nov 26, 2024 11:30 AM [place] [facility] Vital Signs: All taken on the encounter date This section contains inpatient and outpatient Vital Signs collected on the date of the Encounter. Date/Time Temperature Pulse Blood Pressure Respiratory Rate SP02 Pain Height Weight Body Mass Index Source May 30, 2024 02:56 PM 62 121/76 95 152 25 [facility] IELD Social History: Smoking Status (Most current) and Tobacco Use (All prior to encounter date) This section includes the most current, and the historical, smoking and tobacco- related health factors from the [place] facility where the Encounter took place. Current Smoking Status This section includes the most current smoking, or tobacco-related health factor, from the [place] facility where the Encounter took place. Date/Time Current Smoking Status Comment Facil ity Nov 28, 2021 01:00 PM VA-TOBACCO FORMER USER [place] Tobacco Use History This section includes a history of the smoking, or tobacco-related health factors, that were collected on or before the date of the Encounter. The data comes from the [place] facility where the Encounter took place. Date/Time Smoking Status/Tobacco Use Comment F acility Nov 28, 2021 01:00 PM VA-TOBACCO QUIT 15 YRS OR MORE [place] Feb 28, 2019 11:48 AM VA-TOBACCO FORMER USER [place] Feb 28, 2019 11:48 AM VA-TOBACCO QUIT 15 YRS OR MORE [place] Jan 30, 2018 11:32 AM QUIT TOBACCO USE IN PAST YEAR [place] April 02, 2017 10:33 AM QUIT TOBACCO USE IN PAST Y EAR reports quitting 4-5 months ago [place] May 01, 2016 02:52 PM QUIT TOBACCO USE > 7 YEARS AGO Last smoked when I was 23 [place] Dec 21, 2011 10:15 AM QUIT TOBACCO USE > 7 YEARS AGO Pt. quit when he was 23 years old. [place] Dec 01, 2010 01:04 PM QUIT TOBACCO USE 1 -7 YEARS AGO [place] Dec 01, 2010 01:04 PM QUIT TOBACCO USE IN PAST Y EAR Pt. quit smoking a few months ago!! [place] Advance Directives: All historical and current Section Date Range: From patient's date of to the date document was created. This section includes ALL of a patient's completed or amended [place] Advance and Rescinded Directives. The entries below indicate that a directive exists for the patient, but an actual copy is not included with this document. The data comes from all [facility]. Date Advance Directives Provider Source Dec 30, 2024 ADVANCE DIRECTIVE DISCUSSION JEFFREY BECKHAM [place] Dec 09, 2010 ADVANCE DIRECTIVE CARINA AVERY Encounter Notes: All associated encounter notes This section contains the clinical notes associated to the Encounter. Date/Time Encounter Note(s) Provider Source May 30, 2024 01:08 PM PHYSICIAN NOTE: LOCAL TITLE: MD NOTE STANDARD TITLE: PHYSICIAN NOTE DATE OF NOTE: MAY 30, 2024@13:08 ENTRY DATE: MAY 30, 2024@13:08:15 AUTHOR: ANATOLY CASTAÑEDA EXP COSIGNER: URGENCY: STATUS: COMPLETED HISTORY OF PRESENT ILLNESS: first time seen , transferred from Dr Harmon 78 years old male who presents at the [facility] to meet the new PCP. Active problems: -Hyperlipidemia -Essential hypertension -BPH -Allergic rhinitis -pulmonary fibrosis -Impacted cerumen The following VA and Non-VA meds were reconciled with patient: Active Outpatient Medications (including Supplies): Issue Date Status Last Fill Active Outpatient Medications Refills Expiration === 1) ALBUTEROL 90MCG (CFC-F) 200D ORAL INHL ACTIVE Issu:06-20-23 Qty: 3 for 90 days Sig: INHALE 2 Refills: 2 Last:03-03-24 PUFFS BY MOUTH EVERY 4 HOURS NEEDED Expr:06-20-24 COUGH,WHEEZING OR SHORTNESS OF BREATH 2) ATORVASTATIN CALCIUM 80MG TAB Qty: 45 ACTIVE Issu:05-08-24 for 90 days Sig: TAKE ONE-HALF TABLET Refills: 0 Last:05-08-24 BY MOUTH ONCE DAILY AT BEDTIME FOR Expr:08-06-24 CHOLESTEROL 3) CARBOXYMETHYLCELLULOSE NA 0.5% OPH SOLN ACTIVE Issu:08-14-23 Qty: 30 for 30 days Sig: INSTILL 1 Refills: 11 Last:08-14-23 DROP INTO EACH EYE FOUR TIMES DAILY Expr:08-14-24 NEEDED 4) CELECOXIB 200MG CAP Qty: 60 for 30 days ACTIVE Issu:11-29-23 Sig: TAKE ONE CAPSULE BY MOUTH TWICE Refills: 3 Last:03-20-24 DAILY FOR ARTHRITIS Expr:11-29-24 5) DEXAMETHASONE 0.1/TOBRAMYC 0.3% OPH SUSP ACTIVE Issu:08-14-23 Qty: 5 for 10 days Sig: INSTILL 1 Refills: 1 Last:08-14-23 DROP INTO EACH EYE THREE TIMES A DAY Expr:08-14-24 6) FLUTICAS 250/SALMETEROL 50 INHL DISK 60 ACTIVE Issu:06-20-23 Qty: 3 for 90 days Sig: INHALE 1 PUFF Refills: 2 Last:03-20-24 BY MOUTH TWICE DAILY - RINSE MOUTH Expr:06-20-24 AFTER USE 7) FLUTICASONE PROP 50MCG 120D NASAL INHL ACTIVE Issu:06-20-23 Qty: 3 for 90 days Sig: INSTILL 1 Refills: 2 Last:03-03-24 SPRAY INTO EACH NOSTRIL ONCE DAILY Expr:06-20-24 PLEASE SPRAY 2 SPRAYS IN EACH NOSTRIL DAILY FOR 3-4 WEEKS , THEN DECREASE TO 1 SPRAY DAILY THEREAFTER 8) HCTZ 25MG/LOSARTAN 100MG TAB Qty: 60 ACTIVE Issu:02-11-24 for 60 days Sig: TAKE 1 TABLET BY Refills: 0 Last:05-19-24 MOUTH ONCE DAILY Expr:02-11-25 9) HYDROPHILIC (EQV EUCERIN) TOP CREAM ACTIVE Issu:01-24-24 Qty: 454 for 90 days Sig: APPLY A Refills: 1 Last:01-24-24 SMALL AMOUNT TOPICALLY ONCE DAILY TO Expr:01-24-25 DRY,CRACKED SKIN ON FEET 10) LORATADINE 10MG TAB Qty: 90 for 90 days ACTIVE Issu:02-27-24 Sig: TAKE ONE TABLET BY MOUTH ONCE Refills: 0 Last:05-19-24 DAILY FOR ALLERGY Expr:02-27-25 11) LUBRICATING (PF) OPH OINT Qty: 3 for 84 ACTIVE Issu:08-14-23 days Sig: APPLY SMALL AMOUNT INTO Refills: 1 Last:05-19-24 EACH EYE AT BEDTIME NEEDED Expr:08-14-24 12) MIRABEGRON 50MG SA TAB Qty: 90 for 90 ACTIVE Issu:11-08-23 days Sig: TAKE ONE TABLET BY MOUTH Refills: 0 Last:04-30-24 ONCE DAILY Expr:11-08-24 13) MONTELUKAST NA 10MG TAB Qty: 90 for 90 ACTIVE Issu:02-27-24 days Sig: TAKE ONE TABLET BY MOUTH Refills: 1 Last:02-27-24 ONCE DAILY FOR ASTHMA Expr:02-27-25 14) NAPHAZOLINE HCL 0.012% OPH SOLN Qty: 45 ACTIVE Issu:02-27-24 for 90 days Sig: INSTILL 1 DROP INTO Refills: 1 Last:02-27-24 EACH EYE TWICE DAILY NEEDED FOR EYE Expr:02-27-25 IRRITATION 15) TRIAMCINOLONE ACETONIDE 0.1% CREAM Qty: ACTIVE Issu:11-29-23 454 for 30 days Sig: APPLY A THIN Refills: 2 Last:11-29-23 LAYER TOPICALLY TWICE DAILY NEEDED Expr:11-29-24 ALLERGIES: ========= POLLEN, ANTIVERT LAB HISTORY: no new labs HISTORY: PERIOD OF SERVICE - [facility] FROM May TO May COMBAT SERVICE INDICATED: No REVIEW OF SYSTEMS: No fever, chills or fatigue No chest pain, shortness of breath at rest, but mild sob on exertion No cough or wheezing No abdominal pain nausea or vomiting multiple joints arthralgias No headaches or dizziness PHYSICAL EXAMINATION: WD/WN seems to be in NAD S1-S2 positive, RRR PAPI, fine crackles bilateral bases ; negative for wheezing rales or rhonchi's abdomen soft nontender to palpation No edema lower extremities AAO x3;ambulates without help Impacted cerumen bilateral ears ASSESSMENT/PLAN: -Hyperlipidemia-continue statins healthy diet and exercise as tolerated He admits of watching his diet but he does not exercise -Essential hypertension-blood pressure controlled today in office He states monitor blood pressure maybe once a month and is in normal limits -BPH-continue current medications -Allergic rhinitis-continue fluticasone and antihistaminic -pulmonary fibrosis-continue albuterol as needed and fluticasonesalmeterol twice a day -Impacted cerumen-Debrox ordered Follow-up with our PACT RN FOLLOW UP: ========= RTC -July - annual with fasting labs Today's documentation was made using voice recognition software. This note may contain spelling/grammatical errors secondary to this software. Every effort is made to correct errors, but if mistakes are found they need to be taken in context. UPCOMING APPOINTMENTS: 05/30/2024 13:30 CWM/SO/PACT EIGHT 06/17/2024 15:00 NHM DENTAL DMD 3 PM NEW 07/04/2024 11:00 CWM/NO/DENTAL/RDH1 AM 07/15/2024 13:30 NHM DENTAL DMD 3 PM NEW 07/16/2024 10:10 COM CARE-PULMONARY 08/12/2024 13:30 NHM DENTAL DMD 3 PM NEW 09/09/2024 13:30 NHM DENTAL DMD 3 PM NEW 10/07/2024 13:30 NHM DENTAL DMD 3 PM NEW 11/06/2024 13:30 NHM DENTAL DMD 3 PM NEW No barriers; Patient understands and agrees to current treatment plan. If pt has any questions, concerns, or changes in current health status he/she will call or come in to the [facility]. Active problems Medication Reconciliation: Outpatient: Has the patient been taking medications as documented in the EMLR? YES: The patient has been taking medications as documented in the EMLR. Essential Medication List for Review used to complete this medication reconciliation. INCLUDED IN THIS LIST: Alphabetical list of active outpatient prescriptions dispensed from this [facility] (local) and dispensed from another [place] or [place] facility (remote) as well as inpatient orders (local, pending and active), local clinic medications, locally documented non-VA medications, and local prescriptions that have or been discontinued in the past 90 days. - All changes in medications, including all non-VA/Herbal/OTC medications were entered into [facility]. - If there were any medications the patient should no longer take, they were discontinued. - The patient/caregiver was instructed to update this list, discard old lists, and take this list to the next appointment, whether with a VA or non-VA provider. JLV Link Data on this list may not be complete. Please check JLV. Allergies/ADRs (Tool #5) FACILITY ALLERGY/ADR -------- [facility] AN[facility] NO KNOWN ALLERGIES Med Recon Vicente (Tool #1) INCLUDED IN THIS LIST: Alphabetical list of active outpatient prescriptions dispensed from this [facility] (local) and dispensed from another [place] or [place] facility (remote) as well as inpatient orders (local pending and active), local clinic medications, locally documented non-VA medications, and local prescriptions that have or been discontinued in the past 90 days. Non-VA Meds Last Documented On: Dec 01, 2010 NOTE The display of VA prescriptions dispensed from another VA or [facility] facility (remote) is limited to active outpatient prescription entries matched to National Drug File at the originating site and may not include some items such as investigational drugs, compounds, etc. NOT INCLUDED IN THIS LIST: Medications self-entered by the patient into personal health records (i.e. [employer]) are NOT included in this list. Non-VA medications documented outside this [place], remote inpatient orders (regardless of status) and remote clinic medications are NOT included in this list. The patient and provider must always discuss medications the patient is taking, regardless of where the medication was dispensed or obtained. -- OUTPT ALBUTEROL 90MCG (CFC-F) 200D ORAL INHL (Status = Active) INHALE 2 PUFFS BY MOUTH EVERY 4 HOURS NEEDED COUGH,WHEEZING OR SHORTNESS OF BREATH Rx# [id number] Last Released: 03/04/24 Qty/Days Supply: Rx Expiration Date: 06/20/24 Refills Remainin OUTPT AMOXICILLIN 875/CLAV K 125MG TAB (Status = Discontinued) TAKE 1 TABLET BY MOUTH TWICE DAILY FOR 5 DAYS FOR INFECTION Rx# [id number] Last Released: 02/29/24 Qty/Days Supply: 08/23 Rx Expiration Date: 03/29/24 Refills Remainin OUTPT ATORVASTATIN CALCIUM 80MG TAB (Status = Discontinued) TAKE ONE-HALF TABLET BY MOUTH ONCE DAILY AT BEDTIME FOR CHOLESTEROL Rx# [id number] Last Released: 12/06/23 Qty/Days Supply: Rx Expiration Date: 04/03/24 Refills Remainin OUTPT ATORVASTATIN CALCIUM 80MG TAB (Status = Active) TAKE ONE-HALF TABLET BY MOUTH ONCE DAILY AT BEDTIME FOR CHOLESTEROL Rx# [id number] Last Released: 05/09/24 Qty/Days Supply: Rx Expiration Date: 08/06/24 Refills Remainin OUTPT ATORVASTATIN CALCIUM 80MG TAB (Status = Pending) TAKE ONE-HALF TABLET BY MOUTH ONCE DAILY AT BEDTIME FOR CHOLESTEROL Renewed from Rx# [id number] Qty/Days Supply: Login Date: 05/30/24 Refills Ordered: 1 OUTPT AZITHROMYCIN 250MG TAB (Status = Discontinued) TAKE TWO TABLETS BY MOUTH ONCE DAILY FOR 5 DAYS Rx# [id number] Last Released: 02/29/24 Qty/Days Supply: 08/23 Rx Expiration Date: 03/29/24 Refills Remainin OUTPT CARBAMIDE PEROXIDE 6.5% OTIC SOLN (Status = Pending) OTIC SOLN INSTILL FIVE DROPS INTO THE AFFECTED EAR(S) TWICE DAILY Login Date: 05/30/24 Qty/Days Supply: 08/22 Refills Ordered: 0 OUTPT CARBOXYMETHYLCELLULOSE NA 0.5% OPH SOLN (Status = Active) INSTILL 1 DROP INTO EACH EYE FOUR TIMES DAILY NEEDED Rx# [id number] Last Released: 08/14/23 Qty/Days Supply: Rx Expiration Date: 08/14/24 Refills Remainin Indication: FOR DRY EYE OUTPT CELECOXIB 200MG CAP (Status = Active) TAKE ONE CAPSULE BY MOUTH TWICE DAILY FOR ARTHRITIS Rx# [id number] Last Released: 03/20/24 Qty/Days Supply: Rx Expiration Date: 11/29/24 Refills Remainin Indication: ARTHRITIS OUTPT CETIRIZINE HCL 10MG TAB (Status = Pending) TAKE ONE TABLET BY MOUTH ONCE DAILY for allergies Login Date: 05/30/24 Qty/Days Supply: Refills Ordered: 1 OUTPT COAL TAR 0.5% SHAMPOO (Status = Pending) SHAMPOO SUFFICIENT AMOUNT TOPICALLY ONCE DAILY NEEDED Login Date: 05/30/24 Qty/Days Supply: Refills Ordered: 1 OUTPT DEXAMETHASONE 0.1/TOBRAMYC 0.3% OPH SUSP (Status = Active) INSTILL 1 DROP INTO EACH EYE THREE TIMES A DAY Rx# [id number] Last Released: 08/14/23 Qty/Days Supply: 03/28 Rx Expiration Date: 08/14/24 Refills Remainin Indication: FOR INFLAMMATION OF THE EYE OUTPT DM 10/GUAIFENESN 100MG/5ML (AF & SF) LIQ (Status = Discontinued) TAKE 5 MLS BY MOUTH EVERY 4 HOURS NEEDED FOR 14 DAYS FOR COUGH Rx# [id number] Last Released: 03/10/24 Qty/Days Supply: 120/14 Rx Expiration Date: 04/09/24 Refills Remainin OUTPT FLUTICAS 250/SALMETEROL 50 INHL DISK 60 (Status = Active) INHALE 1 PUFF BY MOUTH TWICE DAILY - RINSE MOUTH AFTER USE Rx# [id number] Last Released: 03/20/24 Qty/Days Supply: Rx Expiration Date: 06/20/24 Refills Remainin OUTPT FLUTICASONE PROP 50MCG 120D NASAL INHL (Status = Active) INSTILL 1 SPRAY INTO EACH NOSTRIL ONCE DAILY PLEASE SPRAY 2 SPRAYS IN EACH NOSTRIL DAILY FOR 3-4 WEEKS , THEN DECREASE TO 1 SPRAY DAILY THEREAFTER Rx# [id number] Last Released: 03/04/24 Qty/Days Supply: Rx Expiration Date: 06/20/24 Refills Remainin OUTPT HCTZ 25MG/LOSARTAN 100MG TAB (Status = Active) TAKE 1 TABLET BY MOUTH ONCE DAILY Rx# [id number] Last Released: 05/17/24 Qty/Days Supply: 60/60 Rx Expiration Date: 02/11/25 Refills Remainin Indication: FOR HIGH BLOOD PRESSURE OUTPT HCTZ 25MG/LOSARTAN 100MG TAB (Status = Pending) 100MG TAB TAKE 1 TABLET BY MOUTH ONCE DAILY Renewed from Rx# [id number] Qty/Days Supply: Login Date: 05/30/24 Refills Ordered: 1 OUTPT HYDROPHILIC (EQV EUCERIN) TOP CREAM (Status = Active) APPLY A SMALL AMOUNT TOPICALLY ONCE DAILY TO DRY,CRACKED SKIN ON FEET Rx# [id number] Last Released: 01/25/24 Qty/Days Supply: Rx Expiration Date: 01/24/25 Refills Remainin Indication: FOR DRY SKIN FEET OUTPT LORATADINE 10MG TAB (Status = Discontinued) TAKE ONE TABLET BY MOUTH ONCE DAILY FOR ALLERGY Rx# [id number] Last Released: 05/17/24 Qty/Days Supply: Rx Expiration Date: 02/27/25 Refills Remainin Indication: FOR ALLERGIC CONJUNCTIVITIS OUTPT LUBRICATING (PF) OPH OINT (Status = Active) APPLY SMALL AMOUNT INTO EACH EYE AT BEDTIME NEEDED Rx# [id number] Last Released: 05/20/24 Qty/Days Supply: Rx Expiration Date: 08/14/24 Refills Remainin Indication: FOR DRY EYE OUTPT MIRABEGRON 50MG SA TAB (Status = Active) TAKE ONE TABLET BY MOUTH ONCE DAILY Rx# [id number] Last Released: 04/29/24 Qty/Days Supply: Rx Expiration Date: 11/08/24 Refills Remainin OUTPT MONTELUKAST NA 10MG TAB (Status = Active) TAKE ONE TABLET BY MOUTH ONCE DAILY FOR ASTHMA Rx# [id number] Last Released: 02/27/24 Qty/Days Supply: Rx Expiration Date: 02/27/25 Refills Remainin Indication: FOR SEASONAL RUNNY NOSE OUTPT NAPHAZOLINE HCL 0.012% OPH SOLN (Status = Active) INSTILL 1 DROP INTO EACH EYE TWICE DAILY NEEDED FOR EYE IRRITATION Rx# [id number] Last Released: 02/29/24 Qty/Days Supply: Rx Expiration Date: 02/27/25 Refills Remainin Indication: FOR EYE IRRITATION OUTPT OSELTAMIVIR PO4 75MG CAP (Status = Discontinued) TAKE ONE CAPSULE BY MOUTH TWICE DAILY FOR 3 DAYS Rx# [id number] Last Released: 03/10/24 Qty/Days Supply: 04/21 Rx Expiration Date: 04/09/24 Refills Remainin Indication: FOR INFLUENZA OUTPT PREDNISONE 20MG TAB (Status = Discontinued) TAKE TWO TABLETS BY MOUTH ONCE DAILY Rx# [id number] Last Released: 03/11/24 Qty/Days Supply: 06/22 Rx Expiration Date: 04/10/24 Refills Remainin OUTPT SILDENAFIL CITRATE 25MG TAB (Status = ) TAKE ONE TABLET BY MOUTH ONCE DAILY NEEDED FOR ERECTILE DYSFUNCTION TAKE 1 HOUR PRIOR TO SEXUAL ACTIVITY Rx# [id number] Last Released: 04/27/23 Qty/Days Supply: 05/18 Rx Expiration Date: 04/27/24 Refills Remainin Indication: FOR ERECTILE DYSFUNCTION OUTPT TRIAMCINOLONE ACETONIDE 0.1% CREAM (Status = Active) APPLY A THIN LAYER TOPICALLY TWICE DAILY NEEDED Rx# [id number] Last Released: 11/30/23 Qty/Days Supply: Rx Expiration Date: 11/29/24 Refills Remainin Indication: FOR ITCHING -- SUPPLIES -- /tehan/ ANATOLY CASTAÑEDA MD PRIMARY CARE PHYSICIAN Signed: 05/30/2024 15:29 ANATOLY CASTAÑEDA [place]
--- OUTSIDE RECORDS SUMMARY | 2025-01-20 23:19 | XMS_ITS | Encounter Summary ---
Author Name [facility] [place] [place] Organization [facility] [place] Address [address] [place] [id number] Care Team Providers Care Food Safety Auditor Name Role Phone KAJAL RUCKER Primary Care [...] 19 MEDICAID TITLE 19 Nov 19, 2010 [id number] STEPHON BAUMANN [place] PATIENT Selected Encounter This section includes the information on record at [place] for the Encounter. Date/Time Encounter Type Encounter Description Reason Pro vider Source Mar 07, 2024 03:00 PM Outpatient Encounter PRIMARY CARE/MEDICINE E Encounter Template Text not used by [place] Plan of Treatment: Future Appointments (+ 6 months) and Future Tests (+/- 45 days) The Plan of Treatment section includes future care activities for the patient from all [place] treatmentfacilities. This section includes future appointments and future orders which are active, pending or scheduled. Future Appointments This section includes appointments that were scheduled to occur 6 months from the date of the Encounter, up to a maximum of 20 appointments. The data comes from all [place] treatment facilities. Appointment Date/Time Appointment Type Appointme nt Facility Name May 21, 2024 12:45 PM AMBULATORY - NONE [facility] May 30, 2024 01:30 PM [facility]ORY [facility]ICINE [facility] May 30, 2024 03:00 PM [facility]BULATORY - MEDICINE [facility] Jun 17, 2024 03:00 PM AMBULATORY - NONE [facility] Jun 20, 2024 11:30 AM AMBULATORY - MEDICINE [facility] Jul 09, 2024 07:30 AM AMBULATORY - NONE [facility] [place] Jul 16, 2024 10:10 AM [facility]BULATORY [facility]IC[facility] [place] Jul 17, 2024 09:10 AM [facility]UL[facility] [place] Aug 12, 2024 01:30 PM AMBULATORY - NONE [facility] [place] Aug 19, 2024 03:00 PM [facility]ULATORY - MEDICINE [facility] Aug 29, 2024 08:30 AM AMBULATORY - NONE [facility] Social History: Smoking Status (Most current) and Tobacco Use (All prior to encounter date) This section includes the most current, and the historical, smoking and tobacco- related health factors from the [place] facility where the Encounter took place. Current Smoking Status This section includes the most current smoking, or tobacco-related health factor, from the [place] facility where the Encounter took place. Date/Time Current Smoking Status Comment Ziyad granda Nov 28, 2021 01:00 PM VA-TOBACCO FORMER USER [facility] Tobacco Use History This section includes a history of the smoking, or tobacco-related health factors, that were collected on or before the date of the Encounter. The data comes from the [place] facility where the Encounter took place. Date/Time Smoking Status/Tobacco Use Comment F acian Nov 28, 2021 01:00 PM VA-TOBACCO QUIT 15 YRS OR MORE [facility] Feb 28, 2019 11:48 AM VA-TOBACCO FORMER USER [facility] Feb 28, 2019 11:48 AM VA-TOBACCO QUIT 15 YRS OR MORE [facility] Jan 30, 2018 11:32 AM QUIT TOBACCO USE IN PAST YEAR [facility] April 02, 2017 10:33 AM QUIT TOBACCO USE IN PAST Y EAR reports quitting 4-5 months ago [facility] May 01, 2016 02:52 PM QUIT TOBACCO USE > 7 YEARS AGO Last smoked when I was 23 [facility] Dec 21, 2011 10:15 AM QUIT TOBACCO USE > 7 YEARS AGO Pt. quit when he was 23 years old. [facility] Dec 01, 2010 01:04 PM QUIT TOBACCO USE 1 -7 YEARS AGO [facility] Dec 01, 2010 01:04 PM QUIT TOBACCO USE IN PAST Y EAR Pt. quit smoking a few months ago!! [facility] Advance Directives: All historical and current Section Date Range: From patient's date of to the date document was created. This section includes ALL of a patient's completed or amended VA Advance and Rescinded Directives. The entries below indicate that a directive exists for the patient, but an actual copy is not included with this document. The data comes from all [place] facilities. Date Advance Directives Provider Source Dec 30, 2024 ADVANCE DIRECTIVE DISCUSSION JEFFREY BECKHAM [facility] Dec 09, 2010 ADVANCE DIRECTIVE CARINA AVERY Encounter Notes: All associated encounter notes This section contains the clinical notes associated to the Encounter. Date/Time Encounter Note(s) Provider Source Mar 07, 2024 03:52 PM CLERICAL NOTE: LOCAL TITLE: APPOINTMENT NO SHOW STANDARD TITLE: CLERICAL NOTE DATE OF NOTE: MAR 07, 2024@15:52 ENTRY DATE: MAR 07, 2024@15:52:14 AUTHOR: SCARLETT DALE COSIGNER: URGENCY: STATUS: COMPLETED Patient Name: LEONOR BAUMANN Patient SSN: [id number] Date and time of Appointment No show : 03/07/24 15:00 PATIENT PHONE - [phone] PHONE NUMBER [CELLULAR] - NONE FOUND Patient's medical record was reviewed. Follow-up actions were determined and initiated: Please check/complete as applies: [X]Telephoned Directly [ ]Re-scheduled for next available appt [X]Sent a N0-show letter ( must call for appointment) [ ]Other (Emergent/Overbook, etc.): Additional Comments: Future Clinic Visits 05/21/2024 16:00 CWM/NO/DENTAL/DMD3 PM 05/30/2024 13:30 CWM/SO/PACT EIGHT 06/17/2024 15:00 CWM/NO/DENTAL/DMD3 PM 07/04/2024 11:00 CWM/NO/DENTAL/RDH1 AM 07/15/2024 13:45 CWM/NO/DENTAL/DMD3 PM 08/12/2024 13:45 CWM/NO/DENTAL/DMD3 PM 09/09/2024 13:45 CWM/NO/DENTAL/DMD3 PM 10/07/2024 13:45 CWM/NO/DENTAL/DMD3 PM /ethan/ GRACE DALE ADVANCED VOLCANOLOGY PROFESSOR Signed: 03/07/2024 15:52 GRACE DALE Mar 07, 2024 03:52 PM ADMINISTRATIVE NOT E: LOCAL TITLE: ADMINISTRATIVE NOTE STANDARD TITLE: ADMINISTRATIVE NOTE DATE OF NOTE: MAR 07, 2024@15:52 ENTRY DATE: MAR 07, 2024@15:52:34 AUTHOR: SCARLETT DALE COSIGNER: URGENCY: STATUS: COMPLETED THIS ASSOCIATE PROFESSOR OF KINESIOLOGY HAD SPOKEN TO TO RESCHEDULE F2F NO SHOWED APPT. WITH CWM/SO/PACT EIGHT PROVIDER. STATED HE TRIED CALLING EARLIER TODAY TO CANCEL APPT. STATED HE IS CURRENTLY A PATIENT AT [facility] BEING TREATED FOR FLU AND WILL CALL BACK TO RESCHEDULE F/U APPT. /es/ GRACE DALE ADVANCED VOLCANOLOGY PROFESSOR Signed: 03/07/2024 15:54 Receipt Acknowledged By: 03/11/2024 21:21 /es/ KRISTI BARRIOSN RN-BC REGISTERED NURSE 03/10/2024 08:27 /es/ MIKALA HOBSON LPN Licensed Practical Nurse 03/13/2024 11:57 /es/ ANATOLY CASTAÑEDA MD PRIMARY CARE PHYSICIAN GRACE DALE
--- OUTSIDE RECORDS SUMMARY | 2025-01-20 23:20 | XMS_ITS | Encounter Summary ---
Author Name [facility] [place] [place] Organization [place] Address [address] [place] [address] Care Team Providers Care Nursing Home Aide Name Role Phone KAJAL RUCKER Primary Care [...] 19 MEDICAID TITLE 19 Nov 19, 2010 [id number] STEPHON BAUMANN [place] PATIENT Selected Encounter This section includes the information on record at [place] for the Encounter. Date/Time Encounter Type Encounter Description Reason Provider Source May 30, 2024 03:00 PM OFFICE O/P EST MOD 30 MIN PRIMARY CARE/MEDICINE ICD-10-CM I10 Essential (primary) hypertension ANATOLY CASTAÑEDA IHDanisha Encounter Template Text not used by VA Assessments - Encounter Diagnoses This section includes the primary and secondary diagnoses documented for the Encounter. Date/Time Primary/Secondary Diagnosis Diagnosis Name Provider Source Aug 26, 2024 03:20 PM PRIMARY Essential (primary) hypertension Ben HOBSON [place] Plan of Treatment: Future Appointments (+ 6 [...] 20 appointments. The data comes from all [place] treatment facilities. Appointment Date/Time Appointment Type Appointme nt Facility Name Jun 17, 2024 03:00 PM AMBULATORY - NONE [facility] [place] [facility] Jun 20, 2024 11:30 AM [facility]ORY [facility]IC[facility] Jul 09, 2024 07:30 AM AMBULATORY - NONE [facility] [place] [facility] Jul 16, 2024 10:10 AM AMBULATORY - MEDICINE [facility] [place] [facility] Jul 17, 2024 09:10 AM AMBULATORY - MEDICINE [facility] [place] [facility] Aug 12, 2024 01:30 PM AMBULATORY - NONE [facility] [place] [facility] Aug 19, 2024 03:00 PM [facility]ORY [facility]IC[facility] Aug 29, 2024 08:30 AM AMBULATORY - NONE [facility] [place] [facility] Sep 19, 2024 07:30 AM AMBULATORY - NONE [facility] [place] [facility] Oct 15, 2024 02:00 PM AMBULATORY - NONE [facility] [place] [facility] Nov 05, 2024 09:45 AM [facility]ORY [facility]ICINE [facility] Nov 26, 2024 10:00 AM AMBULATORY - NONE [facility] [place] [facility] Nov 26, 2024 11:00 AM AMBULATORY - [place]ICINE [facility] [place] [facility] Nov 26, 2024 11:30 AM AMBULATORY - MEDICINE [place] [facility] [place] [facility] Vital Signs: All taken on the encounter date This section contains inpatient and outpatient Vital Signs collected on the date of the Encounter. Date/Time Temperature Pulse Blood Pressure Respiratory Rate SP02 Pain Height Weight Body Mass Index Source May 30, 2024 02:56 PM 62 121/76 95 152 25 [place] Social History: Smoking Status (Most current) and Tobacco Use (All prior to encounter date) This section includes the most current, and the historical, smoking and tobacco- related health factors from the [place] facility where the Encounter took place. Current Smoking Status This section includes the most current smoking, or tobacco-related health factor, from the [place] facility where the Encounter took place. Date/Time Current Smoking Status Comment Ziyad granda Nov 28, 2021 01:00 PM VA-TOBACCO FORMER USER [place] Tobacco Use History This section includes a history of the smoking, or tobacco-related health factors, that were collected on or before the date of the Encounter. The data comes from the [place] facility where the Encounter took place. Date/Time Smoking Status/Tobacco Use Comment F acility Nov 28, 2021 01:00 PM VA-TOBACCO QUIT 15 YRS OR MORE [place] Feb 28, 2019 11:48 AM VA-TOBACCO FORMER USER [place] Feb 28, 2019 11:48 AM VA-TOBACCO QUIT 15 YRS OR MORE [place] Jan 30, 2018 11:32 AM QUIT TOBACCO USE IN PAST YEAR [place] April 02, 2017 10:33 AM QUIT TOBACCO USE IN PAST Y EAR reports quitting 4-5 months ago [place] May 01, 2016 02:52 PM QUIT TOBACCO USE > 7 YEARS AGO Last smoked when I was 23 [place] Dec 21, 2011 10:15 AM QUIT TOBACCO USE > 7 YEARS AGO Pt. quit when he was 23 years old. [place] Dec 01, 2010 01:04 PM QUIT TOBACCO USE 1 -7 YEARS AGO [place] Dec 01, 2010 01:04 PM QUIT TOBACCO USE IN PAST Y EAR Pt. quit smoking a few months ago!! [place] Advance Directives: All historical and current Section Date Range: From patient's date of to the date document was created. This section includes ALL of a patient's completed or amended [place] Advance and Rescinded Directives. The entries below indicate that a directive exists for the patient, but an actual copy is not included with this document. The data comes from all [facility]. Date Advance Directives Provider Source Dec 30, 2024 ADVANCE DIRECTIVE DISCUSSION JEFFREY BECKHAM [place] Dec 09, 2010 ADVANCE DIRECTIVE CARINA AVERY Encounter Notes: All associated encounter notes This section contains the clinical notes associated to the Encounter. Date/Time Encounter Note(s) Provider Source May 30, 2024 02:56 PM PREVENTIVE MEDICIN E NURSING NOTE: LOCAL TITLE: CLINICAL REMINDERS/NURSING STANDARD TITLE: PREVENTIVE MEDICINE NURSING NOTE DATE OF NOTE: MAY 30, 2024@14:56 ENTRY DATE: MAY 30, 2024@14:56:59 AUTHOR: MIKALA HOBSON EXP COSIGNER: URGENCY: STATUS: COMPLETED COVID-19 Immunization: Refused Moderna Monovalent COVID-19 vaccine Immunization: COVID-19 (MODERNA), MRNA, LNP-S, PF, 50 MCG/0.5 ML (AGES 12+ YEARS) Refusal Reason: PATIENT DECISION Patient refuses all immunization(s) in the COVID-19 group Date Documented: 05/30/24 14:57 /ethan/ MIKALA HOBSON LPN Licensed Practical Nurse Signed: 05/30/2024 14:57 MIKALA HOBSON [place]
--- OUTSIDE RECORDS SUMMARY | 2025-01-20 23:20 | XMS_ITS | Encounter Summary ---
Author Name [facility] [place] Address [address] [place] [id number] Care Team Providers Care Case Checker Name Role Phone KAJAL RUCKER Primary Care [...] 19 MEDICAID TITLE 19 Nov 19, 2010 [id number] STEPHON BAUMANN [place] PATIENT Selected Encounter This section includes the information on record at [place] for the Encounter. Date/Time Encounter Type Encounter Description Reason Provider Source Jun 20, 2024 11:30 AM OFF/OP EST [facility] PRIMARY CARE/MEDICINE ICD-10-CM H61.23 Impacted cerumen, bilateral BG LAZAR Encounter Template Text not used by [place] Assessments - Encounter Diagnoses This section includes the primary and secondary diagnoses documented for the Encounter. Date/Time Primary/Secondary Diagnosis Diagnosis Name Provider Source Jun 24, 2024 08:51 AM PRIMARY Impacted cerumen, BG Perez Jun 24, 2024 08:51 AM SECONDARY Other specified counseling BG LAZAR Plan of Treatment: Future Appointments (+ 6 months) and Future Tests (+/- 45 days) The Plan of Treatment section includes future care activities for the patient [facility] [place] [facility] This section includes future appointments and future orders which are active, pending or scheduled. Future Appointments This section includes appointments that were scheduled to occur 6 months from the date of the Encounter, up to a maximum of 20 appointments. The data comes from all [place] treatment facilities. Appointment Date/Time Appointment Type Appointme nt Facility Name Jul 09, 2024 07:30 AM AMBULATORY - NONE [facility] [place] [facility] Jul 16, 2024 10:10 AM [place]ORY [place]IC[place] [facility] [place] [facility] Jul 17, 2024 09:10 AM AMBULATORY - [place]ICINE [place] [facility] [place] [facility] Aug 12, 2024 01:30 PM AMBULATORY - NONE [facility] [place] [facility] Aug 19, 2024 03:00 PM [facility] Aug 29, 2024 08:30 AM AMBULATORY - NONE [facility] [place] [facility] Sep 19, 2024 07:30 AM AMBULATORY - NONE [facility] [place] [facility] Oct 15, 2024 02:00 PM AMBULATORY - NONE [facility] [place] [facility] Nov 05, 2024 09:45 AM [facility]ULATORY [facility] Nov 26, 2024 10:00 AM AMBULATORY - NONE [facility] [place] [facility] Nov 26, 2024 11:00 AM AMBULATORY - [place]ICINE [place] [facility] [place] [facility] Nov 26, 2024 11:30 AM AMBULATORY [place]IC[place] [facility] [place] [facility] Dec 04, 2024 10:00 AM AMBULATORY - NONE [facility] [place] [facility] Social History: Smoking Status (Most current) and Tobacco Use (All prior to encounter date) This section includes the most current, and the historical, smoking and tobacco- related health factors from the [place] facility where the Encounter took place. Current Smoking Status This section includes the most current smoking, or tobacco-related health factor, from the [place] facility where the Encounter took place. Date/Time Current Smoking Status Simon granda Nov 28, 2021 01:00 PM VA-TOBACCO FORMER USER [facility] Tobacco Use History This section includes a history of the smoking, or tobacco-related health factors, that were collected on or before the date of the Encounter. The data comes from the [place] facility where the Encounter took place. Date/Time Smoking Status/Tobacco Use Comment F acility Nov 28, 2021 01:00 PM VA-TOBACCO QUIT 15 YRS OR MORE [facility] Feb 28, 2019 11:48 AM VA-TOBACCO FORMER USER [facility] Feb 28, 2019 11:48 AM VA-TOBACCO QUIT 15 YRS OR MORE [facility] Jan 30, 2018 11:32 AM QUIT TOBACCO USE IN PAST YEAR [facility] April 02, 2017 10:33 AM QUIT TOBACCO USE IN PAST Y EAR reports quitting 4-5 months ago [facility] May 01, 2016 02:52 PM QUIT TOBACCO USE > 7 YEARS AGO Last smoked when I was 23 [facility] Dec 21, 2011 10:15 AM QUIT TOBACCO USE > 7 YEARS AGO Pt. quit when he was 23 years old. [facility] Dec 01, 2010 01:04 PM QUIT TOBACCO USE 1 -7 YEARS AGO [facility] Dec 01, 2010 01:04 PM QUIT TOBACCO USE IN PAST Y EAR Pt. quit smoking a few months ago!! [facility] Advance Directives: All historical and current Section Date Range: From patient's date of to the date document was created. This section includes ALL of a patient's completed or amended [place] Advance and Rescinded Directives. The entries below indicate that a directive exists for the patient, but an actual copy is not included with this document. The data comes from all [facility]. Date Advance Directives Provider Source Dec 30, 2024 ADVANCE DIRECTIVE DISCUSSION JEFFREY BECKHAM [facility] Dec 09, 2010 ADVANCE DIRECTIVE CARINA AVERY Encounter Notes: All associated encounter notes This section contains the clinical notes associated to the Encounter. Date/Time Encounter Note(s) Provider Source Jun 20, 2024 04:31 PM NURSING NOTE: LOCAL TITLE: PRIMARY CARE NURSE NOTE STANDARD TITLE: NURSING NOTE DATE OF NOTE: JUN 20, 2024@16:31 ENTRY DATE: JUN 20, 2024@16:31:21 AUTHOR: BG LAZAR COSIGNER: URGENCY: STATUS: COMPLETED Patient identity was verified using two identifiers, per [place] Policy: Full Name, Date of LEONOR BAUMANN is a 78 year old who presents to the clinic for ear lavage per ANATOLY CASTAÑEDA for diagnosis of: impacted cerumen Visit Type: Clinic Scheduled Ear Irrigation: S: This is a 78 year old MALE CHIEF COMPLAINT: Impacted cerumen O: Patient referred to Nurse Clinic Specialty by: PCP Purpose was to remove cerumen by ear irrigation. Patient denies history of: Draining Ears: Yes Perforation: Yes Past Ear Surgery: Yes Current Ear Infections: Yes Patient educated about procedure and proper ear hygiene. Verbal consent given: Yes A: Impacted external auditory meatus - BILATERAL Ear lavage completed. Procedure used: Ear canal irrigated with warm water using 50 ml syringe and ear irrigation tip per protocol Results: Moderate amount of cerumen irrigated from bilateral ear canals. Procedure tolerated by [place] well. [place] denies discomfort or pain during the procedure. TM(s) visible: Yes P: RTC as needed Falls & Incontinence Screen: Falls Screen: 4. No falls within the past year. Incontinence Screen No incontinence. /ethan/ ROSALIA BARRIOS RN-BC REGISTERED NURSE Signed: 06/24/2024 08:51 [facility] [place]
--- OUTSIDE RECORDS SUMMARY | 2025-01-20 23:20 | XMS_ITS | Encounter Summary ---
Author Name [facility] [place] Organization [place] Address [address] [place] [id number] Care Team Providers Care Doorperson Name Role Phone KAJAL RUCKER Primary Care [...] 19 MEDICAID TITLE 19 Nov 19, 2010 [id number] STEPHON BAUMANN [place] PATIENT Selected Encounter This section includes the information on record at [place] for the Encounter. Date/Time Encounter Type Encounter Description Reason Provider Source Feb 27, 2024 09:15 AM OFF/OP EST MARCH [facility] PRIMARY CARE/MEDICINE ICD-10-CM R06.7 Sneezing RAMONITA SENIOR Danisha Encounter Template Text not used by [place] Assessments - Encounter Diagnoses This section includes the primary and secondary diagnoses documented for the Encounter. Date/Time Primary/Secondary Diagnosis Diagnosis Name Provider Source Feb 28, 2024 09:20 AM PRIMARY Sneezing RAMONITA SENIOR DAVID Feb 28, 2024 09:20 AM SECONDARY Cough, unspecified RAMONITA SENIOR DAVID Plan of Treatment: Future Appointments (+ 6 months) and Future Tests (+/- 45 days) The Plan of Treatment section includes future care activities for the patient [facility] [place] [facility]. This section includes future appointments and future orders which are active, pending or scheduled. Future Appointments This section includes appointments that were scheduled to occur 6 months from the date of the Encounter, up to a maximum of 20 appointments. The data comes from all [place] treatment facilities. Appointment Date/Time Appointment Type Appointme nt Facility Name Mar 06, 2024 11:15 AM AMBULATORY - MEDICINE [facility] Mar 07, 2024 03:00 PM [facility] May 21, 2024 12:45 PM AM[facility]ULATORY - NONE [place] [facility] [place] [facility] May 30, 2024 01:30 PM [facility]ORY [facility]ICINE [facility] May 30, 2024 03:00 PM [facility]ORY - [facility]ICINE [facility] Jun 17, 2024 03:00 PM AMBULATORY - NONE [place] [facility] [place] [facility] Jun 20, 2024 11:30 AM AM[facility]ORY - MEDICINE [facility] Jul 09, 2024 07:30 AM AMBULATORY - NONE [place] [facility] [place] [facility] Jul 16, 2024 10:10 AM AMBULATORY - MEDICINE [place] [facility] [place] [facility] Jul 17, 2024 09:10 AM AMBULATORY - MEDICINE [place] [facility] [place] [facility] Aug 12, 2024 01:30 PM AMBULATORY - NONE [place] [facility] [place] [facility] Aug 19, 2024 03:00 PM [facility] Vital Signs: All taken on the encounter date This section contains inpatient and outpatient Vital Signs collected on the date of the Encounter. Date/Time Temperature Pulse Blood Pressure Respiratory Rate SP02 Pain Height Weight Body Mass Index Source Feb 27, 2024 10:06 AM 97.8 84 129/72 18 93 0 [place] Social History: Smoking Status (Most current) and Tobacco Use (All prior to encounter date) This section includes the most current, and the historical, smoking and tobacco- related health factors from the [place] facility where the Encounter took place. Current Smoking Status This section includes the most current smoking, or tobacco-related health factor, from the [place] facility where the Encounter took place. Date/Time Current Smoking Status Simon granda Nov 28, 2021 01:00 PM VA-TOBACCO FORMER USER [facility] Tobacco Use History This section includes a history of the smoking, or tobacco-related health factors, that were collected on or before the date of the Encounter. The data comes from the [place] facility where the Encounter took place. Date/Time Smoking Status/Tobacco Use Comment F acility Nov 28, 2021 01:00 PM VA-TOBACCO QUIT 15 YRS OR MORE [facility] Feb 28, 2019 11:48 AM VA-TOBACCO FORMER USER [facility] Feb 28, 2019 11:48 AM VA-TOBACCO QUIT 15 YRS OR MORE [facility] Jan 30, 2018 11:32 AM QUIT TOBACCO USE IN PAST YEAR [facility] April 02, 2017 10:33 AM QUIT TOBACCO USE IN PAST Y EAR reports quitting 4-5 months ago [facility] May 01, 2016 02:52 PM QUIT TOBACCO USE > 7 YEARS AGO Last smoked when I was 23 [facility] Dec 21, 2011 10:15 AM QUIT TOBACCO USE > 7 YEARS AGO Pt. quit when he was 23 years old. [facility] Dec 01, 2010 01:04 PM QUIT TOBACCO USE 1 -7 YEARS AGO [facility] Dec 01, 2010 01:04 PM QUIT TOBACCO USE IN PAST Y EAR Pt. quit smoking a few months ago!! [facility] Advance Directives: All historical and current Section Date Range: From patient's date of to the date document was created. This section includes ALL of a patient's completed or amended [place] Advance and Rescinded Directives. The entries below indicate that a directive exists for the patient, but an actual copy is not included with this document. The data comes from all [facility]. Date Advance Directives Provider Source Dec 30, 2024 ADVANCE DIRECTIVE DISCUSSION JEFFREY BECKHAM [facility] Dec 09, 2010 ADVANCE DIRECTIVE CARINA AVERY Encounter Notes: All associated encounter notes This section contains the clinical notes associated to the Encounter. Date/Time Encounter Note(s) Provider Source Feb 27, 2024 10:10 AM PRIMARY CARE NOTE: LOCAL TITLE: WALK-IN NOTE PRIMARY CARE (T) STANDARD TITLE: PRIMARY CARE NOTE DATE OF NOTE: FEB 27, 2024@10:10 ENTRY DATE: FEB 27, 2024@10:10:54 AUTHOR: RAMONITA SENIOR COSIGNER: URGENCY: STATUS: COMPLETED Data: 78year old MALE [place] reports to Primary Care clinic for Walk-In visit. 's PCP is ANATOLY CASTAÑEDA Vet walks in to clinic with complaint of allergy symptoms. seen in sick call 2 days earlier; Looking for a change in medicaiton. Last recorded Vital Signs are: Temperature:97.8 F [36.6 C] (02/27/2024 10:06) Pulse:84 (02/27/2024 10:06) Blood Pressure:129/72 (02/27/2024 10:06) Respiration:18 (02/27/2024 10:06) Pain:0 (02/27/2024 10:06) Vet reports current allergies are:Remote Allergy Data No Remote Allergy/ADR Data available for this patient Current Medications from Active Med list include: Active Outpatient Medications (including Supplies): Active Outpatient Medications Status = 1) ALBUTEROL 90MCG (CFC-F) 200D ORAL INHL [...] TAB TAKE 1 TABLET BY MOUTH ACTIVE (S) ONCE DAILY 10) HYDROPHILIC (EQV EUCERIN) TOP CREAM APPLY A SMALL ACTIVE AMOUNT TOPICALLY ONCE DAILY TO DRY,CRACKED SKIN ON FEET 11) LUBRICATING (PF) OPH OINT APPLY SMALL AMOUNT INTO ACTIVE EACH EYE AT BEDTIME NEEDED 12) MIRABEGRON 50MG SA TAB TAKE ONE TABLET BY MOUTH ONCE ACTIVE DAILY 13) SILDENAFIL CITRATE 25MG TAB TAKE ONE TABLET BY MOUTH ACTIVE ONCE DAILY NEEDED FOR ERECTILE DYSFUNCTION TAKE 1 HOUR PRIOR TO SEXUAL ACTIVITY 14) TRIAMCINOLONE ACETONIDE 0.1% CREAM APPLY A THIN LAYER ACTIVE TOPICALLY TWICE DAILY NEEDED Action: See sick note from 02/25/24, symptoms are the same. Requests possible change in medications Current symptoms are itchy eyes, sneezing and occasional coughing. Reports dyspnea but at baseline [place] referred to Yoko Rhoades NP for evaluation. Reminders Homelessness/Food Insecurity Screen Jan 12 Home Telehealth (CCHT) Referral DUE NOW Medication Reconciliation DUE NOW RHS Screen DUE NOW RHS Screen: RHS Screen Environmental Check Upon inquiry, the individual reports that the environment is safe to proceed. Informed Consent to Screen and Document The individual consents to proceed with screening. The individual consents to documentation of responses. PRIMARY SCREEN: In the past 12 months, how often did a current or former intimate partner (e.g., boyfriend, girlfriend, , , sexual partner): 1. Scream or curse at you Never 2. Insult or talk down to you Never 3. Threaten you with harm Never 4. Physically hurt you Never 5. Force or pressure you to have sexual contact against your will, or when you were unable to say no Never ?? The HITS tool (items 1-4 above) is [place] copyright protected by Arnulfo Akers MD, and the user has full rights to use it throughout the [place] system. PRIMARY SCREEN RESULT: The Primary Screen is NEGATIVE. The individual answered never to all forms of IPV above (i.e., answered never to all 5 items) The individual accepts education and/or resources: No EDUCATION: Other: Homelessness/Food Insecurity Screen: In the past 2 months, have you been living in stable housing that you own, rent, or stay in as part of a household? Yes - Living in stable housing. Are you worried or concerned that in the next 2 months you may NOT have stable housing that you own, rent, or stay in as part of a household? No - Not worried about housing near future The reports the following: Within the past 12 months, you worried whether your food would run out before you got money to buy more. Never true Within the past 12 months, the food you bought just didn't last and you didn't have money to get more. Never true /es/ RAMONITA SENIOR RN PRIMARY CARE RN Signed: 02/28/2024 09:21 RAMONITA SENIOR [facility]
--- OUTSIDE RECORDS SUMMARY | 2025-01-20 23:20 | XMS_ITS | Encounter Summary ---
Author Name [facility] [place] Organization [place] Address [address] [place] [address] Care Team Providers Care Watch Dial Stoner Name Role Phone KAJAL RUCKER Primary Care [...] 19 MEDICAID TITLE 19 Nov 19, 2010 [id number] STEPHON BAUMANN [place] PATIENT Selected Encounter This section includes the information on record at [place] for the Encounter. Date/Time Encounter Type Encounter Description Reason Provider Source Feb 25, 2024 08:00 AM OFF/OP EST [facility] PRIMARY CARE/MEDICINE ICD-10-CM R06.7 Sneezing RAMONITA SENIOR Danisha Encounter Template Text not used by [place] Assessments - Encounter Diagnoses This section includes the primary and secondary diagnoses documented for the Encounter. Date/Time Primary/Secondary Diagnosis Diagnosis Name Provider Source Feb 25, 2024 10:42 AM PRIMARY RAMONITA Quinonez DAVID Plan of Treatment: Future Appointments (+ [...] Date/Time Appointment Type Appointme nt Facility Name Feb 27, 2024 09:15 AM AM[facility]ATORY - MEDICINE [facility] Feb 27, 2024 09:30 AM AM[facility]ORY - MEDICINE [facility] Mar 06, 2024 11:15 AM [facility] [place] [facility] Mar 07, 2024 03:00 PM [place] [facility] May 21, 2024 12:45 PM AMBULATORY - NONE [place] [facility] [place] [place] [facility] May 30, 2024 01:30 PM AM[facility]ULATORY - MEDICINE [facility] May 30, 2024 03:00 PM AMBULATORY - MEDICINE [facility] Jun 17, 2024 03:00 PM AMBULATORY - NONE [facility] [place] [place] [facility] Jun 20, 2024 11:30 AM AMBULATORY - MEDICINE [facility] Jul 09, 2024 07:30 AM AMBULATORY - NONE [facility] [place] [place] [facility] Jul 16, 2024 10:10 AM AMBULATORY - MEDICINE [facility] [place] [facility] Jul 17, 2024 09:10 AM AMBULATORY - MEDICINE [facility] [place] [facility] Aug 12, 2024 01:30 PM AMBULATORY - NONE [facility] [place] [place] [facility] Aug 19, 2024 03:00 PM [facility] Vital Signs: All taken on the encounter date This section contains inpatient and outpatient Vital Signs collected on the date of the Encounter. Date/Time Temperature Pulse Blood Pressure Respiratory Rate SP02 Pain Height Weight Body Mass Index Source Feb 25, 2024 08:38 AM 97.7 65 137/81 18 93 1 [place] Social History: Smoking Status (Most [...] 28, 2021 01:00 PM VA-TOBACCO FORMER USER [facility] Tobacco Use History This section includes a history of the smoking, or tobacco-related health factors, that were collected on or before the date of the Encounter. The data comes from the [place] facility where the Encounter took place. Date/Time Smoking Status/Tobacco Use Comment [facility] Nov 28, 2021 01:00 PM VA-TOBACCO QUIT 15 YRS OR MORE [facility] Feb 28, 2019 11:48 AM VA-TOBACCO FORMER USER [facility] Feb 28, 2019 11:48 AM VA-TOBACCO QUIT 15 YRS OR MORE [facility] Jan 30, 2018 11:32 AM QUIT TOBACCO USE IN PAST YEAR [facility] April 02, 2017 10:33 AM QUIT TOBACCO USE IN PAST Y EAR reports quitting 4-5 months ago [facility] May 01, 2016 02:52 PM QUIT TOBACCO USE > 7 YEARS AGO Last smoked when I was 23 [place] Dec 21, 2011 10:15 AM QUIT TOBACCO USE > 7 YEARS AGO Pt. quit when he was 23 years old. [place] Dec 01, 2010 01:04 PM QUIT TOBACCO USE 1 -7 YEARS AGO [facility] Dec 01, 2010 01:04 PM QUIT TOBACCO USE IN PAST Y EAR Pt. quit smoking a few months ago!! [facility] Advance Directives: All historical and current Section Date Range: From patient's date of to the date document was created. This section includes ALL of a patient's completed or amended [place] Advance and Rescinded Directives. The entries below indicate that a directive exists for the patient, but an actual copy is not included with this document. The data comes from all [facility]. Date Advance Directives Provider Source Dec 30, 2024 ADVANCE DIRECTIVE DISCUSSION JEFFREY BECKHAM [facility] Dec 09, 2010 ADVANCE DIRECTIVE CARINA AVERY Encounter Notes: All associated encounter notes This section contains the clinical notes associated to the Encounter. Date/Time Encounter Note(s) Provider Source Feb 25, 2024 10:43 AM ADDENDUM: LOCAL TITLE: Addendum STANDARD TITLE: ADDENDUM DATE OF NOTE: FEB 25, 2024@10:43:20 ENTRY DATE: FEB 25, 2024@10:43:21 AUTHOR: RAMONITA SENIOR EXP COSIGNER: URGENCY: STATUS: COMPLETED Dr Castañeda, was wondering if you could change his allergy medications. Current one is no longer effective. thank you /ethan/ RAMONITA SENIOR RN PRIMARY CARE RN Signed: 02/25/2024 10:44 Receipt Acknowledged By: 03/05/2024 22:14 /es/ ROSALIA BARRIOS RN- REGISTERED NURSE 02/28/2024 13:00 /es/ ANATOLY CASTAÑEDA MD PRIMARY CARE PHYSICIAN ====== --- Original Document --- 02/25/24 WALK-IN NOTE PRIMARY CARE (T): Data: 78year old MALE reports to Primary Care clinic for Walk-In visit. [place]'s PCP is ANATOLY CASTAÑEDA Today Vet walks in to clinic with complaint of increase in allergy symptoms and intermittent numbness and tingling of left hand. Last recorded Vital Signs are: Temperature:97.7 F [36.5 C] (02/25/2024 08:38) Pulse:65 (02/25/2024 08:38) Blood Pressure:137/81 (02/25/2024 08:38) Respiration:18 (02/25/2024 08:38) Pain:1 (02/25/2024 08:38) Vet reports current allergies are: Remote Allergy [...] LAYER ACTIVE TOPICALLY TWICE DAILY NEEDED Action: [place] reports to sick call with 2 concerns. 1. States he has had allergies for years and over the past 3 days his symptoms have been worse. reports increase sneezing, watery eyes, itchiness. Nasal discharge Reports dyspnea but states it is his baseline. Reports using his cetirizine daily. Reports it is not effective anymore. He is looking for something different. States he does this frequently over the years, Medication stops helping and he needs a change He has started using Benadryl with effect but it only lasts a few hours. Advised on safe dosing and not driving when he is taking it due to side effects of increase drowsiness. States it does not make him drowsy 2. [place] states over the past 4 days with increase in left hand and lower arm cramping, and Hand falling asleep States today with additional area under left axilla. During assessment denied pain in axilla. ROM of left arm with no pain. Advised message will be sent to his provider regarding request for new allergy medication. Advised for worsening pain to left arm or axilla to go to urgent care or ED, No provider available. [place] verbalized understanding. Reminders Homelessness/Food Insecurity Screen Jan 12 Home Telehealth (CCHT) Referral DUE NOW Medication Reconciliation DUE NOW RHS Screen DUE NOW /ethan/ RAMONITA SENIOR RN PRIMARY CARE RN Signed: 02/25/2024 10:42 02/28/2024 ADDENDUM STATUS: COMPLETED The [place] was already seen in [facility] /ethan/ ANATOLY CASTAÑEDA MD PRIMARY CARE PHYSICIAN Signed: 02/28/2024 13:00 RAMONITA SENIOR [place] Feb 25, 2024 08:44 AM PRIMARY CARE NOTE: LOCAL TITLE: WALK-IN NOTE PRIMARY CARE (T) STANDARD TITLE: PRIMARY CARE NOTE DATE OF NOTE: FEB 25, 2024@08:44 ENTRY DATE: FEB 25, 2024@08:44:47 AUTHOR: RAMONITA SENIOR EXP COSIGNER: URGENCY: STATUS: COMPLETED WALK-IN NOTE PRIMARY CARE (T) Has ADDENDA Data: 78year old MALE reports to Primary Care clinic for Walk-In visit. 's PCP is ANATOLY CASTAÑEDA Today Vet walks in to clinic with complaint of increase in allergy symptoms and intermittent numbness and tingling of left hand. Last recorded Vital Signs are: Temperature:97.7 F [36.5 C] (02/25/2024 08:38) Pulse:65 (02/25/2024 08:38) Blood Pressure:137/81 (02/25/2024 08:38) Respiration:18 (02/25/2024 08:38) Pain:1 (02/25/2024 08:38) Vet reports current allergies are: Remote Allergy [...] LAYER ACTIVE TOPICALLY TWICE DAILY NEEDED Action: [place] reports to sick call with 2 concerns. 1. States he has had allergies for years and over the past 3 days his symptoms have been worse. reports increase sneezing, watery eyes, itchiness. Nasal discharge Reports dyspnea but states it is his baseline. Reports using his cetirizine daily. Reports it is not effective anymore. He is looking for something different. States he does this frequently over the years, Medication stops helping and he needs a change He has started using Benadryl with effect but it only lasts a few hours. Advised on safe dosing and not driving when he is taking it due to side effects of increase drowsiness. States it does not make him drowsy 2. states over the past 4 days with increase in left hand and lower arm cramping, and Hand falling asleep States today with additional area under left axilla. During assessment denied pain in axilla. ROM of left arm with no pain. Advised [place] message will be sent to his provider regarding request for new allergy medication. Advised for worsening pain to left arm or axilla to go to urgent care or ED, No provider available. verbalized understanding. Reminders Homelessness/Food Insecurity Screen Jan 12 Home Telehealth (CCHT) Referral DUE NOW Medication Reconciliation DUE NOW RHS Screen DUE NOW /ethan/ RAMONITA SENIOR RN PRIMARY CARE RN Signed: 02/25/2024 10:42 02/25/2024 ADDENDUM STATUS: COMPLETED Dr Castañeda, was wondering if you could change his allergy medications. Current one is no longer effective. thank you /ethan/ RAMONITA SENIOR RN PRIMARY CARE RN Signed: 02/25/2024 10:44 Receipt Acknowledged By: * AWAITING SIGNATURE * BG LAZAR 02/28/2024 13:00 /mirna CASTAÑEDA MD PRIMARY CARE PHYSICIAN 02/28/2024 ADDENDUM STATUS: COMPLETED The was already seen in [facility] /mirna CASTAÑEDA MD PRIMARY CARE PHYSICIAN Signed: 02/28/2024 13:00 RAMONITA SENIOR [place]
--- OUTSIDE RECORDS SUMMARY | 2025-01-20 23:20 | XMS_ITS ---
Author Name [facility] [place] Organization [facility] [place] Address [address] [place] [address] Care Team Providers Care Optimization Analyst Name Role Phone KAJAL RUCKER Primary Care [...] 19 MEDICAID TITLE 19 Nov 19, 2010 [id number] STEPHON BAUMANN [place] PATIENT Selected Encounter This section includes the information on record at [place] for the Encounter. Date/Time Encounter Type Encounter Description Reason Pro vider Source Feb 05, 2024 04:27 PM Outpatient Encounter ADMIN PAT ACTIVTIES (MASNONCT) IHE Encounter Template Text not used by [place] Plan of Treatment: Future Appointments (+ 6 months) and Future Tests (+/- 45 days) The Plan of Treatment section includes future care activities for the patient from all [place] treatmentfacilities. This section includes future appointments and future orders which are active, pending or scheduled. Future Appointments This section includes appointments that were scheduled to occur 6 months from the date of the Encounter, up to a maximum of 20 appointments. The data comes from all [place] treatment facilities. Appointment Date/Time Appointment Type Appointme nt Facility Name Feb 25, 2024 08:00 AM AMBULATORY - [place]ICINE [facility] [place] Feb 27, 2024 09:15 AM AMBULATORY - MEDICINE [facility] [place] Feb 27, 2024 09:30 AM AMBULATORY - MEDICINE [facility] [place] Mar 06, 2024 11:15 AM AMB[facility]ATORY - MEDICINE [facility] [place] Mar 07, 2024 03:00 PM AMBULATORY - MEDICINE [facility] [place] May 21, 2024 12:45 PM AMBULATORY - NONE [facility] [place] [facility] May 30, 2024 01:30 PM AMB[facility]ATORY - MEDICINE [facility] [place] May 30, 2024 03:00 PM AMBULATORY - MEDICINE [facility] [place] Jun 17, 2024 03:00 PM AMBULATORY - NONE [facility] [place] [place] [facility] Jun 20, 2024 11:30 AM AMBULATORY - MEDICINE [facility] [place] Jul 09, 2024 07:30 AM AMBULATORY - NONE [facility] [place] [facility] Jul 16, 2024 10:10 AM AMBULATORY - MEDICINE [facility] [place] [facility] Jul 17, 2024 09:10 AM AMBULATORY - MEDICINE [facility] [place] [facility] Social History: Smoking Status (Most current) and Tobacco Use (All prior to encounter date) This section includes the most current, and the historical, smoking and tobacco- related health factors from the [place] facility where the Encounter took place. Current Smoking Status This section includes the most current smoking, or tobacco-related health factor, from the [place] facility where the Encounter took place. Date/Time Current Smoking Status Comment Facil ity Nov 29, 2023 12:43 PM VA-TOBACCO FORMER USER [place] [facility] [facility] Tobacco Use History This section includes a history of the smoking, or tobacco-related health factors, that were collected on or before the date of the Encounter. The data comes from the [place] facility where the Encounter took place. Date/Time Smoking Status/Tobacco Use Comment F acility Nov 29, 2023 12:43 PM VA-TOBACCO QUIT 15 YRS OR MORE [facility] [place] [facility] Nov 10, 2022 01:28 PM VA-TOBACCO FORMER USER [facility] [place] [facility] Nov 10, 2022 01:28 PM VA-TOBACCO QUIT 15 YRS OR MORE [facility] [place] [facility] Advance Directives: All historical and current Section Date Range: From patient's date of to the date document was created. This section includes ALL of a patient's completed or amended [place] Advance and Rescinded Directives. The entries below indicate that a directive exists for the patient, but an actual copy is not included with this document. The data comes from all [place] facilities. Date Advance Directives Provider Source Dec 30, 2024 ADVANCE DIRECTIVE DISCUSSION JEFFREY BECKHAM Dec 09, 2010 ADVANCE DIRECTIVE CARINA AVERY Encounter Notes: All associated encounter notes This section contains the clinical notes associated to the Encounter. Date/Time Encounter Note(s) Provider Source Feb 05, 2024 04:27 PM MEDICATION MGT NOT E: LOCAL TITLE: MEDICATION RENEWAL STANDARD TITLE: MEDICATION MGT NOTE DATE OF NOTE: FEB 05, 2024@16:27 ENTRY DATE: FEB 05, 2024@16:27:41 AUTHOR: LAM CREWS EXP COSIGNER: URGENCY: STATUS: COMPLETED If you reorder this, please do it as a 90 day supply. We are doing a cost savings initiative, and if appropriate please do the 90 day supply 9) HCTZ 25MG/LOSARTAN 100MG TAB TAKE 1 TABLET BY MOUTH ACTIVE ONCE DAILY /ethan/ LAM CREWS PHARMD CLINICAL PHARMACIST Signed: 02/05/2024 16:28 Receipt Acknowledged By: 02/11/2024 09:14 /ethan/ ANATOLY CASTAÑEDA MD PRIMARY CARE PHYSICIAN [facility]AM [facility]WS [place] [facility]
--- OUTSIDE RECORDS SUMMARY | 2025-01-20 23:20 | XMS_ITS | Encounter Summary ---
Author Name [facility] Organization [facility] Address [address] [place] [id number] Care Team Providers Care Flour Mixer Helper Name Role Phone CHAIM KAJAL Primary Care [...] 19 MEDICAID TITLE 19 Nov 19, 2010 [id number] STEPHON BAUMANN [place] PATIENT Selected Encounter This section includes the information on record at [place] for the Encounter. Date/Time Encounter Type Encounter Description Reason Provider Source Dec 30, 2024 12:58 PM PH1 ASSMT&MGMT NQHP 5-10 TELEPHONE CASE MANAGEMENT ICD-10-CM Z71.9 Counseling, unspecified JEFFREY BECKHAM Danisha Encounter Template Text not used by [place] Assessments - Encounter Diagnoses This section includes the primary and secondary diagnoses documented for the Encounter. Date/Time Primary/Secondary Diagnosis Diagnosis Name Provider Source Dec 30, 2024 12:58 PM PRIMARY Counseling, unspecified JEFFREY BECKHAM DAVID Plan of Treatment: Future Appointments (+ [...] 20 appointments. The data comes from all [facility]. Appointment Date/Time Appointment Type Appointme nt Facility Name Jan 28, 2025 12:30 PM [facility] Feb 04, 2025 01:00 PM AMBULATORY - NONE [facility] Feb 27, 2025 09:45 AM [facility] - NONE [facility] Active, Pending, and Scheduled Orders This section includes a listing of several types of active, pending, and scheduled orders, including clinic medications orders, diagnostic test orders, procedure orders and consult orders; where the start date of the order is 45 days before the date of the Encounter or 45 days after the date of theEncounter. The data comes from all [facility]. Test Date/Time Test Type Test Details Facility Name Dec 02, 2024 11:30 AM Consult Order COMMUNITY [facility]-SLEEP STUDY [facility] Deployment Engineer's [facility] Dec 23, 2024 12:00 AM Laboratory - Chemi stry Order LIVER FUNCTION BLOOD (SST-SERUM) [facility] Dec 23, 2024 12:00 AM Laboratory - Chemi stry Order ELECTROLYTE PANEL BLOOD (SST-SERUM) [facility] Jan 20, 2025 01:59 PM Consult Order COMMUNITY CARE-PULMONARY [facility] [employer] Social History: Smoking Status (Most current) and Tobacco Use (All prior to encounter date) This section includes the most current, and the historical, smoking and tobacco- related health factors from the [place] facility where the Encounter took place. Current Smoking Status This section includes the most current smoking, or tobacco-related health factor, from the [place] facility where the Encounter took place. Date/Time Current Smoking Status Comment Facil ity Nov 28, 2021 01:00 PM VA-TOBACCO FORMER USER [facility] Tobacco Use History This section includes a history of the smoking, or tobacco-related health factors, that were collected on or before the date of the Encounter. The data comes from the [place] facility where the Encounter took place. Date/Time Smoking Status/Tobacco Use Comment F acility Nov 28, 2021 01:00 PM VA-TOBACCO QUIT 15 YRS OR MORE [facility] Feb 28, 2019 11:48 AM VA-TOBACCO FORMER USER [facility] Feb 28, 2019 11:48 AM VA-TOBACCO QUIT 15 YRS OR MORE [facility] Jan 30, 2018 11:32 AM QUIT TOBACCO USE IN PAST YEAR [facility] April 02, 2017 10:33 AM QUIT TOBACCO USE IN PAST Y EAR reports quitting 4-5 months ago [facility] May 01, 2016 02:52 PM QUIT TOBACCO USE > 7 YEARS AGO Last smoked when I was 23 [facility] Dec 21, 2011 10:15 AM QUIT TOBACCO USE > 7 YEARS AGO Pt. quit when he was 23 years old. [facility] Dec 01, 2010 01:04 PM QUIT TOBACCO USE 1 -7 YEARS AGO [facility] Dec 01, 2010 01:04 PM QUIT TOBACCO USE IN PAST Y EAR Pt. quit smoking a few months ago!! [facility] Advance Directives: All historical and current Section Date Range: From patient's date of to the date document was created. This section includes ALL of a patient's completed or amended [place] Advance and Rescinded Directives. The entries below indicate that a directive exists for the patient, but an actual copy is not included with this document. The data comes from all [place] facilities. Date Advance Directives Provider Source Dec 30, 2024 ADVANCE DIRECTIVE DISCUSSION JEFFREY BECKHAM [facility] Dec 09, 2010 ADVANCE DIRECTIVE CARINA AVERY Encounter Notes: All associated encounter notes This section contains the clinical notes associated to the Encounter. Date/Time Encounter Note(s) Provider Source Dec 30, 2024 12:58 PM ADVANCE DIRECTIVE DISCUSSION: LOCAL TITLE: ADVANCE DIRECTIVE DISCUSSION STANDARD TITLE: ADVANCE DIRECTIVE DISCUSSION DATE OF NOTE: DEC 30, 2024@12:58 ENTRY DATE: DEC 30, 2024@12:59:08 AUTHOR: JEFFREY BECKHAM EXP COSIGNER: URGENCY: STATUS: COMPLETED MICHELLE reached out to [place] to follow up on resource provided to obtain a will. discussed that he has not tried to utilize the [facility]'s automatic corn grinder operator referral services and had heard about another resources on television to create a will. MICHELLE discussed information around Advanced Directives and purpose of having updated information regarding a Health Care Agent. stated that he is considering changing his Advanced Directive to his daughter. [place] stated that he would consider updating Advanced Directive at his next appointment. MICHELLE added PACT nurses for awareness. /ethan/ JANNY Russo, ENAMEL PULVERIZER Window Shade Cutter Signed: 12/30/2024 13:22 Receipt Acknowledged By: 01/01/2025 14:25 /es/ KRISTI BARRIOSN RN-BC REGISTERED NURSE 12/31/2024 09:27 /ethan/ MIKALA HOBSON LPN Licensed Practical Nurse JEFFREY BECKHAM
--- OUTSIDE RECORDS SUMMARY | 2025-01-20 23:20 | XMS_ITS | Encounter Summary ---
Author Name [facility] ([place] [facility] Address [address] [place] [id number] Care Team Providers Care Manufacturing Accountant Name Role Phone DEVINRICHAR THOMASRALPHROGERIO Primary Care [...] 19 MEDICAID TITLE 19 Nov 19, 2010 [id number] STEPHON BAUMANN [place] PATIENT Selected Encounter This section includes the information on record at [place] for the Encounter. Date/Time Encounter Type Encounter Description Reason Provider Source Aug 19, 2024 03:00 PM OFFICE O/P EST MOD 30 MIN PRIMARY CARE/MEDICINE ICD-10-CM I10 Essential (primary) hypertension STEANATOLY BARAJAS Danisha Encounter Template Text not used by [facility] Assessments - Encounter Diagnoses This section includes the primary and secondary diagnoses documented for the Encounter. Date/Time Primary/Secondary Diagnosis Diagnosis Name Provider Source Aug 19, 2024 03:33 PM PRIMARY Essential (primary) hypertension ANATOLY CASTAÑEDA DAVID Aug 19, 2024 03:33 PM SECONDARY Benign prostatic hyperplasia without lower urinry tract symp STEANATOLY BARAJAS [place] Aug 19, 2024 03:33 PM SECONDARY Gastro-esophageal reflux disease without esophagitis ANATOLY CASTAÑEDA [place] Aug 19, 2024 03:33 PM SECONDARY Mixed hyperlipidemia VERONICALEAANATOLY [facility] Aug 19, 2024 03:33 PM SECONDARY Prediabetes VERONICALEANATOLY Trevino [facility] Aug 19, 2024 03:33 PM SECONDARY Pulmonary fibrosis, unspecified ANATOLY CASTAÑEDA [place] Plan of Treatment: Future Appointments (+ 6 months) and Future Tests (+/- 45 days) The Plan of Treatment section includes future care activities for the patient [facility] [place] [facility] This section includes future appointments and future orders which are active, pending or scheduled. Future Appointments This section includes appointments that were scheduled to occur 6 months from the date of the Encounter, up to a maximum of 20 appointments. The data comes from all [place] treatment facilities. Appointment Date/Time Appointment Type Appointme nt Facility Name Aug 29, 2024 08:30 AM AMBULATORY [facility] NONE [facility] Sep 19, 2024 07:30 AM AMBULATORY - NONE [facility] Oct 15, 2024 02:00 PM AMBULATORY - NONE [facility] Nov 05, 2024 09:45 AM [facility] Nov 26, 2024 10:00 AM AMBULATORY - NONE [facility] Nov 26, 2024 11:00 AM AMBULATORY - MEDICINE [facility] [place] Nov 26, 2024 11:30 AM AMBULATORY - MEDICINE [place] [facility] [place] Dec 04, 2024 10:00 AM AMBULATORY - NONE [facility] Jan 28, 2025 12:30 PM AMBULATORY - MEDICINE [facility] Feb 04, 2025 01:00 PM AMBULATORY - NONE [facility] Lab Results: +/- 30 days of the encounter This section includes the Chemistry and Hematology Lab Results on record with [place] for the patient. Radiology Reports and Pathology Reports are provided separately, in subsequent sections. Lab Results This section contains the Chemistry/Hematology Results that were resulted 30 days before or 30 daysafter the date of the Encounter. Date/Time Source Result Type Result - Unit Interpretation Reference Range Comment Aug 12, 2024 08:11 AM [facility] TSH Specimen Type: SERUM No comment entered. Ordering Provider: ANATOLY CASTAÑEDA Report Released Date/Time: Aug 07, 2024 08:33 AM Reporting Lab: [address] [address] Performing Lab: [facility] [address] [address] TSH 2.07 u[IU]/mL 0.35-5.00 Aug 12, 2024 08:11 AM [facility] LIPID PANEL FASTING Specimen Type: SERUM No comment entered. Ordering Provider: ANATOLY CASTAÑEDA Report Released Date/Time: Aug 07, 2024 08:33 AM Reporting Lab: [address] [address] Performing Lab: [address] [address] CHOLESTEROL 119 mg/dL TRIGLYCERIDE 62 mg/dL 0-150 LDL calculated 67 mg/dL 0-129 CHOL/HDL 3.0 HDL CHOLESTEROL 40 mg/dL 40-60 Aug 12, 2024 08:11 AM [facility] BASIC METABOLIC PANEL (fasting) Specime n Type: SERUM No comment entered. Ordering Provider: ANATOLY CASTAÑEDA Report Released Date/Time: Aug 07, 2024 08:33 AM Reporting Lab: [address] [address] Performing Lab: [address] [address] UREA NITROGEN 12 mg/dL 7-25 GLUCOSE 107 mg/dL H 65-100 SODIUM 132 mmol/L L 135-145 POTASSIUM 4.3 mmol/L 3.5-5.0 CHLORIDE 97 mmol/L L 100-110 CO2 27 meq/L 20-30 CREATININE, Serum 0.84 mg/dL 0.50-1.40 eGFR(CKD-EPI 2020) 90 mL/min >60 Aug 12, 2024 08:11 AM [facility] LIVER FUNCTION Specimen Type: SERUM Comment: Hemolysis present analysis cannot be performed. Hemolysis present may falsly elevate Potassium Total and Direct Bili, Iron, AST, %Fe. BILIRUBIN, TOTAL reported incorrectly as 1.2 by [[id number] ]. Changed to comment on Aug 12, 2024@11:39 by [[id number] ]. BILIRUBIN, DIRECT reported incorrectly as 0.4 by [[id number] ]. Changed to comment on Aug 12, 2024@11:39 by [[id number] ]. Ordering Provider: ANATOLY CASTAÑEDA Report Released Date/Time: Aug 07, 2024 08:33 AM Reporting Lab: [address] [address] Performing Lab: [address] [address] PROTEIN,TOTAL 8.1 g/dL 6.0-8.3 ALBUMIN 4.4 g/dL 3.5-5.0 ALKALINE PHOSPHATASE 68 U/L 40-150 AST 52 U/L H 5-34 ALT 85 U/L H BILIRUBIN, TOTAL comment mg/dL 0.2-1.2 BILIRUBIN, DIRECT comment mg/dL 0-0.5 Aug 12, 2024 08:11 AM [facility] CBC AND DIFF (AUTO) Specimen Type: BLOOD No comment entered. Ordering Provider: ANATOLY CASTAÑEDA Report Released Date/Time: Aug 07, 2024 08:33 AM Reporting Lab: [address] [address] Performing Lab: [address] [address] WBC 10.65 10*3/uL 4.50-11.00 RBC 6.09 10*6/uL H 4.23-5.66 HGB 18.0 g/dL H 12.8-17 HCT 52.1 H 39.2-50.4 MCV 85.6 fL 82-99 MCHC 34.5 g/dL 30.8-35.1 PLT 126 10*3/uL L 140-360 RDW-CV 13.6 12.0-16.0 MONO, ABS 0.74 10*3/uL 0.30-1.10 MCH 29.6 pg 26.2-32.6 NEUT % 44.3 43.7-75.8 LYMPH % 44.1 H 14.0-42.3 MONO % 6.9 5.1-13.7 EOS % 3.5 0.4-6.8 BASO % 1.0 0.1-2.0 NEUT, ABS 4.71 10*3/uL 2.20-7.60 LYMPH, ABS 4.70 10*3/uL H 1.00-3.20 EOS, ABS 0.37 10*3/uL 0.03-0.44 BASO, ABS 0.11 10*3/uL 0.01-0.13 IMMATURE GRAN % 0.2 0.0-0.7 IMMATURE GRAN, ABS 0.02 10*3/uL 0.00-0.06 NRBC % 0.0 0.0-0.0 NRBC, ABS 0.00 10*3/uL 0.00-0.00 Vital Signs: All taken on the encounter date This section contains inpatient and outpatient Vital Signs collected on the date of the Encounter. Date/Time Temperature Pulse Blood Pressure Respiratory Rate SP02 Pain Height Weight Body Mass Index Source Aug 19, 2024 03:01 PM 64 137/84 94 161 26 [facility] IE Social History: Smoking Status (Most current) and [...] 28, 2021 01:00 PM VA-TOBACCO FORMER USER [facility] Tobacco Use History This section includes a history of the smoking, or tobacco-related health factors, that were collected on or before the date of the Encounter. The data comes from the [place] facility where the Encounter took place. Date/Time Smoking Status/Tobacco Use Comment F acian Nov 28, 2021 01:00 PM VA-TOBACCO QUIT 15 YRS OR MORE [facility] Feb 28, 2019 11:48 AM VA-TOBACCO FORMER USER [facility] Feb 28, 2019 11:48 AM VA-TOBACCO QUIT 15 YRS OR MORE [facility] Jan 30, 2018 11:32 AM QUIT TOBACCO USE IN PAST YEAR [facility] April 02, 2017 10:33 AM QUIT TOBACCO USE IN PAST Y EAR reports quitting 4-5 months ago [facility] May 01, 2016 02:52 PM QUIT TOBACCO USE > 7 YEARS AGO Last smoked when I was 23 [facility] Dec 21, 2011 10:15 AM QUIT TOBACCO USE > 7 YEARS AGO Pt. quit when he was 23 years old. [facility] Dec 01, 2010 01:04 PM QUIT TOBACCO USE 1 -7 YEARS AGO [facility] Dec 01, 2010 01:04 PM QUIT TOBACCO USE IN PAST Y EAR Pt. quit smoking a few months ago!! [facility] Advance Directives: All historical and current Section [...] 30, 2024 ADVANCE DIRECTIVE DISCUSSION JEFFREY BECKHAM [facility] Dec 09, 2010 ADVANCE DIRECTIVE CARINA AVERY Encounter Notes: All associated encounter notes This section contains the clinical notes associated to the Encounter. Date/Time Encounter Note(s) Provider Source Aug 19, 2024 01:05 PM PHYSICIAN NOTE: LOCAL TITLE: MD NOTE STANDARD TITLE: PHYSICIAN NOTE DATE OF NOTE: AUG 19, 2024@13:05 ENTRY DATE: AUG 19, 2024@13:05:19 AUTHOR: ANATOLY CASTAÑEDA EXP COSIGNER: URGENCY: STATUS: COMPLETED HISTORY OF PRESENT ILLNESS: LEONOR BAUMANN, is a 79 yo MALE Elliott, who presents at the [facility] for follow up visit for chronic medical conditions. Active problems - Computerized Problem List is the source for the following: -Essential hypertension -Hyperlipidemia -BPH -Mild elevated liver function tests -Prediabetes -GERD -Pulmonary fibrosis The following VA and Non-VA meds were reconciled with patient: Active Outpatient Medications (including Supplies): Issue Date Status Last Fill Active Outpatient Medications Refills Expiration ======= 1) ATORVASTATIN CALCIUM 80MG TAB Qty: 45 ACTIVE Issu:05-30-24 for 90 days Sig: TAKE ONE-HALF TABLET Refills: 1 Last:07-27-24 BY MOUTH ONCE DAILY AT BEDTIME FOR Expr:05-31-25 CHOLESTEROL 2) CELECOXIB 200MG CAP Qty: 60 for 30 days ACTIVE Issu:11-29-23 Sig: TAKE ONE CAPSULE BY MOUTH TWICE Refills: 2 Last:07-07-24 DAILY FOR ARTHRITIS Expr:11-29-24 3) COAL TAR 0.5% SHAMPOO Qty: 255 for 90 ACTIVE Issu:05-30-24 days Sig: SHAMPOO SUFFICIENT AMOUNT Refills: 1 Last:05-30-24 TOPICALLY ONCE DAILY NEEDED FOR Expr:05-31-25 SEBORRHEIC DERMATITIS 4) FINASTERIDE 5MG TAB Qty: 90 for 90 days ACTIVE Issu:07-31-24 Sig: TAKE ONE TABLET BY MOUTH ONCE Refills: 1 Last:08-01-24 DAILY DIRECTED BY PROVIDER Expr:08-01-25 5) FLUTICAS 250/SALMETEROL 50 INHL DISK 60 ACTIVE Issu:07-16-24 Qty: 3 for 90 days Sig: INHALE 1 PUFF Refills: 3 Last:07-16-24 BY MOUTH TWICE DAILY - RINSE MOUTH Expr:07-17-25 AFTER USE 6) FLUTICASONE PROP 50MCG 120D NASAL INHL ACTIVE Issu:07-16-24 Qty: 3 for 90 days Sig: INSTILL 1 Refills: 3 Last:07-16-24 SPRAY INTO EACH NOSTRIL ONCE DAILY FOR Expr:07-17-25 NASAL IRRITATION/INFLAMMATION 7) HCTZ 25MG/LOSARTAN 100MG TAB Qty: 90 ACTIVE Issu:05-30-24 for 90 days Sig: TAKE 1 TABLET BY Refills: 1 Last:07-08-24 MOUTH ONCE DAILY Expr:05-31-25 8) HYDROPHILIC (EQV EUCERIN) TOP CREAM ACTIVE Issu:01-24-24 Qty: 454 for 90 days Sig: APPLY A Refills: 1 Last:01-24-24 SMALL AMOUNT TOPICALLY ONCE DAILY TO Expr:01-24-25 DRY,CRACKED SKIN ON FEET 9) LORATADINE 10MG TAB Qty: 90 for 90 days ACTIVE Issu:07-03-24 Sig: TAKE ONE TABLET BY MOUTH ONCE Refills: 1 Last:08-15-24 DAILY FOR ALLERGY Expr:07-04-25 10) MIRABEGRON 50MG SA TAB Qty: 90 for 90 ACTIVE Issu:07-07-24 days Sig: TAKE ONE TABLET BY MOUTH Refills: 3 Last:07-30-24 ONCE DAILY Expr:07-08-25 11) MONTELUKAST NA 10MG TAB Qty: 90 for 90 ACTIVE Issu:02-27-24 days Sig: TAKE ONE TABLET BY MOUTH Refills: 1 Last:02-27-24 ONCE DAILY FOR ASTHMA Expr:02-27-25 12) NAPHAZOLINE HCL 0.012% OPH SOLN Qty: 45 ACTIVE Issu:02-27-24 for 90 days Sig: INSTILL 1 DROP INTO Refills: 1 Last:02-27-24 EACH EYE TWICE DAILY NEEDED FOR EYE Expr:02-27-25 IRRITATION 13) TRIAMCINOLONE ACETONIDE 0.1% CREAM Qty: ACTIVE Issu:11-29-23 454 for 30 days Sig: APPLY A THIN Refills: 2 Last:11-29-23 LAYER TOPICALLY TWICE DAILY NEEDED Expr:11-29-24 ALLERGIES: ========= POLLEN, ANTIVERT LAB HISTORY: Glucose level 107 with hemoglobin A1c 5.8 coming from 6, sodium 132 and chloride 97, the rest of BMP and GFRnormal limits AST 52 ALT 85 Lipids, TSHnormal limits Hemoglobin 18 coming from 17.4 and platelets 126 coming from 108 HISTORY: PERIOD OF SERVICE - Red Stamp FROM May TO May COMBAT SERVICE INDICATED: No REVIEW OF SYSTEMS: No fever, chills, No chest pain shortness of breath at rest , but chronic mild sob with exertion No cough or wheezing No abdominal pain nausea or vomiting positive for chronic nocturia No headaches or dizziness PHYSICAL EXAMINATION: WD/overweight Elliott seems to be in NAD S1-S2 positive, RRR PAPI, CTA bilateral Abdomen soft nontender to palpation No edema lower extremities AAO x3; ambulates without ASSESSMENT/PLAN: -Essential hypertension blood pressure controlled today in office He states monitor his blood pressure 3-4 times a month and his systolic blood pressure usually 130s Continue current medications low-salt diet and exercise as tolerated He states walks like 15 minutes daily Advised to increase to a total of 150 minutes moderate activity weekly -Hyperlipidemia-continue statins healthy diet and exercise as tolerated -BPH-continue current medications -GERD-on PPI -Pulmonary fibrosis-continue albuterol as needed and every day fluticasone salmeterol -Prediabetes-hemoglobin A1c 5.8 coming from 6 Advised to rest, hydrate and diet and exercise as tolerated -Mild elevated liver function tests-to repeat liver function tests with next appointment If worsening he may need abdominal ultrasound [facility] 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 This note may contain spelling/grammatical errors secondary to this software. Every effort is made to correct errors, but if mistakes are found they need to be taken in context. UPCOMING APPOINTMENTS: 08/19/2024 15:00 CWM/SO/PACT EIGHT 08/29/2024 08:30 [facility] DENT[facility] RDH 2 AM NEW 10/09/2024 07:30 [facility] DENT[facility] DMD 3 AM 11/26/2024 10:00 [facility] D[facility] DMD 3 AM 12/04/2024 10:00 [facility] DMD 3 AM No barriers; Patient understands and agrees to current treatment plan. If pt has any questions, concerns, or changes in current health status he/she will call or come in to the VA. Medication Reconciliation: Outpatient: Has the patient been taking medications as documented in the EMLR? YES: The patient has been taking medications as documented in the EMLR. Essential Medication List for Review used to complete this medication reconciliation. INCLUDED IN THIS LIST: Alphabetical list of active outpatient prescriptions dispensed from this [place] (local) and dispensed from another [place] or DoD facility (remote) as well as [...] ANTIVERT [facility] NO KNOWN ALLERGIES Med Recon NoGlossary (Tool #1) INCLUDED IN THIS LIST: Alphabetical list of active outpatient prescriptions dispensed from this VA (local) and dispensed from another VA or DoD facility (remote) as well as [...] the patient into personal health records (i.e. [employer]) are NOT included in this list. Non-VA medications documented outside this [place], remote inpatient orders (regardless of status) and remote clinic medications are NOT included in this list. The patient and provider must always discuss medications the patient is taking, regardless of where the medication was dispensed or obtained. ------ OUTPT ALBUTEROL 90MCG (CFC-F) 200D ORAL INHL (Status = ) INHALE 2 PUFFS BY MOUTH EVERY 4 HOURS NEEDED COUGH,WHEEZING OR SHORTNESS OF BREATH Rx# [id number] Last Released: 03/04/24 Qty/Days Supply: Rx Expiration Date: 06/20/24 Refills Remainin OUTPT ATORVASTATIN CALCIUM 80MG TAB (Status = Discontinued) TAKE ONE-HALF TABLET BY MOUTH ONCE DAILY AT BEDTIME FOR CHOLESTEROL Rx# [id number] Last Released: 05/09/24 Qty/Days Supply: Rx Expiration Date: 08/06/24 Refills Remainin OUTPT ATORVASTATIN CALCIUM 80MG TAB (Status = Active) TAKE ONE-HALF TABLET BY MOUTH ONCE DAILY AT BEDTIME FOR CHOLESTEROL Rx# [id number] Last Released: 07/25/24 Qty/Days Supply: Rx Expiration Date: 05/31/25 Refills Remainin OUTPT CARBAMIDE PEROXIDE 6.5% OTIC SOLN (Status = ) INSTILL 5 DROPS INTO THE AFFECTED EAR(S) TWICE DAILY FOR EAR WAX BLOCKAGE Rx# [id number] Last Released: 06/04/24 Qty/Days Supply: 03/03 Rx Expiration Date: 06/29/24 Refills Remainin Indication: FOR EAR WAX BLOCKAGE OUTPT CARBOXYMETHYLCELLULOSE NA 0.5% OPH SOLN (Status = ) INSTILL 1 DROP INTO EACH EYE FOUR TIMES DAILY NEEDED Rx# [id number] Last Released: 08/14/23 Qty/Days Supply: Rx Expiration Date: 08/14/24 Refills Remainin Indication: FOR DRY EYE OUTPT CELECOXIB 200MG CAP (Status = Active) TAKE ONE CAPSULE BY MOUTH TWICE DAILY FOR ARTHRITIS Rx# [id number] Last Released: 07/07/24 Qty/Days Supply: Rx Expiration Date: 11/29/24 Refills Remainin Indication: ARTHRITIS OUTPT CETIRIZINE HCL 10MG TAB (Status = Discontinued) TAKE ONE TABLET BY MOUTH ONCE DAILY FOR ALLERGIES Rx# [id number] Last Released: 06/04/24 Qty/Days Supply: Rx Expiration Date: 05/31/25 Refills Remainin Indication: FOR ALLERGIES OUTPT COAL TAR 0.5% SHAMPOO (Status = Active) SHAMPOO SUFFICIENT AMOUNT TOPICALLY ONCE DAILY NEEDED FOR SEBORRHEIC DERMATITIS Rx# [id number] Last Released: 06/04/24 Qty/Days Supply: Rx Expiration Date: 05/31/25 Refills Remainin Indication: FOR SEBORRHEIC DERMATITIS OUTPT DEXAMETHASONE 0.1/TOBRAMYC 0.3% OPH SUSP (Status = ) INSTILL 1 DROP INTO EACH EYE THREE TIMES A DAY Rx# [id number] Last Released: 08/14/23 Qty/Days Supply: 03/28 Rx Expiration Date: 08/14/24 Refills Remainin Indication: FOR INFLAMMATION OF THE EYE OUTPT FINASTERIDE 5MG TAB (Status = Active) TAKE ONE TABLET BY MOUTH ONCE DAILY DIRECTED BY PROVIDER Rx# [id number] Last Released: 08/01/24 Qty/Days Supply: Rx Expiration Date: 08/01/25 Refills Remainin OUTPT FLUTICAS 250/SALMETEROL 50 INHL DISK 60 (Status = ) INHALE 1 PUFF BY MOUTH TWICE DAILY - RINSE MOUTH AFTER USE Rx# [id number] Last Released: 03/20/24 Qty/Days Supply: Rx Expiration Date: 06/20/24 Refills Remainin OUTPT FLUTICAS 250/SALMETEROL 50 INHL DISK 60 (Status = Active) INHALE 1 PUFF BY MOUTH TWICE DAILY - RINSE MOUTH AFTER USE Rx# [id number] Last Released: 07/16/24 Qty/Days Supply: Rx Expiration Date: 07/17/25 Refills Remainin OUTPT FLUTICASONE PROP 50MCG 120D NASAL INHL (Status = ) INSTILL 1 SPRAY INTO EACH NOSTRIL ONCE DAILY PLEASE SPRAY 2 SPRAYS IN EACH NOSTRIL DAILY FOR 3-4 WEEKS , THEN DECREASE TO 1 SPRAY DAILY THEREAFTER Rx# [id number] Last Released: 03/04/24 Qty/Days Supply: Rx Expiration Date: 06/20/24 Refills Remainin OUTPT FLUTICASONE PROP 50MCG 120D NASAL INHL (Status = Active) INSTILL 1 SPRAY INTO EACH NOSTRIL ONCE DAILY FOR NASAL IRRITATION/INFLAMMATION Rx# [id number] Last Released: 07/16/24 Qty/Days Supply: Rx Expiration Date: 07/17/25 Refills Remainin Indication: FOR NASAL IRRITATION/INFLAMMATION OUTPT HCTZ 25MG/LOSARTAN 100MG TAB (Status = Discontinued) TAKE 1 TABLET BY MOUTH ONCE DAILY Rx# [id number] Last Released: 05/17/24 Qty/Days Supply: 60/60 Rx Expiration Date: 02/11/25 Refills Remainin Indication: FOR HIGH BLOOD PRESSURE OUTPT HCTZ 25MG/LOSARTAN 100MG TAB (Status = Active) TAKE 1 TABLET BY MOUTH ONCE DAILY Rx# [id number] Last Released: 06/30/24 Qty/Days Supply: Rx Expiration Date: 05/31/25 Refills Remainin Indication: FOR HIGH BLOOD PRESSURE OUTPT HYDROPHILIC (EQV EUCERIN) TOP CREAM (Status = Active) APPLY A SMALL AMOUNT TOPICALLY ONCE DAILY TO DRY,CRACKED SKIN ON FEET Rx# [id number] Last Released: 01/25/24 Qty/Days Supply: Rx Expiration Date: 01/24/25 Refills Remainin Indication: FOR DRY SKIN FEET OUTPT LORATADINE 10MG TAB (Status = Discontinued) TAKE ONE TABLET BY MOUTH ONCE DAILY FOR ALLERGY Rx# [id number] Last Released: 05/17/24 Qty/Days Supply: Rx Expiration Date: 02/27/25 Refills Remainin Indication: FOR ALLERGIC CONJUNCTIVITIS OUTPT LORATADINE 10MG TAB (Status = Active) TAKE ONE TABLET BY MOUTH ONCE DAILY FOR ALLERGY Rx# [id number] Last Released: 08/08/24 Qty/Days Supply: Rx Expiration Date: 07/04/25 Refills Remainin Indication: FOR ALLERGIC CONJUNCTIVITIS OUTPT LUBRICATING (PF) OPH OINT (Status = ) APPLY SMALL AMOUNT INTO EACH EYE AT BEDTIME NEEDED Rx# [id number] Last Released: 05/20/24 Qty/Days Supply: Rx Expiration Date: 08/14/24 Refills Remainin Indication: FOR DRY EYE OUTPT MIRABEGRON 50MG SA TAB (Status = Discontinued) TAKE ONE TABLET BY MOUTH ONCE DAILY Rx# [id number] Last Released: 04/29/24 Qty/Days Supply: Rx Expiration Date: 11/08/24 Refills Remainin OUTPT MIRABEGRON 50MG SA TAB (Status = Active) TAKE ONE TABLET BY MOUTH ONCE DAILY Rx# [id number] Last Released: 07/25/24 Qty/Days Supply: Rx Expiration Date: 07/08/25 Refills Remainin OUTPT MONTELUKAST NA 10MG TAB (Status = Active) TAKE ONE TABLET BY MOUTH ONCE DAILY FOR ASTHMA Rx# [id number] Last Released: 02/27/24 Qty/Days Supply: Rx Expiration Date: 02/27/25 Refills Remainin Indication: FOR SEASONAL RUNNY NOSE OUTPT NAPHAZOLINE HCL 0.012% OPH SOLN (Status = Active) INSTILL 1 DROP INTO EACH EYE TWICE DAILY NEEDED FOR EYE IRRITATION Rx# [id number] Last Released: 02/29/24 Qty/Days Supply: Rx Expiration Date: 02/27/25 Refills Remainin Indication: FOR EYE IRRITATION OUTPT TRIAMCINOLONE ACETONIDE 0.1% CREAM (Status = Active) APPLY A THIN LAYER TOPICALLY TWICE DAILY NEEDED Rx# [id number] Last Released: 11/30/23 Qty/Days Supply: 454/30 Rx Expiration Date: 11/29/24 Refills Remainin Indication: FOR ITCHING ------ SUPPLIES ------ /ethan/ ANATOLY CASTAÑEDA MD PRIMARY CARE PHYSICIAN Signed: 08/19/2024 15:33 ANATOLY CASTAÑEDA [facility] Aug 11, 2024 10:14 AM ADMINISTRATIVE NOT E: LOCAL TITLE: ADMINISTRATIVE NOTE STANDARD TITLE: ADMINISTRATIVE NOTE DATE OF NOTE: AUG 11, 2024@10:14 ENTRY DATE: AUG 11, 2024@10:14:13 AUTHOR: ANDRY FOSS COSIGNER: URGENCY: STATUS: COMPLETED [facility] [address] [place] [phone] * [address] [address] Date: AUG 11, 2024 re: This is a reminder of your upcoming PCP appt with ANATOLY CASTAÑEDA. Appointment Date: Aug@15:00 Appointment Type: In-person visit (X)Fasting blood work NON fasting blood work CONFIRMED APPT AND LABWORK WITH THE Sincerely, Office Staff for: ANATOLY CASTAÑEDA Primary Care Provider [facility] [address] [address] T [phone] F [phone] Upcoming Appointments: 08/12/2024 13:30 [facility] DMD 3 PM 08/19/2024 15:00 CWM/SO/PACT EIGHT [facility] 08/29/2024 08:30 [facility] RDH 2 AM NEW 10/09/2024 07:30 [facility] DMD 3 AM 11/26/2024 10:00 [facility] D[facility] 3 AM 12/04/2024 10:00 [facility] DMD 3 AM APPOINTMENT ABBREVIATION JOSEPH (SPOPC OR SO = [place], [facility]) (GOPC OR GO = [place], [facility]) (NHM or NO = [facility]) (VVC - Video Call) (Tel-X Telephone Visit) (TH - Telehealth) /ethan/ ANDRY RIVAS Signed: 08/11/2024 10:15 ANDRY FOSS
--- OUTSIDE RECORDS SUMMARY | 2025-01-20 23:20 | XMS_ITS | Encounter Summary ---
Author Name [facility] [place] [place] Organization [facility] [place] Address [address] [place] [id number] Care Team Providers Care Body Masker Name Role Phone DEVINKAJAL THOMAS Primary Care Provider Unavail able Insurance Providers: [...] 19 MEDICAID TITLE 19 Nov 19, 2010 [id number] STEPHON BAUMANN [place] PATIENT Selected Encounter This section includes the information on record at [place] for the Encounter. Date/Time Encounter Type Encounter Description Reason Provider Source Dec 09, 2024 02:56 PM CASE MANAGEMENT PRIMARY CARE/MEDICINE ICD-10-CM Z71.9 Counseling, unspecified JEFFREY BECKHAM Danisha Encounter Template Text not used by [place] Assessments - Encounter Diagnoses This section includes the primary and secondary diagnoses documented for the Encounter. Date/Time Primary/Secondary Diagnosis Diagnosis Name Provider Source Dec 09, 2024 04:08 PM PRIMARY Counseling, unspecified JEFFREY BECKHAM Plan of Treatment: Future Appointments (+ 6 [...] 20 appointments. The data comes from all [facility]. Appointment Date/Time Appointment Type Appointme nt Facility Name Jan 28, 2025 12:30 PM [facility]BULATORY - MEDICINE [facility] Feb 04, 2025 01:00 PM [facility] Feb 27, 2025 09:45 AM AMBULATORY - NONE [facility] Active, Pending, and Scheduled Orders This section includes a listing of several types of active, pending, and scheduled orders, including clinic medications orders, diagnostic test orders, procedure orders and consult orders; where the start date of the order is 45 days before the date of the Encounter or 45 days after the date of theEncounter. The data comes from all [facility]. Test Date/Time Test Type Test Details Facility Name Nov 05, 2024 06:28 PM Consult Order [facility]-NEUROLOGY [facility] [employer] [facility] Dec 02, 2024 11:30 AM Consult Order [facility]-SLEEP STUDY [facility] Dec 23, 2024 12:00 AM Laboratory - Chemi stry Order LIVER FUNCTION BLOOD (SST-SERUM) [facility] Dec 23, 2024 12:00 AM Laboratory - Chemi stry Order ELECTROLYTE PANEL BLOOD (SST-SERUM) [facility] Jan 20, 2025 01:59 PM Consult Order [facility]-PULMONARY Cons [employer] [facility] Social History: Smoking Status (Most current) and [...] place. Date/Time Current Smoking Status Comment Ziyad ity Nov 28, 2021 01:00 PM VA-TOBACCO FORMER USER [facility] Tobacco Use History This section includes a history of the smoking, or tobacco-related health factors, that were collected on or before the date of the Encounter. The data comes from the [place] facility where the Encounter took place. Date/Time Smoking Status/Tobacco Use Comment F acility Nov 28, 2021 01:00 PM [place]-TOBACCO QUIT 15 YRS OR MORE [facility] Feb 28, 2019 11:48 AM VA-TOBACCO FORMER USER [facility] Feb 28, 2019 11:48 AM VA-TOBACCO QUIT 15 YRS OR MORE [facility] Jan 30, 2018 11:32 AM QUIT TOBACCO USE IN PAST YEAR [facility] April 02, 2017 10:33 AM QUIT TOBACCO USE IN PAST Y EAR reports quitting 4-5 months ago [facility] May 01, 2016 02:52 PM QUIT TOBACCO USE > 7 YEARS AGO Last smoked when I was 23 [facility] Dec 21, 2011 10:15 AM QUIT TOBACCO USE > 7 YEARS AGO Pt. quit when he was 23 years old. [facility] Dec 01, 2010 01:04 PM QUIT TOBACCO USE 1 -7 YEARS AGO [facility] Dec 01, 2010 01:04 PM QUIT TOBACCO USE IN PAST Y EAR Pt. quit smoking a few months ago!! [facility] Advance Directives: All historical and current Section [...] 30, 2024 ADVANCE DIRECTIVE DISCUSSION JEFFREY BECKHAM [facility] Dec 09, 2010 ADVANCE DIRECTIVE CARINA AVERY DILWORTHJOSE LEE Encounter Notes: All associated encounter notes This section contains the clinical notes associated to the Encounter. Date/Time Encounter Note(s) Provider Source Dec 09, 2024 04:12 PM SOCIAL WORK CONSUL T: LOCAL TITLE: CONSULT REPORT/SOCIAL WORK STANDARD TITLE: SOCIAL WORK CONSULT DATE OF NOTE: DEC 09, 2024@16:12 ENTRY DATE: DEC 09, 2024@16:12:43 AUTHOR: JEFFREY BECKHAM EXP COSIGNER: URGENCY: STATUS: COMPLETED MICHELLE received message from [employer] that Elrama would like to meet with MICHELLE to discuss obtaining a will. MICHELLE met with Elrama and review living will component in the [place] Advanced Directive. Elrama discussed that he is looking to create a will to leave assets to certain family members. MICHELLE reviewed information on legal assistance to create a will through an elder law attorney at law. MICHELLE provided with information on the [facility] Referral services. Plan is for Elrama to follow up with local legal services regarding questions around creating a will. /ethan/ JANNY Russo, COIL WRAPPER J[employer] Bore Tool Maker Signed: 12/09/2024 16:13 JEFFREY BECKHAM Dec 09, 2024 02:56 PM SOCIAL WORK NOTE: LOCAL TITLE: SOCIAL WORK NOTE STANDARD TITLE: SOCIAL WORK NOTE DATE OF NOTE: DEC 09, 2024@14:56 ENTRY DATE: DEC 09, 2024@14:56:48 AUTHOR: JEFFREY BECKHAM EXP COSIGNER: URGENCY: STATUS: COMPLETED MICEHLLE received message from [employer] that would like to meet with SW to discuss obtaining a will. MICHELLE met with Elrama and review living will component in the [place] Advanced Directive. discussed that he is looking to create a will to leave assets to certain family members. MICHELLE reviewed information on legal assistance to create a will through an elder law attorney at law. MICHELLE provided with information on the [facility] Referral services. Plan is for Elrama to follow up with local legal services regarding questions around creating a will. /ethan/ JANNY Russo LICSW Jig Bore Tool Maker Signed: 12/09/2024 16:12 JEFFREY BECKHAM
--- OUTSIDE RECORDS SUMMARY | 2025-01-20 23:20 | XMS_ITS ---
Author Name [facility] [place] [place] Organization [facility] [place] Address [address] [place] [id number] Care Team Providers Care Residential Child Care Counselor Name Role Phone KAJAL RUCKER Primary Care [...] 19 MEDICAID TITLE 19 Nov 19, 2010 [id number] STEPHON BAUMANN [place] PATIENT Selected Encounter This section includes the information on record at [place] for the Encounter. Date/Time Encounter Type Encounter Description Reason Provider Source Mar 06, 2024 11:15 AM OFF/OP EST MARCH X REQ Y/Q PRIMARY CARE/MEDICINE ICD-10-CM R05.9 Cough, unspecified PARRISH,RAMONITA K E Encounter Template Text not used by [place] Assessments - Encounter Diagnoses This section includes the primary and secondary diagnoses documented for the Encounter. Date/Time Primary/Secondary Diagnosis Diagnosis Name Provider Source Mar 06, 2024 01:02 PM PRIMARY Cough, unspecified PARRISH,RAMONITA K DAVID Mar 06, 2024 01:02 PM SECONDARY Pain, unspecified PARRISH,RAMONITA K DAVID Plan of Treatment: Future Appointments (+ 6 months) and Future Tests (+/- 45 days) The Plan of Treatment section includes future care activities for the patient [facility] [place] [facility] This section includes future appointments and future orders which are active, pending or scheduled. Future Appointments This section includes appointments that were scheduled to occur 6 months from the date of the Encounter, up to a maximum of 20 appointments. The data comes from all [place] treatment facilities. Appointment Date/Time Appointment Type Appointme nt Facility Name Mar 07, 2024 03:00 PM [facility]ORY - [facility] May 21, 2024 12:45 PM AMBULATORY - NONE [facility] May 30, 2024 01:30 PM [facility]IC[facility] May 30, 2024 03:00 PM [facility]ORY [facility]ICINE [facility] Jun 17, 2024 03:00 PM AMBULATORY - NONE [facility] Jun 20, 2024 11:30 AM [facility]ORY - MEDICINE [facility] Jul 09, 2024 07:30 AM AMBULATORY - NONE [facility] Jul 16, 2024 10:10 AM [facility] Jul 17, 2024 09:10 AM AM[facility]ULATORY - MEDICINE [facility] Aug 12, 2024 01:30 PM AMBULATORY - NONE [facility] Aug 19, 2024 03:00 PM [facility] Aug 29, 2024 08:30 AM AMBULATORY - NONE [facility] Vital Signs: All taken on the encounter date This section contains inpatient and outpatient Vital Signs collected on the date of the Encounter. Date/Time Temperature Pulse Blood Pressure Respiratory Rate SP02 Pain Height Weight Body Mass Index Source Mar 06, 2024 11:24 AM 99.3 81 111/79 18 93 2 [facility] IE Social History: Smoking Status (Most current) and Tobacco Use (All prior to encounter date) This section includes the most current, and the historical, smoking and tobacco- related health factors from the [place] facility where the Encounter took place. Current Smoking Status This section includes the most current smoking, or tobacco-related health factor, from the [place] facility where the Encounter took place. Date/Time Current Smoking Status Comment Ziyad granda Nov 28, 2021 01:00 PM VA-TOBACCO FORMER USER [facility] [facility] Tobacco Use History This section includes a history of the smoking, or tobacco-related health factors, that were collected on or before the date of the Encounter. The data comes from the [place] facility where the Encounter took place. Date/Time Smoking Status/Tobacco Use Comment F acility Nov 28, 2021 01:00 PM VA-TOBACCO QUIT 15 YRS OR MORE [facility] Feb 28, 2019 11:48 AM VA-TOBACCO FORMER USER [place] [facility] Feb 28, 2019 11:48 AM VA-TOBACCO QUIT 15 YRS OR MORE [place] Jan 30, 2018 11:32 AM QUIT TOBACCO USE IN PAST YEAR [place] [facility] April 02, 2017 10:33 AM QUIT TOBACCO USE IN PAST Y EAR reports quitting 4-5 months ago [place] May 01, 2016 02:52 PM QUIT TOBACCO USE > 7 YEARS AGO Last smoked when I was 23 [place] Dec 21, 2011 10:15 AM QUIT TOBACCO USE > 7 YEARS AGO Pt. quit when he was 23 years old. [place] Dec 01, 2010 01:04 PM QUIT TOBACCO USE 1 -7 YEARS AGO [place] [facility] Dec 01, 2010 01:04 PM QUIT TOBACCO USE IN PAST Y EAR Pt. quit smoking a few months ago!! [place] [facility] Advance Directives: All historical and current Section Date Range: From patient's date of to the date document was created. This section includes ALL of a patient's completed or amended [place] Advance and Rescinded Directives. The entries below indicate that a directive exists for the patient, but an actual copy is not included with this document. The data comes from all [facility]. Date Advance Directives Provider Source Dec 30, 2024 ADVANCE DIRECTIVE DISCUSSION JEFFREY BECKHAM [place] Dec 09, 2010 ADVANCE DIRECTIVE CARINA AVERY Encounter Notes: All associated encounter notes This section contains the clinical notes associated to the Encounter. Date/Time Encounter Note(s) Provider Source Mar 06, 2024 11:26 AM PRIMARY CARE NOTE: LOCAL TITLE: WALK-IN NOTE PRIMARY CARE (T) STANDARD TITLE: PRIMARY CARE NOTE DATE OF NOTE: MAR 06, 2024@11:26 ENTRY DATE: MAR 06, 2024@11:27:05 AUTHOR: RAMONITA SENIOR COSIGNER: URGENCY: STATUS: COMPLETED Data: 78year old MALE reports to Primary Care clinic for Walk-In visit. 's PCP is STELEA,ANATOLY F, Today Vet walks in to clinic with complaint of feeling sore all over. Last recorded Vital Signs are: Temperature:99.3 F [37.4 C] (03/06/2024 11:24) Pulse:81 (03/06/2024 11:24) Blood Pressure:111/79 (03/06/2024 11:24) Respiration:18 (03/06/2024 11:24) Pain:2 (03/06/2024 11:24) Vet reports current allergies are: Remote Allergy Data No Remote Allergy/ADR Data available for this patient Current Medications from Active Med list include: Active Outpatient Medications (including Supplies): Active Outpatient Medications Status = 1) ALBUTEROL 90MCG (CFC-F) 200D ORAL INHL INHALE 2 PUFFS ACTIVE BY MOUTH EVERY 4 HOURS NEEDED COUGH,WHEEZING OR SHORTNESS OF BREATH 2) AMOXICILLIN 875/CLAV K 125MG TAB TAKE 1 TABLET BY ACTIVE MOUTH TWICE DAILY FOR 5 DAYS FOR INFECTION 3) ATORVASTATIN CALCIUM 80MG TAB TAKE ONE-HALF TABLET BY ACTIVE MOUTH ONCE DAILY AT BEDTIME FOR CHOLESTEROL 4) AZITHROMYCIN 250MG TAB TAKE TWO TABLETS BY MOUTH ONCE ACTIVE DAILY FOR 5 DAYS 5) CARBOXYMETHYLCELLULOSE NA 0.5% OPH SOLN INSTILL 1 ACTIVE DROP INTO EACH EYE FOUR TIMES DAILY NEEDED 6) CELECOXIB 200MG CAP TAKE ONE CAPSULE BY MOUTH TWICE ACTIVE DAILY FOR ARTHRITIS 7) DEXAMETHASONE 0.1/TOBRAMYC 0.3% OPH SUSP INSTILL 1 ACTIVE DROP INTO EACH EYE THREE TIMES A DAY 8) FLUTICAS 250/SALMETEROL 50 INHL DISK 60 INHALE 1 PUFF ACTIVE BY MOUTH TWICE DAILY - RINSE MOUTH AFTER USE 9) FLUTICASONE PROP 50MCG 120D NASAL INHL INSTILL 1 ACTIVE SPRAY INTO EACH NOSTRIL ONCE DAILY PLEASE SPRAY 2 SPRAYS IN EACH NOSTRIL DAILY FOR 3-4 WEEKS , THEN DECREASE TO 1 SPRAY DAILY THEREAFTER 10) HCTZ 25MG/LOSARTAN 100MG TAB TAKE 1 TABLET BY MOUTH ACTIVE (S) ONCE DAILY 11) HYDROPHILIC (EQV EUCERIN) TOP CREAM APPLY A SMALL ACTIVE AMOUNT TOPICALLY ONCE DAILY TO DRY,CRACKED SKIN ON FEET 12) LORATADINE 10MG TAB TAKE ONE TABLET BY MOUTH ONCE ACTIVE DAILY FOR ALLERGY 13) LUBRICATING (PF) OPH OINT APPLY SMALL AMOUNT INTO ACTIVE EACH EYE AT BEDTIME NEEDED 14) MIRABEGRON 50MG SA TAB TAKE ONE TABLET BY MOUTH ONCE ACTIVE DAILY 15) MONTELUKAST NA 10MG TAB TAKE ONE TABLET BY MOUTH ONCE ACTIVE DAILY FOR ASTHMA 16) NAPHAZOLINE HCL 0.012% OPH SOLN INSTILL 1 DROP INTO ACTIVE EACH EYE TWICE DAILY NEEDED FOR EYE IRRITATION 17) SILDENAFIL CITRATE 25MG TAB TAKE ONE TABLET BY MOUTH ACTIVE ONCE DAILY NEEDED FOR ERECTILE DYSFUNCTION TAKE 1 HOUR PRIOR TO SEXUAL ACTIVITY 18) TRIAMCINOLONE ACETONIDE 0.1% CREAM APPLY A THIN LAYER ACTIVE TOPICALLY TWICE DAILY NEEDED Action: comes to clinic asking I need to be checked for pneumonia, 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 I finished my 2 antibiotics states he went to [facility] last week but left as he felt they were not doing anything for him. the next day he states he went to [facility] for chest pain. Confirmed seen at [facility] and discharged on 02/28/24. [facility] note: Patient: LEONOR BAUMANN Age: 78 Years Sex: Male : 1945 Patient Information Discharge Location: [facility] Primary Care Physician: Myla Harmon MD, I Admit Date/Time: 02/27/24 16:24 Discharge Disposition Discharge Disposition: Discharge Diagnosis Leukocytosis (D72.829) chest pain _ Discharge Medications Albuterol (albuterol CFC free 90 mcg/in inhalation aerosol) 2 puff(s) Inhalation Every 4 hours as needed as needed for wheezing Amoxicillin-Clavulanate (Augmentin 875 mg-125 mg oral tablet) 1 tab(s) By Mouth 2 times a day for 5 Days Aspirin (aspirin 81 mg oral delayed release tablet) 81 Milligram 1 tablet By Mouth Daily Atorvastatin (Lipitor 40 mg oral tablet) 1 tab(s) 40 Milligram By Mouth Daily at bedtime Azithromycin (azithromycin 500 mg oral tablet) 1 tab(s) 500 Milligram By Mouth Daily for 5 Days Brimonidine Ophthalmic (brimonidine 0.2% ophthalmic solution) 1 [...] 1 tab(s) 20 Milligram By Mouth Daily Medications Started augmentin and azithromycin Medications Discontinued none Doses Changed none Allergies Allergies (Active and Proposed Allergies Only) Flomax (Severity: Unknown severity, Onset: Unknown) Reactions: Dizziness, strange confused feeling enalapril (Severity: Unknown severity, Onset: 12/06/2003) Reactions: Urticaria, Flushing PCP Follow-Up/Heads-Up repeat cxr thrombocytopenia Hospital Course 75-year-old male with past medical history of hypertension, hyperlipidemia, Birds, fancier lungs lung to ED with complaint of chest pain CP: Possible pneumonia CP atypical and likely noncardiac D-dimer negative making pulmonary embolism unlikely EKG without any acute change Troponin without any acute finding ECHO no acute CXR: IMPRESSION: Limited study due to extensive chronic changes. Likely superimposed airspace disease in the left lower hemithorax. Follow-up after treatment is recommended. antibx on d/c repeat CXR with PCP Tingling: Does not follow a pattern of stroke. Symptoms there for more than 72 hours and has resolved completely. Patient ambulating without any issues CT head no acute Hypokalemia: resolved thrombocytopenia: PCP f/u Leukocytosis: Likely reactive but could also be element of inflammation as evident on chest x-ray. Antibiotic and repeat chest x-ray with primary care physician Today feels fine with no complaint. Having stable vitals. CTA BL, S1, S2 no GMR.Abd SOft, NT, BS+ve, AAO3. no pedal edema Pt walking in hallways with no complaint or SOB Objective Physical Exam Pending Results Add On Lab Order ordered on 02/27/2024 Add On Lab Order ordered on 02/27/2024 Patient Education Titles WebMD Ignite Patient Education - Uncertain Causes of Chest Pain Follow-Up Appointments Added Follow Up Time Frame Comments Prescription has been sent to pharmacy in [facility] Myla Harmon MD 1 to 2 weeks for the follow upthrombocytopeniarepeat Chest x ray in 4 to 6 wks Post Discharge Care Discharge * 02/28/24 15:24:00 EDT Discharge Prescriptions * ePrescribed, 02/28/24 15:24:00 EDT [facility] states he continues with feeling sore all over States he is concerned he still has pneumonia. denies chest pain Denies diarrhea Denies any changes in dyspnea Denies headache Lungs withi rales to left lower lung RR even and non-labored. O2 sat baseline for this [facility] Reports fatigue Reports decrease appetite states he will go home and rest, states he may go back to hospital for Xray. Advised for new or worsening symptoms to return to [facility]. Verbalized understanding. /ethan/ RAMONITA SENIOR RN PRIMARY CARE RN Signed: 03/06/2024 13:03 Receipt Acknowledged By: 03/06/2024 14:26 /ethan/ ROSALIA BARRIOS RN- REGISTERED NURSE RAMONITA SENIOR
--- OUTSIDE RECORDS SUMMARY | 2025-01-20 23:20 | XMS_ITS | Encounter Summary ---
Author Name [facility] [place] [facility] [place] Address [address] [place] [address] Care Team Providers Care Health Diagnostics Teacher Name Role Phone KAJAL RUCKER Primary Care [...] 19 MEDICAID TITLE 19 Nov 19, 2010 [id number] STEPHON BAUMANN [place] PATIENT Selected Encounter This section includes the information on record at [place] for the Encounter. Date/Time Encounter Type Encounter Description Reason Provider Source Jan 24, 2024 11:30 AM OFFICE O/P EST LOW 20 MIN PODIATRY ICD-10-CM Q66.50 Congenital pes planus, unspecified foot TRENT ANDREWS E Encounter Template Text not used by [place] Assessments - Encounter Diagnoses This section includes the primary and secondary diagnoses documented for the Encounter. Date/Time Primary/Secondary Diagnosis Diagnosis Name Provider Source Jan 25, 2024 03:38 PM PRIMARY Congenital pes planus, unspecified foot TRENT ANDREWS [facility] Plan of Treatment: Future Appointments (+ 6 months) and Future Tests (+/- 45 days) The Plan of Treatment section includes future care activities for the patient [facility] [place] [facility]. This section includes future appointments [...] 2024 08:00 AM [facility] Feb 27, 2024 09:15 AM [facility] - [facility] Feb 27, 2024 09:30 AM AMBULATORY - MEDICINE [facility] Mar 06, 2024 11:15 AM AMBULATORY - MEDICINE [facility] Mar 07, 2024 03:00 PM AMBULATORY - MEDICINE [facility] May 21, 2024 12:45 PM AM[place]ULATORY [place] NONE [facility] [place] [facility] May 30, 2024 01:30 PM AMBULATORY - MEDICINE [facility] May 30, 2024 03:00 PM AMBULATORY - MEDICINE [facility] Jun 17, 2024 03:00 PM AMBULATORY - NONE [facility] [place] [facility] Jun 20, 2024 11:30 AM AMBULATORY - MEDICINE [facility] Jul 09, 2024 07:30 AM [facility]UL[facility] [place] NONE [facility] [place] [facility] Jul 16, 2024 10:10 AM [place] [facility] [place] [facility] Jul 17, 2024 09:10 AM [place] [facility] [place] [facility] Social History: Smoking Status (Most [...] 29, 2023 12:43 PM VA-TOBACCO FORMER USER [place] [facility] [place] [facility] Tobacco Use History This section includes a history of the smoking, or tobacco-related health factors, that were collected on or before the date of the Encounter. The data comes from the [place] facility where the Encounter took place. Date/Time Smoking Status/Tobacco Use Comment F acility Nov 29, 2023 12:43 PM VA-TOBACCO QUIT 15 YRS OR MORE [facility] [place] [facility] Nov 10, 2022 01:28 PM VA-TOBACCO FORMER USER [place] [facility] [place] [facility] Nov 10, 2022 01:28 PM VA-TOBACCO QUIT 15 YRS OR MORE [place] [facility] [place] [facility] Advance Directives: All historical and current Section Date Range: From patient's date of to the date document was created. This section includes ALL of a patient's completed or amended [place] Advance and Rescinded Directives. The entries below indicate that a directive exists for the patient, but an actual copy is not included with this document. The data comes from all [place] facilities. Date Advance Directives Provider Source Dec 30, 2024 ADVANCE DIRECTIVE DISCUSSION JEFFREY BECKHAM Dec 09, 2010 ADVANCE DIRECTIVE CARINA AVERY Encounter Notes: All associated encounter notes This section contains the clinical notes associated to the Encounter. Date/Time Encounter Note(s) Provider Source Feb 20, 2024 11:51 AM ADMINISTRATIVE NOTE: LOCAL TITLE: ADMINISTRATIVE NOTE STANDARD TITLE: ADMINISTRATIVE NOTE DATE OF NOTE: FEB 20, 2024@11:51 ENTRY DATE: FEB 20, 2024@11:51:07 AUTHOR: CHARI CLARKE EXP COSIGNER: URGENCY: STATUS: COMPLETED RTC dispositioned due to veterans failure to respond to all contact efforts per department standards. /ethan/ CHARI CLARKE LEAD INDUSTRIAL WASTE INSPECTOR Signed: 02/20/2024 11:51 CHARI CLARKE [place] [facility] [place] [facility] Jan 24, 2024 11:25 AM PODIATRY NOTE: LOCAL TITLE: PODIATRY NOTE STANDARD TITLE: PODIATRY NOTE DATE OF NOTE: JAN 24, 2024@11:25 ENTRY DATE: JAN 24, 2024@11:25:58 AUTHOR: TRENT ANDREWS EXP COSIGNER: URGENCY: STATUS: COMPLETED Podiatry [facility] Follow up Provider: Trent Andrews Date: JAN 24, 2024 LEONOR BAUMANN [address] [place] [id number] Jun [birth year] [id number] PATIENT PHONE - [phone] Primary Care: WONG VALENCIA Visit Concern: Patient is a 78-year-old nondiabetic male with history of bilateral foot pain which has been managed with akfr-jhp-xhrrbrv orthotics. Patient is seen periodically for renewal of orthotics comes in today with no complaints of pain or discomfort requesting to have nails cut and new pair of inserts. No other complaints. Takes celecoxib for arthritis when he does this he has no pain and discomfort in his feet. 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 05/23/2022 WILIAM CARDOZA Seborrheic dermatitis of scalp L21. 02/14/2021 WILIAM CARDOZA Arthritis M19.90 02/14/2021 WILIAM CARDOZA Recurrent sinusitis R69. 02/11/2021 RADHA,KELLY Colonoscopy Screening R69. 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 06/18/2020 WILIAM CARDOZA Bradycardia R69. 06/18/2020 WILIAM CARDOZA Benign prostatic hypertrophy withou 07/05/2020 WILIAM CARDOZA Cortical senile cataract (ICD-9-CM 02/10/2011 TRINY RHODES Hyperlipidemia E78.2 07/05/2020 WILIAM CARDOZA Allergic rhinitis J30.9 07/05/2020 WILIAM CARDOZA History of cholecystectomy R69., On 06/18/2020 WILIAM CARDOZA Active mediciation: Active Outpatient Medications (including Supplies): Active Outpatient Medications Status 1) ALBUTEROL 90MCG (CFC-F) 200D ORAL INHL [...] THIN LAYER ACTIVE TOPICALLY TWICE DAILY NEEDED Allergies: Data on this list may not be complete. Please check JLV. FACILITY ALLERGY/ADR -------- [facility] NO KNOWN ALLERGIES Lab data: CBC TREND Collection DT Spec WBC RBC HGB HCT MCV MCH PLT 04/26/2023 09:37 BLOOD 11.32 H 5.99 H 17.4 H 53.0 H 88.5 29.0 108 L 04/18/2023 08:50 BLOOD 12.41 H 5.72 H 17.1 H 50.6 H 88.5 29.9 124 L 09/28/2022 10:12 BLOOD 11.01 H 5.65 16.1 48.0 85.0 28.5 129 L 04/13/2022 10:31 BLOOD 11.61 H 5.92 H 17.1 H 51.6 H 87.2 28.9 153 01/19/2022 13:40 BLOOD 12.85 H 5.66 16.6 49.6 87.6 29.3 120 L -- CHEM 7 TREND LAB CUMULATIVE SELECTED Collection DT Spec GLUCOSE BUN CREATIN Sodium K+/Pot CL CO2 11/23/2023 08:02 SERUM 92 10 0.79 137 4.1 104 25 04/26/2023 09:37 SERUM 90 15 0.75 137 4.1 102 24 04/18/2023 08:50 SERUM 91 10 0.79 135 4.4 101 26 11/22/2022 10:34 SERUM 82 13 0.74 132 L 4.1 101 24 11/10/2022 14:02 SERUM 104 H 9 0.78 126 L 3.8 91 L 29 LAB CUMULATIVE SELECTED 2 No selection items chosen for this component. CHEM 7 Results Collection DT Spec Sodium K+/Pot CL CO2 GLUCOSE BUN 11/23/2023 08:02 SERUM 137 4.1 104 25 92 10 04/26/2023 09:37 SERUM 137 4.1 102 24 90 15 -- PT INR TREND Collection DT Spec INR PT 04/26/2023 09:37 PLASM 1.1 12.4 09/28/2022 10:12 PLASM 1.0 11.6 04/13/2022 10:31 PLASM 1.1 12.6 01/19/2022 13:40 PLASM 1.2 13.1 -- II - Imaging Impression (max 1 occurrence) Date Procedure CPT Status Case # 02/07/2023 [place] [id number] Verified 190 NEEDLE PLACEMENT Fluoroscopic guidance for interventional pain injection. -Bounding palpable pedal pulses warm pink skin bilaterally -No edema -Muscle bulk and tone normal for patient's age and stature -Gait normal propulsive -Sensation normal -Mild pes planus -Nails normal -Mild xerosis cutis of the skin of the heels but no fissures or cracks today -Remainder of exam unremarkable Impression: -Pes planus Plan: -Renew [facility] behavioral health orthotics size medium ordered -Eucerin order: Absorbase petroleum skin care cream to be applied to dry cracked skin area on feet once daily to promote skin hydration reduce fissuring and cracking and prevent infection. FU 6 mons to a year. -As part of the service the pertinent primary care, specialty care and urgent care notes have been reviewed as well as the patient's medication list, problem list, and current imaging as well as past imaging, laboratory data and other pertinent contributory consults. -All new and discontinued medications have been discussed in detail with the patient and or caregiver, including indications for additions and deletions, as well as possible side effects, interactions as foreseen, and risk of not taking as prescribed If applicable, the patient was advised clearly on application of wound care agents how to apply and when to apply. The patient was able to recitethis information back to the prescriber with good understanding and agreed to the plan of care as indicated above. -Plan of care discuss with the patient and or caregiver, including medical decision making which includes discussion of abnormal lab results, imaging and other diagnostic modalities as well as results of the physical exam and sap solution manager consultant opinions and recommendations as sought. Alternatives to surgery or outlined care above as appropriate have also been discussed. -The patient/ caregiver has displayed good understanding of above and with no further questions at this time. Patient is aware of next appointment and agrees to follow-up interval. Patient agrees to seek sooner follow up if any irregular events occur in between such as cardinal signs of infection, increased pain or deformity. -The on this visit was given information My [employer] service and encouraged to enroll if not already having done so. /ethan/ TRENT ANDREWS DPM PODIATRY ATTENDING Signed: 01/25/2024 15:38 TRENT ANDREWS [place] [facility]
== END ==
LOC: HO.SL 19:30
PROVIDERS: Visit Provider Nurse Practitioner Family
DX: Z13.89 Encounter for screening for other disorder (principal)